=== PATIENT | male | born 1955 | race Caucasian/White ===

== ENCOUNTER → 2018-03-03 14:50 | Outpatient (REF) | payer OTHER, SELFPAY | LOC: LAB 14:50 | PROVIDERS: Visit Provider Otolaryngology | DX: H60.393 Other infective otitis externa, bilateral (principal) | CPT/HCPCS: 87070; 87186; 87205 ==

== ENCOUNTER 2019-02-27 05:48 | Inpatient (IN) | payer OTHER, SELFPAY ==
[2019-02-26 11:59] VITALS: BMI 21.9
[2019-02-27] VITALS (43 sets, daily range): BP systolic 65–192; BP diastolic 39–116; PULSE 81–143; RESP 0–24; TEMP 36.2–37.1; O2SAT 88–100; BMI 21.9
--- NOTE | 2019-02-27 | DI.RAD.S_ITS ---
PROCEDURE: XR CERVICAL SPINE 2V OR 3V INDICATIONS: C3-7 ACDF TECHNIQUE: 5 operative views areof the cervical spine were acquired. COMPARISON: [facility] FABI Grewal, XR CERVICAL SPINE 2 OR 3 VIEWS, 12/08/2018, 14:26. FINDINGS: Operative images demonstrate ACDF at C3-C7 with interbody fusion material placed at C3-C7 and bilateral facet fusion material placed at C3-C7. IMPRESSION: Operative imaging employed for multilevel fusion as described above. Dictated by: Johnny Oneal M.D. on 02/27/2019 at 12:35 Approved by: Johnny Oneal M.D. on 02/27/2019 at 12:42
[2019-02-27] MEDS: LACTATED RINGERS 1,000 ML 42 ML IV ×2 (07:10→09:07)
--- NOTE | 2019-02-27 07:16 | PM.PREOP ---
Pre-operative Note Interval Note History & Physical reviewed/Exam performed by Physician: Yes Changes to H&P: No
[2019-02-27] MEDS: CEFAZOLIN 2 GM/100 ML FROZ.PIGGY IV ×3 (07:45→22:10)
[2019-02-27] MEDS: BUPIVACAINE 0.5% W/ EPI (PF) 30 ML VIAL INJ (08:31)
[2019-02-27] MEDS: THROMBIN (RECOMBINANT) 5,000 UNIT VIAL 5000 UNIT TOP (08:32)
[2019-02-27] MEDS: SODIUM CHLORIDE 0.9% 1,000 ML, GENTAMICIN 80 MG IRR (08:35)
--- NOTE | 2019-02-27 08:49 | SUR.OPER ---
Supine, head on gel donut. Arms padded with gel pads, tucked at sides, towel roll under shoulders. Safety belt at thigh. Legs uncrossed.
--- NOTE | 2019-02-27 08:50 | SUR.OPER ---
Prone on padded OR bed, head in foam head support, gel chest rolls, gel pad under knees, pillows under lower legs, toes free of pressure.Arms secured with draw sheet at sides by . Safety belt at thigh.
--- NOTE | 2019-02-27 11:30 | PM.OP.1 ---
Operative Date/Time/Diagnoses Date of procedure: 02/27/19 Time of procedure: 11:30 Pre-op diagnosis: Cervical stenosis with myelopathy Post-op diagnosis: same Procedure & Clinicians Procedure: C3-4, C4-5, C5-6, C6-7 posterior instrumented fusion C3-4, C4-5, C5-6, C6-7 ACDF with cages Iliac crest bone graft aspirate Use of microscope Same procedure as scheduled: Yes Indications: [age] year old male with progressive cervical myelopathy. They had failed conservative management and requested operative intervention. Risks and benefits of surgery were discussed and appropriate consents were obtained. Surgeon: Joo Osullivan [employer] Operator: Navya Castellano Anesthesia Type: General Operative Notes Findings: None Closure Type: primary Specimen(s): none sent Prosthetic devices, grafts, tissues, transplants, or devices: [place] Cavus posterior Eugene DARWIN-C anterior Applied: catheter Estimated Blood Loss (mL): 5 Blood products transfused: none Procedure in detail: The patient was brought to the operating room and intubated on the stretcher. Time-out was performed. There were then rolled over to the well-padded prone position on chest rolls. Two views of fluoroscopy were taken to confirm our positioning. The neck was then prepped and draped in the standard sterile fashion. Preoperative antibiotics were given. Using fluoroscopy, we localized for planned incisions. Two small 8 mm horizontal incisions were made over the lateral masses approximately 2 fingers below our planned surgical site. We then spread down and opened up the fascia. Then percutaneously placed our Steinmann pin through the soft tissue into the facet joint at C3-4 under fluoroscopic visualization. We used the reamer to decorticate the lateral masses compromising the facet. A trocar was placed over the Steinmann pin into the facet and then the pin was removed. We used a rasp to decorticate the facet joint itself. We then filled the Cavus cage with Primagen bone graft and impacted it into the facet joint at C3-4 under fluoroscopic guidance. We then took the lateral mass screw and placed it through the cage and then into the lateral mass for the posterior screw fixation. The tip inserter was removed and we packed more bone graft down the trocar covering the lateral mass. This was done bilaterally. This completed the instrumented posterior fusion at C3-4. We then went to the next levels at C4-5, C5-6, and C6-7. The same procedure was performed with preparation, placement of the cage with bone graft, and placement of the screw for bilateral instrumented posterior fusion at C4-5, C5-6, and C6-7. The wounds were irrigated. The skin was closed and a sterile dressing placed. The patient was then rolled over to the table in the supine position and positioned for the anterior surgery. The arms were tucked and a shoulder roll was placed. The neck and left iliac crest were prepped and draped in the standard sterile fashion. A 3 cm oblique incision was made on the left side of the neck along the skin fold. Bovie was used to split the platysma. We then bluntly dissected a standard anterolateral approach to the precervical fascia. A marker was placed and x-ray taken to confirm our positioning. We then used the Bovie to the subperiosteally lift up the longus colli muscles. Self-retaining retractors were placed. We then placed [place] pins and distracted across the C6-7 disc space. We brought in the microscope. A complete anterior discectomy was performed at C6-7 using a combination of scalpel, curettes, pituitaries, and Kerrison rongeurs. The bur was used to take down the posterior osteophytes as well as decorticate the disc space. We then released the PLL and used the Kerrison to remove any further posterior osteophytes and disc material. At the end a nerve hook could be swept cephalad caudally and out the neural foramen and everything was open. We trialed for our cages. A small stab incision was made over the left iliac crest. We placed a Jamshidi aspiration needle into the iliac crest and aspirated several mL of bone marrow graft. We then took our Eugene LDR DARWIN-C cage and packed it with Primagen, and mixed in the bone marrow aspirate. The cage was then placed into the disc space under fluoroscopic guidance. The 2 locking plates were placed through the cage for fixation. This completed the ACDF at C6-7. We then went to the next levels at C5-6, C4-5, and C3-4. Again a complete diskectomy was performed including taking down the PLL and posterior osteophytes and disc material. The endplates were prepped with a bur. We trialed and then packed our DARWIN-C cage with the bone graft and then placed into the disc space. The locking plates were placed as well. This completed the ACDF at C3-4, C4-5, and C5-6. Final x-rays were taken. The wound was copiously irrigated. There was no bleeding. The carotid was bleeding nicely. The platysma was closed. The superficial skin were closed. A Steri-Strip was placed over the iliac crest incision. Sterile dressings were placed. The patient was then extubated and brought to the recovery room without complication. Complications: none Post-operative Condition: stable Disposition: PACU Plan for aftercare: Inpatient. Up with PT.
--- NOTE | 2019-02-27 12:50 | SUR.PHASEI ---
1240 Patient moving minimal air, no rise and fall of chest noted. Patient unresponsive to verbal,tactile or sternal rub. Anesthesia to bedside to assist nurses. Oral airway placed with no improvement in air movement. Nasal trumpet, size 8, placed to right nare by Dr Rose. Patient still exhibits no response. Paged Respiratory therapy to assist with possible intubation and ABG draw. Additional nurses to bedside to assist.
--- NOTE | 2019-02-27 12:58 | SUR.PHASEI ---
Addendum entered by Vera Vegas R.N. 02/27/19 15:31: Patient's HR increased to 143 Sinus Tachycardia after receiving Robinul and Neostigmine. Original Note: Placed patient on cardiac defib pads and on cardiac defibrillator. Labetalol 15 mg IV given by Dr Rose. ABG drawn from left wrist by RT.
[2019-02-27 13:18] LABS: Add Manual Diff / Slide Review NO; Basophils Absolute Auto 0 /uL (0-100); Basophils Percent Auto 0.2 % (0-2); Eosinophils Absolute Auto 0 /uL (0-450); Eosinophils Percent Auto 0.3 % (2-4); Hematocrit 47.7 % (41-53); Lymphocytes Absolute Auto 1000 /uL (1100-4500); Mean Corpuscular HGB Conc 33.5 % (30-36); Mean Corpuscular Hemoglobin 32.9 PG (26-34); Mean Corpuscular Volume 97.9 fL (80-100); Monocytes Absolute Auto 300 /uL (0-900); Monocytes Percent Auto 2.8 % (3-14); Neutrophils Absolute Auto 8300 /uL (1500-7000); Neutrophils Percent Auto 86.7 % (50-75); Platelet Count 204 X10^3/uL (150-400); Red Blood Cell Count 4.87 X10^6/uL (4.5-5.9); Red Cell Distribution Width 13.9 % (11.6-14.8); White Blood Cell Count 9.6 X10^3/uL (4.5-11.0)
--- NOTE | 2019-02-27 13:18 | DI.RAD.S_ITS ---
PROCEDURE: XR CHEST 1V INDICATIONS: post intubation TECHNIQUE: One view of the chest was acquired. COMPARISON: None. FINDINGS: Surgical changes and devices: Endotracheal tube is seen with tip projecting approximately 7.8 cm above the andrew. Lungs and pleura: Scattered subsegmental atelectasis and/or scarring. No focal consolidation. No pleural effusions or pneumothorax. Mediastinum: Mediastinal contours appear normal. Heart size is normal. Bones and chest wall: No suspicious bony lesions. Overlying soft tissues appear unremarkable. IMPRESSION: Endotracheal tube with the tip projecting 7.8 cm above the andrew. Scattered subsegmental atelectasis and/or scarring. No acute consolidation. Dictated by: Crow Chan M.D. on 02/27/2019 at 13:56 Approved by: Crow Chan M.D. on 02/27/2019 at 13:57
--- NOTE | 2019-02-27 13:24 | PM.PROC.1 ---
Procedures Date/Time Date of procedure: 02/27/19 Time of procedure: 13:20 Intubation Time out performed: Yes Sedative: other (propofol) Mg given: 150 Paralytic: succinylcholine Mg given: 58 Laryngoscope: fiber optic video scope ET tube size: 8 ET tube uncuffed: No Tube secured depth (cm): 23 Tube secured location: teeth Tube placement confirmation: visualized tube passing through cords, equal breath sounds bilaterally, no breath sounds over epigastrium and confirmation by capnometry Patient tolerated procedure: no complications Intubation complications: none Additional comments: PACU, pt unresponsive with inadequate respiration post op, no change with narcan x 3, neostigmine 2mg and glycopyrrolate 0.4mg. RSI, DL x 1 grade 1 with glidescope LP3. CXR confirmed ETT palcement.
--- NOTE | 2019-02-27 13:30 | SUR.PHASEI ---
1315 RT here to assist with intubation due to still no response from patiient after previous measures. RSI done with no difficulty, 8 ET tube inserted. Good breath sounds bilaterally upon auscultation. Good color change with CO2 detector. Xray notified of need for PCXR post intubation.
[2019-02-27 13:33] LABS: Alanine Aminotransferase 106 IU/L (<50); Albumin 3.8 g/dL (3.5-5.0); Albumin Globulin Ratio 1.3 (1.0-2.8); Alkaline Phosphatase 76 U/L (38-126); Aspartate Aminotransferase 240 IU/L (17-59); Blood Urea Nitrogen 24 mg/dL (9-20); Calcium 9.1 mg/dL (8.4-10.2); Chloride 98 mmol/L (98-107); Estimated Glomerular Filt Rate > 60.0 mL/min (>60); Globulin 2.9 g/dL (1.7-4.1); Glucose 144 mg/dL (80-110); Sodium 140 mmol/L (137-145); Total Protein 6.7 g/dL (6.3-8.2)
--- NOTE | 2019-02-27 13:33 | SUR.PHASEI ---
Preparing patient for transport to ICU. O2 sat 99% with Et tube, bp 74/47, map of 56.
--- NOTE | 2019-02-27 13:34 | SUR.PHASEI ---
Addendum entered by Vera Vegas R.N. 02/27/19 15:32: Gave bedside report to IGNACIO Maria Original Note: To ICU via bed with RT, additional nursing staff. Patient on transport monitor at transfer. This nurse will give bedside report to ICU nurse.
[2019-02-27 13:42] LABS: Carbon Dioxide 38 mmol/L (22-32); HEMOLYSIS 20 (0-50)
--- NOTE | 2019-02-27 14:18 | P.CONS_ITS ---
History of Present Illness Consult details Date Patient Seen: 02/27/19 Time Patient Seen: 14:18 Chief complaint: Cervical Fusion Anterior/Posterior Reason for consult: Hypercarbic respiratory failure Requesting provider: Joo Osullivan Narrative: Edouard Jung is a 63-year-old male with past medical history of hypertension and hypothyroidism who is postoperative day 0 after C3-C7 posterior fusion and ACDF with cages who needed to be intubated in the PACU as the patient was extremely somnolent. Blood gas was checked and his pCO2 was 130. The patient was intubated and brought to the ICU. History is obtained from the patient's at bedside. She states over the past 2 weeks the patient has been profoundly fatigued, mumbling, and falling asleep easily while sitting on the couch or sometimes even speaking with his . She does endorse periods of apnea but not profound snoring at night when he is asleep. He has woken up on occasion with anxiety about not being able to breathe. He fell and broke a rib approximately 3 months ago for which the patient has not been breathing heavily since. He has also been on opiate pain medications intermittently. The also endorses significant dyspnea on exert ion, limited to a few feet. He smokes about a pack a day. She does endorse that he did drink alcohol up until his rib fracture a few months ago quite heavily. But has cut back. She did say he had 2 glasses of whiskey the night before surgery because he has been having difficulty sleeping. She also endorses an 80-90 lb weight loss over the past year which is unintentional. Meds Home Medications and Allergies Home Medications Medication Instructions Recorded Confirmed Type ibuprofen 400 mg PO Q6H PRN 02/26/19 02/26/19 History levothyroxine 75 mcg PO DAILY 02/26/19 02/27/19 History lisinopril 20 mg PO DAILY 02/26/19 02/27/19 History Allergies Allergy/AdvReac Type Severity Reaction Status Date / Time meperidine [From Demerol] Allergy Severe ITCHING Verified 02/27/19 06:51 celecoxib [From Celebrex] Allergy Intermediate Hives Verified 02/27/19 06:51 shellfish derived Allergy Intermediate Hives Verified 02/27/19 06:51 Sulfa (Sulfonamide Allergy Intermediate Hives Verified 02/27/19 06:51 Antibiotics) Review of Systems Review of Systems Narrative: All other systems reviewed with the patient's and are negative unless otherwise stated. Unobtainable from the patient due to mental status Exam Vital Signs (past 8 hours): - 02/27/19 06:51 02/27/19 12:20 02/27/19 12:25 Temperature 97.6 F Pulse Rate 91 H 103 H 101 H Respiratory Rate 15 13 10 L Blood Pressure 159/100 H 186/110 H 189/98 H Pulse Oximetry 93 99 98 02/27/19 12:30 02/27/19 12:36 02/27/19 12:40 Temperature Pulse Rate 91 H 99 H 97 H Respiratory Rate 6 L 0 L 7 L Blood Pressure 184/99 H 175/94 H 187/94 H Pulse Oximetry 96 92 88 L Oxygen Delivery Method Non -Rebreather Oxygen Flow Rate 15 Narrative Exam Narrative: GENERAL APPEARANCE: Well developed, well nourished, unarousable, intubated SKIN: Inspection of the skin reveals no rashes, ulcerations or petechiae. HEENT: Pupils pinpoint and minimally reactive, no scleral icterus, oral mucosa moist. NECK: Supple and symmetric. Soft C-collar is in place, dressings clear dry and intact after surgical interventions. Trachea midline. CHEST: Normal AP diameter and normal contour without any kyphoscoliosis. LUNGS: Auscultation of the lungs revealed no wheezes, rhonchi, or rales. There is poor air movement. CARDIOVASCULAR: There was a regular rate and rhythm without any murmurs, gallops, rubs. Peripheral pulses were 2+ and symmetric. ABDOMEN: Soft and nontender with normal bowel sounds. No ascites was noted. There is a dressing in left lower quadrant that is clear dry and intact. MUSCULOSKELETAL: There was no effusions noted. Muscle strength and tone were normal. EXTREMITIES: No cyanosis, clubbing or edema. NEUROLOGIC: Sedated, pinpoint pupils as noted above. Muscle tone is grossly normal bilaterally. Vent settings: Respiratory rate 24, peep of 5, tidal volume 450, FiO2 100%, saturating at 100%, during my exam ultimately turned down to 35% O2 and patient was saturating in the upper 90s. Objective Labs Result Diagrams: 02/27/19 13:00 02/27/19 13:00 Labs: Laboratory Results - last 24 hr 02/27/19 02/27/19 13:00 13:00 WBC 9.6 RBC 4.87 Hgb 16.0 Hct 47.7 MCV 97.9 MCH 32.9 MCHC 33.5 RDW 13.9 Plt Count 204 Neut % (Auto) 86.7 H Lymph % (Auto) 10.0 L [place] % (Auto) 2.8 L Eos % (Auto) 0.3 L Baso % (Auto) 0.2 Neut # (Auto) 8300 H Lymph # (Auto) 1000 L [place] # (Auto) 300 Eos # (Auto) 0 Baso # (Auto) 0 Sodium 140 Potassium 4.0 Chloride 98 Carbon Dioxide 38 H BUN 24 H Creatinine 0.60 L Estimated GFR > 60.0 BUN/Creatinine Ratio 40.0 H Glucose 144 H Calcium 9.1 Total Bilirubin 2.0 H AST 240 H ALT 106 H Alkaline Phosphatase 76 Total Protein 6.7 Albumin 3.8 Globulin 2.9 Albumin/Globulin Ratio 1.3 Assessment & Plan Assessment & Plan narrative: Edouard Govea is a 63-year-old male with past medical history of hypertension hypothyroidism who is now in ICU after C3-C7 posterior f usion and ACDF with cages due to acute hypercarbic respiratory failure. There is likely a chronic component given the 's history over the last couple of weeks. Medicine was consulted for assistance with ventilator management. 1. Acute hypercarbic respiratory failure -there is likely a chronic hypercarbic car back respiratory failure given the patient's history and an elevated CO2 to 38. Etiology is likely multifactorial including obstructive sleep apnea, probable COPD, recent rib fracture resulting in hypoventilation, recent opiate use, followed by surgical intervention with additional narcotics. Chest x-ray does not show any evidence of active pneumonia. -repeat blood gas to monitor pCO2 after intubation -chest x-ray with ETT 7.8 cm above the andrew, will advance by 3cm with [facility] respiratory therapy. -depending on response to intubation and improvement in blood gas / mental status he could potentially be extubated soon -he will likely need outpatient sleep study / CONSUELO evaluation and outpatient PFTs for possible COPD -smoking cessation. 2. Transaminitis, unknown chronicity -could be secondary to chronic alcohol use given AST to ALT ratio of greater than 2:1. His T bili is also elevated in this could be indicative of alcoholic hepatitis. This could also be due to ischemic injury, however this is unclear at this time. -obtain abdominal ultrasound -continue to follow hepatic function 3. HTN, chronic, stable - reports he has stopped taking his medication for the past week because he was confused about preoperative surgical instructions. 4. Hypothyroidism, chronic, stable -continue home levothyroxine Medicine will continue to follow. I spent 30 minutes providing critical care management this patient. This excludes time spent in performing separately billed procedures.
[2019-02-27 14:20] LABS: UR Morphine/Opiate cutoff 300 Negative (Negative); Ur Creatinine Normal (Normal); Ur Specific Gravity Normal (Normal); Urine Amphetamines Negative (Negative); Urine Barbiturates Negative (Negative); Urine Benzodiazepines Positive (Negative); Urine Cocaine Negative (Negative); Urine MDMA Negative (Negative); Urine Methadone Negative (Negative); Urine Methamphetamines Negative (Negative); Urine Oxycodone Negative (Negative); Urine Phencyclidine Negative (Negative); Urine Tetrahydrocannabinol Negative (Negative); Urine Tricyclic Antidepressant Negative (Negative); Urine pH Normal (Normal)
[2019-02-27] MEDS: LACTATED RINGERS 1,000 ML 100 ML IV (14:45)
--- NOTE | 2019-02-27 14:48 | PC.NURSE ---
At 1312, Versed 4 mg IV given. At 1313, 85 mg of Succinylchooline and 150 mg of propofol given. Patient intubated at 1315 by anesthesiology.
--- NOTE | 2019-02-27 15:01 | SUR.PHASEI ---
1300 Late entry: Bedside EKG done at 1300.
--- NOTE | 2019-02-27 15:07 | DI.US.S_ITS ---
PROCEDURE: US ABDOMEN LIMITED INDICATIONS: ELEV LFTs, H/O ETOH TECHNIQUE: Real-time focused scanning was performed of the abdomen, with image documentation. COMPARISON: [facility], CT, ABD/PELVIS W/CON (PNL), 10/13/2011, 14:59. [facility], CT, ABD/PELVIS W/CON (PNL), 10/10/2011, 17:06. FINDINGS: The liver is normal in size and echotexture. Liver demonstrates slightly lobular contour. Gallbladder is surgically absent. Common bile duct is prominent measuring a millimeter. Right kidney measures 11.6 mm in length. There is a 3.8 cm simple cyst in the inferior pole of the right kidney. No free fluid. IMPRESSION: 1. Liver has a slightly lobulated contour but is normal in size and echotexture. Please correlate with liver enzymes. 2. Prominent common bile duct is most likely related to cholecystectomy. 3. A 3.8 cm simple appearing cyst in the inferior pole of the right kidney. 4. No free fluid. Dictated by: Susy De La Vega M.D. on 02/27/2019 at 17:14 Approved by: Susy De La Vega M.D. on 02/27/2019 at 17:19
--- NOTE | 2019-02-27 15:25 | CM.DANOTE ---
Went to room 207 to assess patient around lunchtime. Patient was in surgery. Returned in afternoon and was told pt. went from surgery to ICU because he was unable to be extubated at present. Still intubated so unable to assess.
[2019-02-27 15:27] LABS: Prothrombin Time 11.5 SECONDS (10.1-12.7)
[2019-02-27 15:28] LABS: HCO3 ABG 32 mmol/L (22-26); Oxygen Saturation ABG 92 % (95-100); PO2 ABG 61 mmHg (80-100); TCO2 ABG 34 mmol/L (21-31)
[2019-02-27 15:29] LABS: Fractionated Inspired Oxygen 0.35
[2019-02-27 15:31] LABS: PTT Partial Thromboplastin Tim 32 SECONDS (26.4-36.2)
--- NOTE | 2019-02-27 15:33 | SUR.PHASEI ---
Late Entry for 1300. 18 gauge IV placed to left antecubital on one stick by IGNACIO Sheridan. Labs drawn and sent for analysis.
[2019-02-27] MEDS: DEXAMETHASONE 4 MG/ML VIAL IV ×2 (15:34→21:11)
--- NOTE | 2019-02-27 15:36 | PT-IP ANOTE ---
Checked with ICU nurse and pt is still intubated and not appropriate for PT at this time.
--- NOTE | 2019-02-27 15:48 | PC.NURSE ---
Rec'd pt from PACU at 1340 to room 101. Pt intubated to vent. Hypotensive but receiving LR bolus at this time. Dr. Rose at bedside administering meds to improve hypotension. Snow, , at bedside. Completed admission assessment. States pt has hx of sleep apnea and reports intermittent confusion and excessive daytime sleepiness that has been getting increasingly worse. Educated to room, routine, and equipment. Dr. Jerome to bedside. Pt began waking up approx 1430 opening eyes and tracking voice. Unable to follow directions. Intermittently moving fingers bilaterally. VORB from Dr. Jerome instructs not to start narcan gtt. Infusing LR at 100 ml/hr. Rec'd order for soft wrist restraints for ETT protection. updated on plan of care. Potential to extubate once awake with improvement in ABG.
[2019-02-27] MEDS: LORazepam 2 MG/ML INJ (18:37)
--- NOTE | 2019-02-27 19:21 | PC.NURSE ---
1814 - Pt able to open eyes and follow commands. Pupil diameter improved to 4mm reactive. Attempt to initiate breathing trial. MD and RT at bedside. Pt anxious, while awake breathing is tachypneic, then when relaxed pt becomes apneic. When ventilator alarms pt startles awake and returns to spontaneous breaths. Attempt pressure support trial, same pattern continued and ventilator defaults to back up settings. RT, Wallace return pt to SIMV at previous settings. Discussed anxiety with MD. Ativan order obtained. Given at 183. 1900 - Following onset of Ativan for anxiety. Pt repositioned and care provided. Returning bed to low position, corner of bed caught on medical air connection site at wall. Tubing was broken at wall connect. Manual bag of patient initiated, RT paged overhead to replace connection. Pt vitals and sat remain stable during transition. Pt brought to room from lobby to provide pt support.
[2019-02-27] MEDS: FAMOTIDINE 20 MG/50 ML PIGGYBACK 200 MG IV (20:02)
[2019-02-27] MEDS: PROPOFOL 1,000 MG/100 ML VIAL 2.136 MG IV (20:03)
[2019-02-27] MEDS: HYDROMORPHONE 0.5 MG INJ IV (21:10)
[2019-02-28] VITALS (25 sets, daily range): BP systolic 104–130; BP diastolic 55–78; PULSE 86–108; RESP 12–25; TEMP 31–37.3; O2SAT 90–100
[2019-02-28] MEDS: LORazepam 2 MG/ML INJ 1 MG IV (00:16)
[2019-02-28] MEDS: HYDROMORPHONE 0.5 MG INJ IV ×2 (01:24→04:55)
[2019-02-28] MEDS: LACTATED RINGERS 1,000 ML 100 ML IV (01:25)
[2019-02-28] MEDS: DEXAMETHASONE 4 MG/ML VIAL IV ×2 (03:11→09:32)
[2019-02-28 04:52] LABS: Add Manual Diff / Slide Review NO; Basophils Absolute Auto 0 /uL (0-100); Basophils Percent Auto 0.1 % (0-2); Eosinophils Absolute Auto 0 /uL (0-450); Hematocrit 40.9 % (41-53); Hemoglobin 13.9 g/dL (13.5-17.5); Lymphocytes Absolute Auto 600 /uL (1100-4500); Lymphocytes Percent Auto 7.9 % (25-40); Mean Corpuscular HGB Conc 34.1 % (30-36); Mean Corpuscular Hemoglobin 32.3 PG (26-34); Mean Corpuscular Volume 94.8 fL (80-100); Monocytes Absolute Auto 400 /uL (0-900); Monocytes Percent Auto 4.9 % (3-14); Neutrophils Absolute Auto 6200 /uL (1500-7000); Neutrophils Percent Auto 87.1 % (50-75); Platelet Count 168 X10^3/uL (150-400); Red Blood Cell Count 4.31 X10^6/uL (4.5-5.9); Red Cell Distribution Width 13.7 % (11.6-14.8); White Blood Cell Count 7.2 X10^3/uL (4.5-11.0)
[2019-02-28 05:06] LABS: Alanine Aminotransferase 66 IU/L (<50); Albumin 3.1 g/dL (3.5-5.0); Albumin Globulin Ratio 1.3 (1.0-2.8); Alkaline Phosphatase 53 U/L (38-126); Aspartate Aminotransferase 71 IU/L (17-59); BUN Creatinine Ratio 36.7 (6-22); Bilirubin Total 1.1 mg/dL (0.2-1.3); Bilirubin Unconjugated 1.1 mg/dL (0.0-1.1); Blood Urea Nitrogen 22 mg/dL (9-20); Carbon Dioxide 28 mmol/L (22-32); Chloride 97 mmol/L (98-107); Estimated Glomerular Filt Rate > 60.0 mL/min (>60); Globulin 2.4 g/dL (1.7-4.1); Glucose 128 mg/dL (80-110); HEMOLYSIS 15 (0-50); Total Protein 5.5 g/dL (6.3-8.2)
[2019-02-28 05:15] LABS: Sodium 134 mmol/L (137-145)
[2019-02-28 06:06] LABS: Fractionated Inspired Oxygen 30; HCO3 ABG 31 mmol/L (22-26); Oxygen Saturation ABG 96 % (95-100); PCO2 ABG 38.7 mmHg (35-45); PO2 ABG 74 mmHg (80-100); TCO2 ABG 32 mmol/L (21-31); pH ABG 7.51 (7.35-7.45)
[2019-02-28] MEDS: SODIUM CHLORIDE 0.9% 1,000 ML 125 ML IV ×2 (06:43→15:37)
--- NOTE | 2019-02-28 07:48 | DI.RAD.S_ITS ---
This report includes an Addendum and supersedes previous reports for this exam. PROCEDURE: XR CHEST 1V INDICATIONS: increased secretions, now extubated TECHNIQUE: One view of the chest was acquired. COMPARISON: [facility], , XR CHEST 1V, 02/27/2019, 13:17. FINDINGS: Surgical changes and devices: Cervical spine fixation hardware is partially seen. Cholecystectomy clips are seen. The previously seen endotracheal tube has been removed. Lungs and pleura: There is focal blunting of the left costophrenic angle. No pneumothorax is seen. The right lung appears clear. Mediastinum: Mediastinal contours appear normal. Heart size is normal. Atherosclerotic calcification of the aortic arch is noted. Bones and chest wall: No suspicious bony lesions. Age-appropriate bony degenerative changes are seen. Overlying soft tissues appear unremarkable. IMPRESSION: Interval extubation. Left costophrenic angle blunting. This may be related to a pleural effusion with atelectasis or infiltrate. As clinically appropriate, a short-term followup chest series (with PA and lateral views) performed in deep inspiration is suggested for further evaluation. Dictated by: KAL COOK on 02/28/2019 at 7:18 Approved by: KAL COOK on 02/28/2019 at 7:21 ADDENDUM: I dictated and approved this case, not Kal Cook. Dictated by: Juan Torres M.D. on 02/28/2019 at 10:02 Approved by: Juan Torres M.D. on 02/28/2019 at 10:03
--- NOTE | 2019-02-28 08:41 | PT-IP ANOTE ---
By request of nursing hold on PT for this morning. Pt extubated this am. May be ready for PT this pm.
--- NOTE | 2019-02-28 08:42 | P.PN_ITS ---
Subjective Subjective Date Patient Seen: 02/28/19 Time Patient Seen: 08:42 Interval history: He is doing better. He was extubated this morning. Arm still feel weak but he feels like he is breathing better. Exam Vital Signs (past 8 hours): - 02/28/19 01:00 02/28/19 02:00 02/28/19 03:00 Temperature Pulse Rate 90 86 87 Respiratory Rate 16 16 18 Blood Pressure 116/69 104/61 113/55 L Pulse Oximetry 95 95 99 02/28/19 04:00 02/28/19 05:00 02/28/19 06:00 Temperature 98.9 F Pulse Rate 90 88 88 Respiratory Rate 16 16 16 Blood Pressure 113/65 108/65 128/56 L Pulse Oximetry 94 100 98 02/28/19 07:00 Temperature 99.2 F Pulse Rate 102 H Respiratory Rate 16 Blood Pressure 116/71 Pulse Oximetry 92 Fraction of Inspired Oxygen 35 Oxygen Delivery Method Mechanical Ventilation Oxygen Flow Rate 15 Back/Spine/Pelvis Other: CDI. 5/5 motor both upper extremities except for 1/5 left intrinsics, 3/5 bilateral clinical rn liaison Objective Labs Result Diagrams: 02/28/19 04:30 02/28/19 04:30 Labs: Laboratory Results - last 24 hr 02/27/19 02/27/19 02/27/19 13:00 13:00 13:00 WBC 9.6 RBC 4.87 Hgb 16.0 Hct 47.7 MCV 97.9 MCH 32.9 MCHC 33.5 RDW 13.9 Plt Count 204 Neut % (Auto) 86.7 H Lymph % (Auto) 10.0 L [place] % (Auto) 2.8 L Eos % (Auto) 0.3 L Baso % (Auto) 0.2 Neut # (Auto) 8300 H Lymph # (Auto) 1000 L [place] # (Auto) 300 Eos # (Auto) 0 Baso # (Auto) 0 PT INR APTT ABG pH ABG pCO2 ABG pO2 ABG HCO3 ABG Total CO2 ABG O2 Saturation ABG Base Excess FiO2 Sodium 140 Potassium 4.0 Chloride 98 Carbon Dioxide 38 H BUN 24 H Creatinine 0.60 L Estimated GFR > 60.0 BUN/Creatinine Ratio 40.0 H Glucose 144 H Calcium 9.1 Total Bilirubin 2.0 H Conjugated Bilirubin Unconjugated Bilirubin AST 240 H ALT 106 H Alkaline Phosphatase 76 Total Protein 6.7 Albumin 3.8 Globulin 2.9 Albumin/Globulin Ratio 1.3 Nasal Screen MRSA (PCR) U Opiates 300ng/mL cut Negative Ur Oxycodone Screen Negative Urine Methadone Screen Negative Ur Barbiturates Screen Negative U Tricyclic Antidepress Negative Ur Phencyclidine Scrn Negative Ur Amphetamines Screen Negative U Methamphetamines Scrn Negative Ur MDMA Scrn (Ecstasy) Negative U Benzodiazepines Scrn Positive H Urine Cocaine Screen Negative U Marijuana (THC) Screen Negative 02/27/19 02/27/19 02/27/19 13:55 14:34 15:06 WBC RBC Hgb Hct MCV MCH MCHC RDW Plt Count Neut % (Auto) Lymph % (Auto) [place] % (Auto) Eos % (Auto) Baso % (Auto) Neut # (Auto) Lymph # (Auto) [place] # (Auto) Eos # (Auto) Baso # (Auto) PT 11.5 INR 1.0 APTT ABG pH 7.44 ABG pCO2 47.0 H ABG pO2 61 L ABG HCO3 32 H ABG Total CO2 34 H ABG O2 Saturation 92 L ABG Base Excess 8.0 H FiO2 0.35 Sodium Potassium Chloride Carbon Dioxide BUN Creatinine Estimated GFR BUN/Creatinine Ratio Glucose Calcium Total Bilirubin Conjugated Bilirubin Unconjugated Bilirubin AST ALT Alkaline Phosphatase Total Protein Albumin Globulin Albumin/Globulin Ratio Nasal Screen MRSA (PCR) Negative for mrsa U Opiates 300ng/mL cut Ur Oxycodone Screen Urine Methadone Screen Ur Barbiturates Screen U Tricyclic Antidepress Ur Phencyclidine Scrn Ur Amphetamines Screen U Methamphetamines Scrn Ur MDMA Scrn (Ecstasy) U Benzodiazepines Scrn Urine Cocaine Screen U Marijuana (THC) Screen 02/27/19 02/28/19 02/28/19 15:06 04:30 04:30 WBC 7.2 RBC 4.31 L Hgb 13.9 Hct 40.9 L MCV 94.8 D MCH 32.3 MCHC 34.1 RDW 13.7 Plt Count 168 Neut % (Auto) 87.1 H Lymph % (Auto) 7.9 L [place] % (Auto) 4.9 Eos % (Auto) 0.0 L Baso % (Auto) 0.1 Neut # (Auto) 6200 Lymph # (Auto) 600 L [place] # (Auto) 400 Eos # (Auto) 0 Baso # (Auto) 0 PT INR APTT 32 ABG pH ABG pCO2 ABG pO2 ABG HCO3 ABG Total CO2 ABG O2 Saturation ABG Base Excess FiO2 Sodium 134 L Potassium 4.0 Chloride 97 L Carbon Dioxide 28 BUN 22 H Creatinine 0.60 L Estimated GFR > 60.0 BUN/Creatinine Ratio 36.7 H Glucose 128 H Calcium 9.0 Total Bilirubin 1.1 Conjugated Bilirubin 0.0 Unconjugated Bilirubin 1.1 AST 71 H ALT 66 H Alkaline Phosphatase 53 Total Protein 5.5 L Albumin 3.1 L Globulin 2.4 Albumin/Globulin Ratio 1.3 Nasal Screen MRSA (PCR) U Opiates 300ng/mL cut Ur Oxycodone Screen Urine Methadone Screen Ur Barbiturates Screen U Tricyclic Antidepress Ur Phencyclidine Scrn Ur Amphetamines Screen U Methamphetamines Scrn Ur MDMA Scrn (Ecstasy) U Benzodiazepines Scrn Urine Cocaine Screen U Marijuana (THC) Screen 02/28/19 05:32 WBC RBC Hgb Hct MCV MCH MCHC RDW Plt Count Neut % (Auto) Lymph % (Auto) [place] % (Auto) Eos % (Auto) Baso % (Auto) Neut # (Auto) Lymph # (Auto) [place] # (Auto) Eos # (Auto) Baso # (Auto) PT INR APTT ABG pH 7.51 H ABG pCO2 38.7 ABG pO2 74 L ABG HCO3 31 H ABG Total CO2 32 H ABG O2 Saturation 96 ABG Base Excess 7.0 H FiO2 30 Sodium Potassium Chloride Carbon Dioxide BUN Creatinine Estimated GFR BUN/Creatinine Ratio Glucose Calcium Total Bilirubin Conjugated Bilirubin Unconjugated Bilirubin AST ALT Alkaline Phosphatase Total Protein Albumin Globulin Albumin/Globulin Ratio Nasal Screen MRSA (PCR) U Opiates 300ng/mL cut Ur Oxycodone Screen Urine Methadone Screen Ur Barbiturates Screen U Tricyclic Antidepress Ur Phencyclidine Scrn Ur Amphetamines Screen U Methamphetamines Scrn Ur MDMA Scrn (Ecstasy) U Benzodiazepines Scrn Urine Cocaine Screen U Marijuana (THC) Screen Assessment & Plan Post-op Postoperative Procedures: Procedures Operation Date: 02/27/19 07:45 Actual Procedures Side Surgeon p C3-7 anterior discectomy and anterior/posterior instrumentated fusion w/ bone graft Joo Osullivan MD He is stable after extubation. Plan on getting him up with physical therapy later on today.
--- NOTE | 2019-02-28 08:43 | OT.IP.TRT ---
Current Diagnoses Other spondylosis with myelopathy, cervical region (02/27/19) Spinal stenosis, cervical region (02/27/19) Surgery Performed Operation Date: 02/27/19 07:45 Actual Procedures p C3-7 anterior discectomy and anterior/posterior instrumentated fusion w/ bone graft - Joo Osullivan MD Occupational Therapy Treatment Note M3 OT- IP Subjective and Pain Start: 02/27/19 15:37 Freq: Status: Active Protocol: Document 02/28/19 08:43 [facility] (Rec: 02/28/19 08:43 [facility] [id number]) OT- Subjective Occupational Therapy Visit Type Type Administrative Note Notes Pt called down to ICU and nursing states to check on pt in PM.
--- NOTE | 2019-02-28 08:50 | P.PN_ITS ---
Subjective Subjective Date Patient Seen: 02/28/19 Time Patient Seen: 10:48 Interval history: Edouard Jung is a 63-year-old male with past medical history of hypertension and hypothyroidism who is postoperative day 1 after C3-C7 anterior discectomy and posterior fusion who needed to be intubated in the PACU as the patient was extremely somnolent. Blood gas was checked and his pCO2 was 130. His blood gases continued to improve overnight. Likely over compensated as his pCO2 return to normal and he was slightly alkalotic this morning. He had a fair amount of thin secretions this morning and repeat chest xray was obtained. Patient's sedating medications were held this morning, and he was extubated to BiPAP. He is currently tolerating BiPAP well. He denies any chest pain, shortness of breath, nausea, vomiting, abdominal pain today. Exam Vital Signs (past 8 hours): - 02/28/19 01:00 02/28/19 02:00 02/28/19 03:00 Temperature Pulse Rate 90 86 87 Respiratory Rate 16 16 18 Blood Pressure 116/69 104/61 113/55 L Pulse Oximetry 95 95 99 02/28/19 04:00 02/28/19 05:00 02/28/19 06:00 Temperature 98.9 F Pulse Rate 90 88 88 Respiratory Rate 16 16 16 Blood Pressure 113/65 108/65 128/56 L Pulse Oximetry 94 100 98 02/28/19 07:00 Temperature 99.2 F Pulse Rate 102 H Respiratory Rate 16 Blood Pressure 116/71 Pulse Oximetry 92 Fraction of Inspired Oxygen 35 Oxygen Delivery Method Mechanical Ventilation Oxygen Flow Rate 15 Narrative Exam Narrative: GENERAL APPEARANCE: Well developed, well nourished, alert, falls asleep quickly SKIN: Inspection of the skin reveals no rashes, ulcerations or petechiae. HEENT: Pupils pinpoint and minimally reactive, no scleral icterus, oral mucosa moist. NECK: Supple and symmetric. Soft C-collar is in place, dressings clear dry and intact after surgical interventions. Trachea midline. CHEST: Normal AP diameter and normal contour without any kyphoscoliosis. LUNGS: Auscultation of the lungs revealed no wheezes, rhonchi, or rales. There is poor air movement. CARDIOVASCULAR: There was a regular rate and rhythm without any murmurs, gallops, rubs. Peripheral pulses were 2+ and symmetric. ABDOMEN: Soft and nontender with normal bowel sounds. No ascites was noted. There is a dressing in left lower quadrant that is clear dry and intact. MUSCULOSKELETAL: There was no effusions noted. Muscle strength and tone were normal. EXTREMITIES: No cyanosis, clubbing or edema. NEUROLOGIC: Alert but groggy, falls asleep easily, follows commands. Objective Imaging Chest x-ray: Radiologist's impression: patchy infiltrate in the L lower lobe new since previous exam. Labs Result Diagrams: 02/28/19 04:30 02/28/19 04:30 Labs: Laboratory Results - last 24 hr 02/27/19 02/27/19 02/27/19 13:00 13:00 13:00 WBC 9.6 RBC 4.87 Hgb 16.0 Hct 47.7 MCV 97.9 MCH 32.9 MCHC 33.5 RDW 13.9 Plt Count 204 Neut % (Auto) 86.7 H Lymph % (Auto) 10.0 L [place] % (Auto) 2.8 L Eos % (Auto) 0.3 L Baso % (Auto) 0.2 Neut # (Auto) 8300 H Lymph # (Auto) 1000 L [place] # (Auto) 300 Eos # (Auto) 0 Baso # (Auto) 0 PT INR APTT ABG pH ABG pCO2 ABG pO2 ABG HCO3 ABG Total CO2 ABG O2 Saturation ABG Base Excess FiO2 Sodium 140 Potassium 4.0 Chloride 98 Carbon Dioxide 38 H BUN 24 H Creatinine 0.60 L Estimated GFR > 60.0 BUN/Creatinine Ratio 40.0 H Glucose 144 H Calcium 9.1 Total Bilirubin 2.0 H Conjugated Bilirubin Unconjugated Bilirubin AST 240 H ALT 106 H Alkaline Phosphatase 76 Total Protein 6.7 Albumin 3.8 Globulin 2.9 Albumin/Globulin Ratio 1.3 Nasal Screen MRSA (PCR) U Opiates 300ng/mL cut Negative Ur Oxycodone Screen Negative Urine Methadone Screen Negative Ur Barbiturates Screen Negative U Tricyclic Antidepress Negative Ur Phencyclidine Scrn Negative Ur Amphetamines Screen Negative U Methamphetamines Scrn Negative Ur MDMA Scrn (Ecstasy) Negative U Benzodiazepines Scrn Positive H Urine Cocaine Screen Negative U Marijuana (THC) Screen Negative 02/27/19 02/27/19 02/27/19 13:55 14:34 15:06 WBC RBC Hgb Hct MCV MCH MCHC RDW Plt Count Neut % (Auto) Lymph % (Auto) [place] % (Auto) Eos % (Auto) Baso % (Auto) Neut # (Auto) Lymph # (Auto) [place] # (Auto) Eos # (Auto) Baso # (Auto) PT 11.5 INR 1.0 APTT ABG pH 7.44 ABG pCO2 47.0 H ABG pO2 61 L ABG HCO3 32 H ABG Total CO2 34 H ABG O2 Saturation 92 L ABG Base Excess 8.0 H FiO2 0.35 Sodium Potassium Chloride Carbon Dioxide BUN Creatinine Estimated GFR BUN/Creatinine Ratio Glucose Calcium Total Bilirubin Conjugated Bilirubin Unconjugated Bilirubin AST ALT Alkaline Phosphatase Total Protein Albumin Globulin Albumin/Globulin Ratio Nasal Screen MRSA (PCR) Negative for mrsa U Opiates 300ng/mL cut Ur Oxycodone Screen Urine Methadone Screen Ur Barbiturates Screen U Tricyclic Antidepress Ur Phencyclidine Scrn Ur Amphetamines Screen U Methamphetamines Scrn Ur MDMA Scrn (Ecstasy) U Benzodiazepines Scrn Urine Cocaine Screen U Marijuana (THC) Screen 02/27/19 02/28/19 02/28/19 15:06 04:30 04:30 WBC 7.2 RBC 4.31 L Hgb 13.9 Hct 40.9 L MCV 94.8 D MCH 32.3 MCHC 34.1 RDW 13.7 Plt Count 168 Neut % (Auto) 87.1 H Lymph % (Auto) 7.9 L [place] % (Auto) 4.9 Eos % (Auto) 0.0 L Baso % (Auto) 0.1 Neut # (Auto) 6200 Lymph # (Auto) 600 L [place] # (Auto) 400 Eos # (Auto) 0 Baso # (Auto) 0 PT INR APTT 32 ABG pH ABG pCO2 ABG pO2 ABG HCO3 ABG Total CO2 ABG O2 Saturation ABG Base Excess FiO2 Sodium 134 L Potassium 4.0 Chloride 97 L Carbon Dioxide 28 BUN 22 H Creatinine 0.60 L Estimated GFR > 60.0 BUN/Creatinine Ratio 36.7 H Glucose 128 H Calcium 9.0 Total Bilirubin 1.1 Conjugated Bilirubin 0.0 Unconjugated Bilirubin 1.1 AST 71 H ALT 66 H Alkaline Phosphatase 53 Total Protein 5.5 L Albumin 3.1 L Globulin 2.4 Albumin/Globulin Ratio 1.3 Nasal Screen MRSA (PCR) U Opiates 300ng/mL cut Ur Oxycodone Screen Urine Methadone Screen Ur Barbiturates Screen U Tricyclic Antidepress Ur Phencyclidine Scrn Ur Amphetamines Screen U Methamphetamines Scrn Ur MDMA Scrn (Ecstasy) U Benzodiazepines Scrn Urine Cocaine Screen U Marijuana (THC) Screen 02/28/19 05:32 WBC RBC Hgb Hct MCV MCH MCHC RDW Plt Count Neut % (Auto) Lymph % (Auto) [place] % (Auto) Eos % (Auto) Baso % (Auto) Neut # (Auto) Lymph # (Auto) [place] # (Auto) Eos # (Auto) Baso # (Auto) PT INR APTT ABG pH 7.51 H ABG pCO2 38.7 ABG pO2 74 L ABG HCO3 31 H ABG Total CO2 32 H ABG O2 Saturation 96 ABG Base Excess 7.0 H FiO2 30 Sodium Potassium Chloride Carbon Dioxide BUN Creatinine Estimated GFR BUN/Creatinine Ratio Glucose Calcium Total Bilirubin Conjugated Bilirubin Unconjugated Bilirubin AST ALT Alkaline Phosphatase Total Protein Albumin Globulin Albumin/Globulin Ratio Nasal Screen MRSA (PCR) U Opiates 300ng/mL cut Ur Oxycodone Screen Urine Methadone Screen Ur Barbiturates Screen U Tricyclic Antidepress Ur Phencyclidine Scrn Ur Amphetamines Screen U Methamphetamines Scrn Ur MDMA Scrn (Ecstasy) U Benzodiazepines Scrn Urine Cocaine Screen U Marijuana (THC) Screen Assessment & Plan Assessment & Plan narrative: Edouard Govea is a 63-year-old male with past medical history of hypertension hypothyroidism who is now in ICU after C3-C7 posterior fusion and ACDF with cages due to acute hypercarbic respiratory failure. There is likely a chronic component given the 's history over the last couple of weeks. Medicine was consulted for assistance with ventilator management. He was extubated to bipap this AM. 1. Acute hypercarbic respiratory failure -there is likely a chronic hypercarbic respiratory failure given the patient's history and an elevated CO2 to 38. Etiology is likely multifactorial including obstructive sleep apnea, probable COPD, recent rib fracture resulting in hypoventilation, recent opiate use, followed by surgical intervention with additional narcotics. Chest x-ray initially did not show any evidence of active pneumonia. He does have a LLL infiltrate on imaging this morning, and some increased secretions however no other evidence of pneumonia. Favor a mucous plug in his LLL at this time. -continue bipap for a few hours after extubation. -appreciate respiratory assistance -he will need outpatient sleep study / CONSULEO evaluation and outpatient PFTs for possible COPD -smoking cessation. 2. Transaminitis, acute, improving -could be secondary to chronic alcohol use given AST to ALT ratio of greater than 2:1. His T bili is also elevated in this could be indicative of alcoholic hepatitis. This could also be due to ischemic injury, however this is unclear at this time. These values are much improved today. -abdominal ultrasound showing a lobular echotexture, otherwise unremarkable. Incidental renal cyst noted. -continue to follow hepatic function 3. HTN, chronic, stable - reports he has stopped taking his medication for the past week because he was confused about preoperative surgical instructions. - continue home lisinopril 20 mg 4. Hypothyroidism, chronic, stable -continue home levothyroxine Code: full, surrogate decision maker is the patient's . Patient is planned for PT/OT evaluation later today. Medicine will continue to follow this patient after extubation today. Please do not hesitate to contact with questions.
--- NOTE | 2019-02-28 09:16 | PC.NURSE ---
Addendum entered by Ana Oconnell R.N. 02/28/19 14:28: pt removed from bipap at 1200 for assessment and lunchtime meal- he took small amount of lunch meal but didn't have his teeth - medicated with hydrocodone x 1 for surgical incision pain- taking small amount of po liquids- denies nausea, NS continues at 125cc/h assisted up to chair for few hours able to wean oxygen to 4L HFNC - poor effort on I-S BRINGING IT UP TO ONLY 500ML Original Note: PT EXTUBATED TO BIPAP WITH PLAN TO MAINTAIN SPO2 88-92% - HE DIDN'T TOLERATE INITIAL HIGH PRESSURES OF BIPAP AND DECREASED PRESSURES BY DR INTERIANO - PT TOLERATING MUCH BETTER BUT REMAINS ANXIOUS ABOUT SITUATION. EXTUBATED AT 0745 AND RESTRAINTS REMOVED AT THIS TIME- UPDATE TO AND FREQUENT REASSURANCE TO PT
[2019-02-28] MEDS: FAMOTIDINE 20 MG/50 ML PIGGYBACK 200 MG IV ×2 (09:22→21:10)
--- NOTE | 2019-02-28 09:24 | CM.DANOTE ---
Patient is a 63 year old male who was admitted on 02/27/19 for Cervical Fusion. Pt has REG PPO for insurance and his PCP is Dr. Rajinder Riddle. EMR was reviewed. Per Ortho MD, pt intubated after surgery and Hospitalist following for medical management. Per RN, pt recently successfully extubated this morning and currently on bipap until around lunchtime today before working with PT/OT this afternoon. PT/OT pending. SW met briefly with pt's spouse and pt currently on bipap and confirmed that they live at home in [place] and pt is mostly independent with ADL's at baseline and denies any hx of HH or SNF. Pt has had multiple surgeries prior and has been able to successfully d/c home without needs. Spouse is hopeful that pt can d/c home with her support when stable. Plan: SW to follow closely after PT/OT eval and recommendations this afternoon to determine if pt will be safe to d/c home with supportive spouse when stable. MARIA Sheppard Discharge Planning/Care Management CM Discharge Assessment Start: 02/28/19 09:21 Freq: Status: Active Protocol: Document 02/28/19 09:21 BF (Rec: 02/28/19 09:23 BF [id number]) Discharge Planning Assessment Assigned Client Service Associate MARIA Neely Advance Directives? No Advance Directives on File No History Provided By Patient,Family Member,Medical Record Has Patient been admitted in last 30 No days? Prior Living Arrangements House Household Members spouse Type of transporation used prior to Drives own vehicle admit Independent with ADL's Yes Is patient alert and oriented? Yes Caregiver for Another No Community Services used prior to Physical Therapy admission: Comment Pt recently extubated and on bipap and to work with PT/OT this afternoon for initial eval Discharge Plan Home Transportation Arrangement Spouse bedside and can provide transport if pt safe for home Additional Comment Waiting for PT/OT initial eval and recommendations Review Status In Process Please Provide Date Initial DC 02/28/19 Assessment Was Performed Next Review Type Continued Stay Review Pre-Anesthesia Assessment Start: 02/26/19 11:59 Freq: Status: Active Protocol: Document 02/26/19 11:59 CAB (Rec: 02/26/19 12:37 CAB [id number]) Pre-Anesthesia Assessment PAC Comment Pt stopped lisinopril and levothyroxine a week ago, it said to. Reviewed medication instructions with pt and encouraged him to take today's doses, ok to take levothyroxine, HOLD lisinopril dos. Pt verbalized understanding. Patient Information Reviewed Via Phone Assessment Assessment Completed With Patient Diagnostic Results CBC,EKG Comment Lab/EKG scanned to record Primary Care Provider Rajinder Riddle Seen Specialist in Last 12 Months Yes Specialist Seen Corn Chip Maker,Orthopedist Primary Language Wolof Supervisor Weaving Required No Height 180.34 cm Weight 71.214 kg Body Mass Index (BMI) 21.9 Hearing Ability Normal Visual Assist Glasses Dentition Type Teeth, Natural Present,Full- Upper Barriers to Learning None Hx Anesthesia Reactions No Hx Family Anesthesia Reaction No Hx Malignant Hyperthermia No Hx Blood Transfusions No Anesthesia Review Requested No alcohol intake current alcohol intake frequency a few times a week Smoking Status Current every day smoker Tobacco type cigarettes Smoking packs per day 1 Pain Present Pain Reported Musculoskeletal Symptoms Abnormal Gait,Difficulty Walking,Joint Pain,Limited Range of Motion,Muscle Weakness,Neck Pain History of Falling (Recent or History of Yes ) Patient is completely paralyzed or No completely immobile Mental Status Oriented to own ability Is patient on oxygen? No Does patient have RAMIRES/SOB Yes: Pt feels due to neck pain Hx Sleep Apnea Yes CPAP/BIPAP use prescribed not used Currently Taking a Beta Brian No Can You Climb a Flight of Stairs Without No SOB Hx Chest Pain No Hx SOB Yes Hx Syncope or Dizziness No Anti-Coagulant Therapy No Has a Corn Chip Maker Yes: Dr. Carbajal Cardiac Testing Yes: Echo @ [facility] 02/05/19 Hx Pacemaker/ICD No Pacemaker Rep Required? No Cardiac Clearance Received Yes Comment Cardiac records put to surgery folder for dos Diet Type At Home Regular dysphagia No Urinary Catheter Present No Hx Urinary Self Catheterization No Diabetes No Hx Drug Resistant Organism No Presence of External or Internal Medical No Devices Have you traveled outside the [facility] States in the last 30 days? Marital Status Lives With spouse Prior Living Arrangements House Number of Floors (Floors) One Floor Support System Family,Spouse Does the Patient Have Assistance After Yes Surgery Patient Discharge Plan Description Return Home Comment Pt advised 2 day length of stay per surgeon Feels Safe in Current Environment Yes Been Physically Hurt or Threatened By a No Person in Current Environment Do you have thoughts of harming yourself None or others? Are you currently considering suicide? No Do you have a plan to hurt yourself or No Plan others? Do You Have Any Spiritual Beliefs That No May Affect Your HC Choices? Do You Have Any Cultural Practices That No May Affect Your HC Choices? Who Can We Speak to About Patient's Care Family, friends Identifying Code for Release of Patient Declines to issue Information Health Care Proxy/Next of Kin Snow () Health Care Proxy Emergency Contact Name Snow () Emergency Contact Advance Directives? No Power of Change Management No PAC Instructions Medications to take/avoid, Nasal antibiotic,No ETOH/ petroleum product on skin DOS, NPO,Post-op transportation,Pre -surgical wash,Sturdy shoes/ comfortable clothes,Do not bring valuables and remove jewelry
[2019-02-28] MEDS: NICOTINE 21 MG PATCH TOP (09:31)
[2019-02-28] MEDS: HYDROCODONE/ACET 5/325 TABLET 1 TAB PO ×2 (13:15→15:30)
[2019-02-28] MEDS: DOCUSATE 100 MG CAPSULE PO ×2 (13:18→21:04)
[2019-02-28] MEDS: LEVOTHYROXINE 75 MCG TABLET PO (13:29)
[2019-02-28] MEDS: hydrOXYzine pamoate 25 MG CAPSULE PO ×2 (15:29→21:04)
--- NOTE | 2019-02-28 15:29 | PT.IIE ---
Current Diagnoses Other spondylosis with myelopathy, cervical region (02/27/19) Spinal stenosis, cervical region (02/27/19) Surgery Performed Operation Date: 02/27/19 07:45 Actual Procedures p C3-7 anterior discectomy and anterior/posterior instrumentated fusion w/ bone graft - Joo Osullivan MD Surgical History (Last Updated 02/26/19 @ 12:17 by Diamond Frausto RN) Hx of appendectomy (Acute ~2011) Hx of cholecystectomy (Acute) Hx of hand surgery (Acute ~2007) Hx of hernia repair (Acute) S/P epidural steroid injection (Acute) Medical History (Last Updated 02/27/19 @ 16:45 by Evelin Pino RN) Anxiety (Acute) Cold feet (Acute) 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 He reports feeling dizzy whenever he leaned forward. To stand from sitting he reports that he had to lean forward to get his weight over his feet and then stand. His reports that when he attempted stairs he would lose his balance backwards. Activities of Daily Living and IADL's Pt and report independence with bathing/ hygiene. Independent with dressing with the exception of shoes and socks. Would experience dizziness when leaning forward to address his shoes/socks. Social History Household Members spouse Living Arrangements House Number of Floors (Floors) One Floor Number of Stairs To Enter/Railing? 2 steps, no railing to enter whether from front door or garage. Home Environment Standard Height Toilet,Walk in Shower Employment Status 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 His job requires static standing and lifting up to a max of 30 pounds throughout the day. M2 PT-IP Current Condition Start: 02/27/19 15:35 Freq: NEEDED Status: Active Protocol: Document 02/28/19 14:48 NFW (Rec: 02/28/19 15:29 [facility] [id number]) Physical Therapy Current Condition Current Condition Evaluation Date 02/28/19 Treatment Diagnosis Cervical stenosis with myelopathy, s/p C3-8 post fusion and ACDF Precautions Cervical Spine Precautions Soft Collar for Comfort,No Heavy Lifting,Log Roll Brace Soft collar Weight Bearing Status Weight Bearing Status Full Weight Bearing M3 PT-IP Subjective Start: 02/27/19 15:35 Freq: NEEDED Status: Active Protocol: Document 02/28/19 14:48 NFW (Rec: 02/28/19 15:29 [facility] [id number]) Subjective Physical Therapy Visit Type Type Initial Evaluation Visit Start Time 14:00 Visit Stop Time 14:45 Total Visit Minutes 45 Notes Pt asleep in recliner with in room at start of treatment. Pt. drowsy throughout treatment session. Was able to answer questions appropriately. Voice is soft with difficulty raising voice. 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 Rating pain at back of neck on the right at level of 5/10 . Denies n&t into UEs. Patient Goals Goal is to return home with . Therapy Pain Assessment Pain When Pain Assessed At Rest Pain Present Pain Present Pain Reported Location low back and neck Intensity 5 Scale Used Numeric (1 - 10) M4 PT-IP Mobility and Gait Start: 02/27/19 15:35 Freq: NEEDED Status: Active Protocol: Document 02/28/19 14:48 NFW (Rec: 02/28/19 15:29 [facility] [id number]) PT-Bed Mobility Assessment Rolling Type of Rolling Roll to Left Level of Assist Contact Guard Assistance,1 Person Assistance Sit to Supine Sit to Supine Minimal Assistance,1 Person Assistance Scooting Scooting Up and Down in Bed Standby Assistance PT-Transfer Assessment Sit to and From Stand Sit to and from Stand Minimal Assistance,1 Person Assistance,Use of Upper Extremities Equipment Transfer Assistive Device Gait Belt,Front Wheeled Walker Orthotic/Prosthetic Devices or Brace: No Transfers Transfer Destination Bed,Chair Transfer Technique Stand Step Pivot Transfer Ability Level of Assist Minimal Assistance,1 Person Assistance,Use of Upper Extremities Comments Mobility Comments Pt moves slowly. Verbal cuing for proper log rolling with bed mobilities. Gait Assessment Gait Gait Assistance Required: Minimum Assistance,1 Person Assist Distance (Feet) 2 Assistive Devices Assistive Device Gait Belt,Front Wheeled Walker Orthotic/Prosthetic Devices or Brace: No Gait Deviations General Gait Pattern Ataxic,Decreased Stride Length ,Decreased Feet Clearance, Festinating,Flexed Trunk, Narrow Based Gait Factors Limiting Gait Function Factors Limiting Gait Function Abnormal Tonal Influences, Decreased Activity Tolerance, Decreased Strength, Incoordination,Limited Range of Motion,Pain,Poor Balance, Poor Safety Awareness, Respiratory Distress Comments Gait Comments Patient's gait is shuffled with difficulty lifting RLE> LLE. Did not have the energy to walk more than from chair to bed. He relies heavily onto UE in ambulation with FWW for balance. PT-Balance Assessment Sitting Balance and Reactions Static Sitting Balance Ability Good Dynamic Sitting Balance Ability Fair Standing Balance and Reactions Static Standing Balance Ability Fair Dynamic Standing Balance Ability Poor Device Used FWW M5 PT-IP Objective Assessments Start: 02/27/19 15:35 Freq: NEEDED Status: Active Protocol: Document 02/28/19 14:48 NFW (Rec: 02/28/19 15:29 NFW [id number]) Orientation Orientation/Cognition Level of Alertness Lethargic Orientation Name,Place,Situation Language Function Ability Garbled Speech Safety Awareness Decreased Safety Awareness Gross Range of Motion Upper Extremity ROM Assessment Bilaterally Impaired Impairments AROM against gravity in flexion <90 degrees; abduction ~60 degrees with right weaker . AAROM against gravity in flexion to ~120 degrees; abduction to 90 degrees with right weaker. Lower Extremity ROM Impairments ROM LEs functional. Strength Upper Extremity Strength Assessment Bilaterally Impaired Shoulder 3/5 Elbow 4/5 Wrist 4/5 Hand 3/5 Lower Extremity Strength Assessment Bilaterally Impaired Hip 3/5 in flexion Knee 3+/5 in extension Comments Strength Comments Difficulty with fine hand coordination or repetitive quick movements of fingers michela . Motion Picture Actor strength moderate bilaterally. Left hand ability to oppose thumb to middle finger at max. Pt is left dominant. LE strength generally a grade 3 with tremorous movement. Unable to perform repetitive quick movements at ankles. Coordination Assessment Gross Coordination Gross Coordination Impaired Sensation Assessment Comments Sensation Comments Pt denies n&t in UEs. Other Assessments Other Other Assessments O2 95 BP in sitting 113/70, pulse 86 M7 PT-IP Assessment and Plan Start: 02/27/19 15:35 Freq: NEEDED Status: Active Protocol: Document 02/28/19 14:48 NFW (Rec: 02/28/19 15:29 NFW [id number]) PT Summary Assessment and Plan Potential Rehabilitation Potential Good Status of Condition at Evaluation Evolving Summary Impairments Pain,ROM,Strength,Balance, Coordination,Tone,Cognition, Bed Mobility,Transfers,Gait, Activity Tolerance Assessment Summary Pt s/p C3-7 post fuction and ACDF performed 02/27/19. Pt lethargic during treatment and is revealing weakness issues U&LEs; moves slowly with U&LE; standing balance is poor and requires FWW for assist. Cooperative with treatment but very drowsy. Goals Bed Mobility Goal Independent Transfer Goal Standby Assistance,Front Wheeled Walker Gait Goal Standby Assistance,Front Wheel Walker Gait Distance 200' Other Goals Ability to ascend and descend 2 steps without handrails. Days to Meet Goals 2 Frequency of Treatment Frequency Of Treatment Twice a Day Treatment Plan Physical Therapy Treatment Plan Bed Mobility Training,Transfer Training,Gait Training, Therapeutic Exercise,Balance Retraining,Post Op Education, Coordination Retraining Other Recommendations and Next Treatment Stair climbing Focus Recommendations To Nursing Amount of Assist Needed 1 Person Assist Discharge Recommendations PT Discharge Recommendations Home with Assistance,SNF Rehab Other Discharge Recommendations Pt's goal is to discharge home with but if unable to walk with FWW more than 20' safely may need SNF Rehab prior to going home. Equipment Needed for Home Before FWW Discharge
--- NOTE | 2019-02-28 15:49 | OT.IP.EVAL ---
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) HTN (hypertension) (Acute) Hx of fracture of rib (Acute) Hypothyroidism (Acute) Neck pain (Acute) Perforated bowel (Acute ~2011) Rash (Acute) Sepsis (Acute ~2011) Sleep apnea (Acute) Surgical History (Last Updated 02/26/19 @ 12:17 by Diamond Frausto RN) Hx of appendectomy (Acute ~2011) Hx of cholecystectomy (Acute) Hx of hand surgery (Acute ~2007) Hx of hernia repair (Acute) S/P epidural steroid injection (Acute) Occupational Therapy Inpatient Evaluation/Re-Eval M1 PT/OT-IP Prior Functional Status Start: 02/27/19 15:37 Freq: NEEDED Status: Active Protocol: Document 02/28/19 15:53 CGR (Rec: 02/28/19 16:10 CGR [id number]) Medical Review Prior Functional Status Medical History Reviewed Yes Mobility and Gait Prior to recent surgery patient did not use any assistive devices in ambulation. He reports feeling dizzy whenever he leaned forward. To stand from sitting he reports that he had to lean forward to get his weight over his feet and then stand. His reports that when he attempted stairs he would lose his balance backwards. Activities of Daily Living and IADL's Pt and report independence with bathing/ hygiene. Independent with dressing with the exception of shoes and socks. Would experience dizziness when leaning forward to address his shoes/socks. Social History Household Members spouse Living Arrangements House Number of Floors (Floors) One Floor Number of Stairs To Enter/Railing? 2 steps, no railing to enter whether from front door or garage. 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 His job requires static standing and lifting up to a max of 30 pounds throughout the day. M2 OT-IP Current Condition Start: 02/27/19 15:37 Freq: Status: Active Protocol: Document 02/28/19 15:53 CGR (Rec: 02/28/19 16:10 CGR [id number]) Occupational Therapy Current Condition Current Condition Evaluation Date 02/28/19 Treatment Diagnosis C3-7 ACDF w bone graft, extubated 02/28 Diagnosis Onset Date 02/27/19 Post Operative Precautions Cervical Spine Precautions Soft Collar for Comfort,No Heavy Lifting,Log Roll M3 OT- IP Subjective and Pain Start: 02/27/19 15:37 Freq: Status: Active Protocol: Document 02/28/19 15:53 CGR (Rec: 02/28/19 16:10 CGR [id number]) OT- Subjective Occupational Therapy Visit Type Type Initial Evaluation Visit Start Time 15:33 Visit Stop Time 15:49 Total Visit Minutes 16 OT Pain Assessment Pain When Pain Assessed At Rest Pain Present Pain Present Pain Reported Location low back and neck Intensity 5 Scale Used Numeric (1 - 10) Management Techniques Modification of Treatment, Timing of Activity with Medications M4 OT- IP ADL's Start: 02/27/19 15:37 Freq: Status: Active Protocol: Document 02/28/19 15:53 CGR (Rec: 02/28/19 16:10 CGR [id number]) OT [id number] Comments OT Self-Feeding Comments Not performed at this session. OT ADL-Grooming Comments OT Grooming Comments Pt declined, states he is getting very sleepy after recent medication. OT ADL-Oral Care Comments Oral Care Comments Pt declined, states he is getting very sleepy after recent medication. OT ADL-Dressing General Eval Lower Body Dressing Ability Moderate Assistance Areas Needing Assistance Socks Comments OT Dressing Comments Pt is able to get feet to ankle but has difficulty with hand coordination to perform LB dressing. OT ADL-Toileting Comments OT Toileting Comments Pt with chun. OT ADL-Bathing Comments OT Bathing Comments Pt declined. M5 OT- IP IADL's Start: 02/27/19 15:37 Freq: Status: Active Protocol: Document 02/28/19 15:53 CGR (Rec: 02/28/19 16:10 CGR [email or web address]) OT-Instrumental Activities of Daily Living Deficits IADL Deficits Identified Deficits Home Safety Awareness Awareness of Need for Assistance at Home Good Awareness Ability to Problem Solve Emergency Able to Problem Solve Situations M6 OT- IP Functional Cognition Start: 02/27/19 15:37 Freq: Status: Active Protocol: Document 02/28/19 15:53 CGR (Rec: 02/28/19 16:10 CGR [id number]) Cognitive Factors Limiting Selfcare Function Cognitive Ability Level of Alertness Alert Patient Orientation Name,Age,Birthday,Month,Date, Year,Day of Week,Place, Situation Attention Span Ability Capable of Focused Attention, Unable to Sustain Attention Ability to Follow Commands Able to Follow One Step Commands Memory Description No Deficits Noted Safety Awareness Decreased Recall of Precautions Problem Solving Ability No deficits Noted Cognitive Comments Cognitive Assessment Comments Pt is likley at baseline and sleepy from pain medication on this date. OT- Vision and Hearing OT- Hearing Assessment OT- Hearing Assessment WFL OT- Vision Assessment Visual Acuity Glasses All The Time Visual Attentiveness WFL Occular Pursuits WFL Visual Convergence WFL Visual Carrasco WFL Vision Assessment Comments Pt has bifocals M7 OT- IP Mobility and Balance Start: 02/27/19 15:37 Freq: Status: Active Protocol: Document 02/28/19 15:53 CGR (Rec: 02/28/19 16:10 CGR [email or web address]) OT- Bed Mobility Assessment Rolling Type of Rolling Log Rolling Level of Assistance Standby Assistance Supine to Sit Supine to Sit Assist Contact Guard Assistance Sit to Supine Sit to Supine Assist Contact Guard Assistance Scooting Scooting to Edge of Bed Independent Scooting Up and Down in Bed Independent OT-Transfer Assessment Sit to and From Stand Sit to and from Stand Contact Guard Assistance Transfers Transfer Ability Contact Guard Assistance Technique Transfer Destination Bed Transfer Technique Stand Step Pivot Devices Transfer Assistive Devices Bed Rail,Gait Belt Comments Mobility Comments Side steps to HOB. Pt declined transfer to chair. OT- Gait Assessment Comments Gait Ability Comments Not performed OT- Balance Assessment Sitting Balance and Reactions Static Sitting Balance Ability Good Dynamic Sitting Balance Ability Fair M8 OT- IP Objective Assessments Start: 02/27/19 15:37 Freq: Status: Active Protocol: Document 02/28/19 15:53 CGR (Rec: 02/28/19 16:10 CGR [email or web address]) OT Gross Range of Motion Upper Extremity Range of Motion Assessment Within Functional Limits OT Strength Upper Extremity Strength Assessment Within Functional Limits OT- Coordination Assessment Upper Extremity Finger to Nose Test Bilateral UE Impaired Finger Tapping Test Bilateral UE Impaired Comments Coordination Comments Pt with noted poor coordination that impaired his abiltiy to perform LB dressing. Pt declined other fine motor tasks but is displaying shakyness with movement and states that some of the shakyness is new. Will continue to follow. OT-Muscle Tone Assessment Muscle Tone WNL Yes OT Sensation Assessment Comments Summary Comments No deficits noted Edema Edema Absent M9 OT- IP Assessment and Plan Start: 02/27/19 15:37 Freq: Status: Active Protocol: Document 02/28/19 15:53 CGR (Rec: 02/28/19 16:10 CGR [email or web address]) OT Summary Assessment and Plan Potential Rehabilitation Potential Good Analytic Complexity at Evaluation Moderate Summary OT Impairments Pain,Range of Motion,Strength, Balance,Coordination, Functional Cognition, Functional Mobility,Self- Feeding,Grooming,Dressing, Toileting,Bathing,Toilet Transfers,Shower Transfers Progress Towards Goals Slow Progress due to Medical Issues Assessment Summary Pt presents as a mod complexity evaluation s/p cervical sx. Pt is drowsy throughout OT eval and likely will be more clear cognitively tomorrow. Pt with fair balance and bed mobility but unsteady with standing. Pt with poor UE coordination that is impacting his ability to perform ADLs. Pt will benefit from continued OT services. At this time recommendation for discharge is home with 24 hour assist and out patient therapy. Will continue to follow. Goals Self-Feeding Goal Independent Grooming Goal Independent Dressing Goal Independent Toileting Goal Independent Bathing Goal Independent Toilet Transfer Goal Independent Shower Transfer Goal Independent Days to Meet Goals 10 Frequency of Treatment Frequency Of Treatment Once a Day Treatment Plan OT Treatment Plan ADL Training,Functional Cognition Training,Functional Mobility,Patient/Family Education,Discharge Planning Discharge Recommendations OT Discharge Recommendations Home with 24/7 Assist Home Equipment Needs shower chair, grab bars, mobility aid per P.T. recommendation.
[2019-02-28] MEDS: HYDROCODONE/ACET 5/325 TABLET 2 TAB PO (21:04)
[2019-02-28] MEDS: SENNOSIDES 8.6 MG TABLET 17.2 MG PO (21:04)
[2019-02-28] MEDS: GABAPENTIN 300 MG CAPSULE PO (21:04)
--- NOTE | 2019-02-28 22:50 | PC.NURSE ---
Patient is currently on High Flow NC 2L at 94% while awake. Earlier when sleeping patient would desat to 82-84% and BiPap was applied. Complaints of pain neck/lower back, managed with [place]. Occasional cough, nonproductive. Makes gurgling noise when swallowing so meds were crushed and given with pudding. PIPE RECOVERY SPECIALIST notified and swallow eval has been ordered for tomorrow. Bed alarm is on, call light within reach.
[2019-03-01] VITALS (23 sets, daily range): BP systolic 109–146; BP diastolic 54–93; PULSE 91–111; RESP 12–27; TEMP 31–37.3; O2SAT 88–99
--- NOTE | 2019-03-01 00:19 | PC.NURSE ---
Addendum entered by Tobin Woods R.N. 03/01/19 05:22: 0420: Assisted to reposition. Pt tolerating BiPaP. Addendum entered by Tobin Woods R.N. 03/01/19 01:02: 0100: Assisted to turn and reposition. RT at bedside to assess pt. Recently medicated for pain per his request. Addendum entered by Tobin Woods R.N. 03/01/19 00:59: 0045: Pt irritated with Bipap mask. RT notified. Pt back on HHNC until RT here to re-assess. Original Note: Bale Piler Note: 2350: Pt having shortness of breath on 2L/HFNC. Breath sounds diminished. RT notified and at bedside to assess pt. Pt placed back on BiPAP. Assisted to repostion. IVs in rt wrist and Lt AC in place. NS infusing at 125cc/hr in rt wrist IV. Mcdaniel catheter patent, with clear yellow urine. Soft cervical collar in place, and anterior and posterior dressings intact; small amt drainage to posterior dressing.
[2019-03-01] MEDS: SODIUM CHLORIDE 0.9% 1,000 ML 125 ML IV (00:36)
[2019-03-01] MEDS: HYDROCODONE/ACET 5/325 TABLET 2 TAB PO (00:36)
[2019-03-01] MEDS: hydrOXYzine pamoate 25 MG CAPSULE PO (08:28)
[2019-03-01] MEDS: HYDROCODONE/ACET 5/325 TABLET 1 TAB PO (08:28)
[2019-03-01] MEDS: DOCUSATE 100 MG CAPSULE PO (08:30)
[2019-03-01] MEDS: LEVOTHYROXINE 75 MCG TABLET PO (08:30)
[2019-03-01] MEDS: LISINOPRIL 20 MG TABLET PO (08:30)
[2019-03-01] MEDS: LORazepam 2 MG/ML INJ 1 MG IV ×3 (08:30→21:30)
--- NOTE | 2019-03-01 08:35 | PM.PN.1 ---
Subjective Subjective Date Patient Seen: 03/01/19 Time Patient Seen: 08:35 Interval history: Edouard Jung is a 63-year-old male with past medical history of hypertension and hypothyroidism who is postoperative day 1 after C3-C7 anterior discectomy and posterior fusion who needed to be intubated in the PACU as the patient was extremely somnolent. Blood gas was checked and his pCO2 was 130. He was extubated the following morning. He intermittently desats while napping and requires bipap intermittently. This morning he was complaining of shaking, he was tremulous and had tongue fasciculations. He was also mildly tachycardic. He continues to endorse only drinking a few shots of whiskey the night before surgery. He was started on CIWA protocol and given ativan with some improvement. He further reports cough after eating. Speech therapy ordered. Exam Vital Signs (past 8 hours): - 03/01/19 04:00 03/01/19 07:06 03/01/19 07:51 Temperature 98.0 F 98.2 F Pulse Rate 94 H 103 H Respiratory Rate 17 16 14 Blood Pressure 114/69 146/80 H Pulse Oximetry 95 90 L 94 Fraction of Inspired Oxygen 40 Oxygen Delivery Method High Flow Nasal Cannula Oxygen Flow Rate 5 Narrative Exam Narrative: GENERAL APPEARANCE: Well developed, well nourished, alert, falls asleep quickly SKIN: Inspection of the skin reveals no rashes, ulcerations or petechiae. HEENT: Pupils pinpoint and minimally reactive, no scleral icterus, oral mucosa moist. NECK: Supple and symmetric. Soft C-collar is in place, dressings clear dry and intact after surgical interventions. Trachea midline. CHEST: Normal AP diameter and normal contour without any kyphoscoliosis. LUNGS: Auscultation of the lungs revealed no wheezes, rhonchi, or rales. There is poor air movement. CARDIOVASCULAR: There was a regular rate and rhythm without any murmurs, gallops, rubs. Peripheral pulses were 2+ and symmetric. ABDOMEN: Soft and nontender with normal bowel sounds. No ascites was noted. There is a dressing in left lower quadrant that is clear dry and intact. MUSCULOSKELETAL: There was no effusions noted. Muscle strength and tone were normal. EXTREMITIES: No cyanosis, clubbing or edema. NEUROLOGIC: Alert, + tremulous and tongue fasciculations. Objective Labs Result Diagrams: 03/01/19 08:23 03/01/19 08:23 Assessment & Plan Assessment & Plan narrative: Edouard Govea is a 63-year-old male with past medical history of hypertension hypothyroidism who is now in ICU after C3-C7 posterior fusion and ACDF with cages due to acute hypercarbic respiratory failure. There is likely a chronic component given the 's history over the last couple of weeks. Medicine was consulted for assistance with ventilator management. He was extubated to bipap and intermittently requires bipap while napping. He also likely has a mucous plug in his LLL now. He is now being treated for alcohol withdrawal as well. 1. Acute hypercarbic respiratory failure, resolved -there is likely a chronic hypercarbic respiratory failure given the patient's history and an elevated CO2 to 38. Etiology is likely multifactorial including obstructive sleep apnea, probable COPD, recent rib fracture resulting in hypoventilation, recent opiate use, followed by surgical intervention with additional narcotics. Chest x-ray initially did not show any evidence of active pneumonia. He does have a LLL infiltrate on imaging which is persistent and some increased secretions however no other evidence of pneumonia. Favor a mucous plug in his LLL at this time. Further consider aspiration. -appreciate respiratory assistance -he will need outpatient sleep study / CONSUELO evaluation and outpatient PFTs for possible COPD -smoking cessation. -chest PT and encourage cough -incentive spirometry when not on bipap -cough reported after meals, will assess with speech therapy evaluation. -try and limit narcotics / benzodiazepines, however this will be difficult after surgery and now with withdrawal. 2. EtOH withdrawal - mild symptoms with tremor and fasciculations today that improved with ativan. - continue ativan per CIWA protocol. - patient continues to endorse only drinking 2 beers the night prior to surgery. 3. Transaminitis, acute, improving -could be secondary to acute alcohol use given AST to ALT ratio of greater than 2:1 and his now apparent withdrawal. His T bili is also elevated in this could be indicative of alcoholic hepatitis. This could also be due to ischemic injury, however this seems less likely at this time given withdrawal. -abdominal ultrasound showing a lobular echotexture, otherwise unremarkable. Incidental renal cyst noted. -continue to follow hepatic function 4. HTN, chronic, stable - reports he has stopped taking his medication for the past week because he was confused about preoperative surgical instructions. - continue home lisinopril 20 mg 5. Hypothyroidism, chronic, stable -continue home levothyroxine Code: full, surrogate decision maker is the patient's . Medicine will continue to follow this patient given withdrawal. Continue PT/OT therapies.
--- NOTE | 2019-03-01 08:46 | PM.PNPO.1 ---
Subjective Subjective Date Patient Seen: 03/01/19 Time Patient Seen: 08:46 Interval history: He is doing better yesterday but had a rough night. This morning he began having shakes and tremors in his arms. This did improve a little bit with Ativan. Exam Vital Signs (past 8 hours): - 03/01/19 04:00 03/01/19 07:06 03/01/19 07:51 Temperature 98.0 F 98.2 F Pulse Rate 94 H 103 H Respiratory Rate 17 16 14 Blood Pressure 114/69 146/80 H Pulse Oximetry 95 90 L 94 Fraction of Inspired Oxygen 40 Oxygen Delivery Method High Flow Nasal Cannula Oxygen Flow Rate 5 Const Orientation: alert and oriented x3 Back/Spine/Pelvis Other: CDI. 5/5 motor both upper extremities except for unchanged 3/5 bilateral gameplay programmer and 1/5 left intrinsic Objective Labs Result Diagrams: 02/28/19 04:30 02/28/19 04:30 Assessment & Plan Post-op Postoperative Procedures: Procedures Operation Date: 02/27/19 07:45 Actual Procedures Side Surgeon p C3-7 anterior discectomy and anterior/posterior instrumentated fusion w/ bone graft Joo Osullivan MD stable after anterior-posterior 4 level cervical fusion. Most likely showing some early alcohol withdrawal and is now on the CIWA protocol. Mobilize today with physical therapy and get out of bed and walking.
[2019-03-01] MEDS: NICOTINE 21 MG PATCH TOP (08:52)
[2019-03-01] MEDS: FAMOTIDINE 20 MG/50 ML PIGGYBACK 200 MG IV ×2 (09:13→22:29)
[2019-03-01 09:28] LABS: Add Manual Diff / Slide Review NO; Basophils Absolute Auto 0 /uL (0-100); Eosinophils Absolute Auto 0 /uL (0-450); Hematocrit 46.3 % (41-53); Hemoglobin 15.3 g/dL (13.5-17.5); Lymphocytes Absolute Auto 1000 /uL (1100-4500); Lymphocytes Percent Auto 9.2 % (25-40); Mean Corpuscular HGB Conc 33.1 % (30-36); Mean Corpuscular Hemoglobin 32.6 PG (26-34); Mean Corpuscular Volume 98.4 fL (80-100); Monocytes Absolute Auto 700 /uL (0-900); Monocytes Percent Auto 7.1 % (3-14); Neutrophils Absolute Auto 8800 /uL (1500-7000); Neutrophils Percent Auto 83.7 % (50-75); Platelet Count 167 X10^3/uL (150-400); Red Cell Distribution Width 14.6 % (11.6-14.8); White Blood Cell Count 10.5 X10^3/uL (4.5-11.0)
[2019-03-01 09:39] LABS: Alanine Aminotransferase 57 IU/L (<50); Albumin 3.8 g/dL (3.5-5.0); Albumin Globulin Ratio 1.3 (1.0-2.8); Alkaline Phosphatase 61 U/L (38-126); Aspartate Aminotransferase 46 IU/L (17-59); BUN Creatinine Ratio 34.3 (6-22); Bilirubin Total 0.7 mg/dL (0.2-1.3); Bilirubin Unconjugated 0.5 mg/dL (0.0-1.1); Blood Urea Nitrogen 24 mg/dL (9-20); Calcium 9.3 mg/dL (8.4-10.2); Carbon Dioxide 38 mmol/L (22-32); Chloride 101 mmol/L (98-107); Estimated Glomerular Filt Rate > 60.0 mL/min (>60); Globulin 2.9 g/dL (1.7-4.1); Glucose 73 mg/dL (80-110); HEMOLYSIS < 15 (0-50); Potassium 4.3 mmol/L (3.4-5.1); Sodium 142 mmol/L (137-145); Total Protein 6.7 g/dL (6.3-8.2)
--- NOTE | 2019-03-01 10:17 | DI.RAD.S_ITS ---
PROCEDURE: XR CHEST 1V INDICATIONS: worsening respiratory status TECHNIQUE: One view of the chest was acquired. COMPARISON: [facility], CR, XR CHEST 1V, 02/28/2019, 7:51. FINDINGS: Surgical changes and devices: Cervical spine fixation hardware can be seen. Lungs and pleura: There is poorly defined opacity seen within the left costophrenic angle. No pneumothorax is seen. The right lung appears clear. Mediastinum: Mediastinal contours appear normal. Heart size is normal. Atherosclerotic calcification of the aortic arch is noted. Bones and chest wall: No suspicious bony lesions. Age-appropriate bony degenerative changes are seen. Prior distal right clavicle fracture. Overlying soft tissues appear unremarkable. IMPRESSION: Poorly defined opacity within the left costophrenic angle. Differential diagnosis includes mild infiltrate and pleural effusion with atelectasis. Dictated by: Juan Torres M.D. on 03/01/2019 at 9:37 Approved by: Juan Torres M.D. on 03/01/2019 at 9:38
--- NOTE | 2019-03-01 10:27 | PT-IP ANOTE ---
Contacted MISSILE TRACKING TECHNICIAN for appropriateness of PT at this time. Pt with RT, on BiPAP. Nursing requested a later visit today. Will follow up in the afternoon.
--- NOTE | 2019-03-01 15:08 | PC.NURSE ---
pt found to be struggling this am both- increased heart rate and increased resp rate - pt recognized this RN from yesterday and understood my explanations and relaxed after we got him up to chair for am meal- he took am meds and ciwa started - he did receive 1mg iv lorazepam along with po hydrocodone x 1 for c/o pain- he shortly there-after became lethargic and unable to take deep breath- replaced pt back on bipap- initially 50% then decreased to 40% and finally down to 30%- he remained on bipap with good spo2 and heart rate in the 90's for approx 4-5 hours - awake now and tolerating o2 @ 2l hfnc and taking po fair- will use bipap during sleep. dressings to ant/posterior neck dry and intact as is left iliac . soft collar in place and chun patent
--- NOTE | 2019-03-01 15:36 | PT.IPTN ---
Current Diagnoses Other spondylosis with myelopathy, cervical region (02/27/19) Spinal stenosis, cervical region (02/27/19) Surgery Performed Operation Date: 02/27/19 07:45 Actual Procedures p C3-7 anterior discectomy and anterior/posterior instrumentated fusion w/ bone graft - Joo Osullivan MD Physical Therapy Treatment Note M2 PT-IP Current Condition Start: 02/27/19 15:35 Freq: NEEDED Status: Active Protocol: Document 02/28/19 14:48 NFW (Rec: 02/28/19 15:29 NFW [id number]) Physical Therapy Current Condition Current Condition Evaluation Date 02/28/19 Treatment Diagnosis Cervical stenosis with myelopathy, s/p C3-8 post fusion and ACDF Precautions Cervical Spine Precautions Soft Collar for Comfort,No Heavy Lifting,Log Roll Brace Soft collar Weight Bearing Status Weight Bearing Status Full Weight Bearing M3 PT-IP Subjective Start: 02/27/19 15:35 Freq: NEEDED Status: Active Protocol: Document 03/01/19 15:36 CLB (Rec: 03/01/19 16:13 CLB [id number]) Subjective Physical Therapy Visit Type Type Treatment Note Visit Start Time 15:36 Visit Stop Time 15:54 Total Visit Minutes 18 Number of KETTLE GIRL Visits 1 Physical Therapy Visit Comments Patient Comments Pt states pain is 8/10 but will try to walk. Therapy Pain Assessment Pain When Pain Assessed At Rest Pain Present Pain Present Pain Reported Location low back and neck Intensity 8 Scale Used Numeric (1 - 10) Pain Behaviors Facial Grimacing,Moaning, Wincing Pain Management Techniques Modification of Treatment, Timing of Activity with Medications M4 PT-IP Mobility and Gait Start: 02/27/19 15:35 Freq: NEEDED Status: Active Protocol: Document 03/01/19 15:36 CLB (Rec: 03/01/19 16:13 CLB [id number]) PT-Transfer Assessment Sit to and From Stand Sit to and from Stand Moderate Assistance,1 Person Assistance,Use of Upper Extremities Equipment Transfer Assistive Device Gait Belt,Front Wheeled Walker Orthotic/Prosthetic Devices or Brace: No Comments Mobility Comments Pt unable to come to full stand on first attempt due to weakness and shaking in legs. Pt sat down, took a quick break then reattempted to stand, Pt able to stand on second attempt with Mod A requiring cues for foot and hand position. Pt stood ~30 seconds with cues to bring hips forward to improve posture but pt knees buckling and needed to sit down. Pt unable to take steps. Left pt in chair with all needs within reach and present. Gait Assessment Comments Gait Comments Unable M5 PT-IP Objective Assessments Start: 02/27/19 15:35 Freq: NEEDED Status: Active Protocol: Document 02/28/19 14:48 NFW (Rec: 02/28/19 15:29 NFW [id number]) Orientation Orientation/Cognition Level of Alertness Lethargic Orientation Name,Place,Situation Language Function Ability Garbled Speech Safety Awareness Decreased Safety Awareness Gross Range of Motion Upper Extremity ROM Assessment Bilaterally Impaired Impairments AROM against gravity in flexion <90 degrees; abduction ~60 degrees with right weaker . AAROM against gravity in flexion to ~120 degrees; abduction to 90 degrees with right weaker. Lower Extremity ROM Impairments ROM LEs functional. Strength Upper Extremity Strength Assessment Bilaterally Impaired Shoulder 3/5 Elbow 4/5 Wrist 4/5 Hand 3/5 Lower Extremity Strength Assessment Bilaterally Impaired Hip 3/5 in flexion Knee 3+/5 in extension Comments Strength Comments Difficulty with fine hand coordination or repetitive quick movements of fingers michela . Vp Production strength moderate bilaterally. Left hand ability to oppose thumb to middle finger at max. Pt is left dominant. LE strength generally a grade 3 with tremorous movement. Unable to perform repetitive quick movements at ankles. Coordination Assessment Gross Coordination Gross Coordination Impaired Sensation Assessment Comments Sensation Comments Pt denies n&t in UEs. Other Assessments Other Other Assessments O2 95 BP in sitting 113/70, pulse 86 M7 PT-IP Assessment and Plan Start: 02/27/19 15:35 Freq: NEEDED Status: Active Protocol: Document 03/01/19 15:36 CLB (Rec: 03/01/19 16:13 CLB [id number]) PT Summary Assessment and Plan Summary Impairments Pain,ROM,Strength,Balance, Coordination,Tone,Cognition, Bed Mobility,Transfers,Gait, Activity Tolerance Assessment Summary Pt reports 8/10 pain and was unable to ambulate due to weakness and shaking in legs. Pt able to stand for ~30 seconds before needing to sit down. Pt may require SNF rehab to improve activity tolerance , strength and functional mobility. Goals Bed Mobility Goal Independent Transfer Goal Standby Assistance,Front Wheeled Walker Gait Goal Standby Assistance,Front Wheel Walker Gait Distance 200' Other Goals Ability to ascend and descend 2 steps without handrails. Days to Meet Goals 2 Frequency of Treatment Frequency Of Treatment Twice a Day Treatment Plan Physical Therapy Treatment Plan Bed Mobility Training,Transfer Training,Gait Training, Therapeutic Exercise,Balance Retraining,Post Op Education, Coordination Retraining Other Recommendations and Next Treatment ambulate as able, transfers Focus and bed mobilty. Recommendations To Nursing Amount of Assist Needed 1 Person Assist Discharge Recommendations PT Discharge Recommendations Home with Assistance,SNF Rehab Other Discharge Recommendations Pt's goal is to discharge home with but if unable to walk with FWW more than 20' safely may need SNF Rehab prior to going home. Equipment Needed for Home Before FWW Discharge
--- NOTE | 2019-03-01 15:51 | CM.DPC ---
DCP continued: EMR reviewed. During Am rounds CM/Rn was notified that patient was going through alcohol withdraw and was on CIWA. Dr. Jerome agreed that patient most likely will need SNF once out of alcohol withdraw. CM/Rn attempted to discuss SNF or HH options with patients but was unable to reach her by phone. PT evaluation stated patient is ok for home with 24/7 Assistance but would more then likely need SNF placement. Patient continues to need BIpap while sleeping. CM department will follow up tomorrow 03/02/19 to determine patient and family choice for possible SNF placement. Rebecca Casillas RN.
--- NOTE | 2019-03-01 16:51 | PC.NURSE ---
Addendum entered by Chana Donaldson R.N. 03/01/19 22:15: Pt repositioned to let side, continues at 92% on Bipap, comfortably sleeping after 1mg IV Ativan given for hallucinations and CIWA of 9. Continues to have no lung sounds in left lobes. Addendum entered by Chana Donaldson R.N. 03/01/19 19:25: NPO for time being d/t risk of aspiration. Dr Jerome ok with this. Addendum entered by Chana Donaldson R.N. 03/01/19 18:32: CIWA increased from 4 to 9. Pt states the woman with the dark hair in the corner has a gun. No one in the room but the nurse at this time. Pt reoriented, accepted fact that no one was had a gun and that he was safe. Fell back asleep. Addendum entered by Chana Donaldson R.N. 03/01/19 18:24: Pt satting 95%, BiPAP 35% FiO2, sleeping comfortably. HR [address] ST. BP 137/84. Addendum entered by Chana Donaldson R.N. 03/01/19 17:40: Spoke with MD pimentel patient plan in ICU. RN Concerns present for respiratory status, no lung sounds heard throughout left lobes, minimal movement of air right lung. RT at bedside using percusser, neb treatment, nasotracheal suctioning, etc while on BiPap 35% 20/8. Pt remains lethargic, appropriate but very sleepy. Using IS when instructed to, barely lifting volumes of 250. No strength to move sputum independently with weak cough. Pt 95% post NTS. Thick white sputum resulting. Will cont to monitor. Addendum entered by Chana Donaldson R.N. 03/01/19 17:30: Pt on BiPAP, sats 90, on 35% FiO2. Very lethargic, RR 17. Will cont to monitor. Plan for nasotracheal suctioning by RT now. Addendum entered by Chana Donaldson R.N. 03/01/19 17:02: CO2 71 on ABG. Placed back on Bipap. Pt in bed. CIWA 4. Original Note: Pt sitting upright in chair. Worked with PT at change of shift. Desatted to 87% with one sip of water- coughing, difficulty breathing. Aggressive chest PT given, encouraging pt's weak cough. Coached slow breathing through nose, exhaling orally. MD notified. ABG completed now. Will reassess and place back on BiPAP if necesary. Aggressive pulmonary toiletry needed- using IS but very inadequate volume produced. Pt says breathing is labored. Sats 92% on 2LNC after chest percussion PT by RN. LUE/Hand noted to be swollen, non pitting, larger than RUE. Red. Will cont to monitor and elevated above heart. Mcdaniel catheter intact, repositioned with leg strap to decrease train on tubing and meatus. MD aware of all. Family and educated on need for pulmonary toiletry- verbalized understanding.
[2019-03-01 17:08] LABS: HCO3 ABG 37 mmol/L (22-26); PCO2 ABG 71.1 mmHg (35-45); PO2 ABG 67 mmHg (80-100); pH ABG 7.32 (7.35-7.45)
[2019-03-01 17:09] LABS: Fractionated Inspired Oxygen 35; Oxygen Saturation ABG 90 % (95-100); TCO2 ABG 39 mmol/L (21-31)
[2019-03-01] MEDS: ALBUTEROL/IPRATROPIUM 3 ML AMPUL INH ×2 (17:34→22:39)
[2019-03-02] VITALS (31 sets, daily range): BP systolic 77–145; BP diastolic 52–96; PULSE 74–124; RESP 10–25; TEMP 31–37.6; O2SAT 90–99; BMI 21.9
--- NOTE | 2019-03-02 01:01 | PC.NURSE ---
Addendum entered by Tobin Woods R.N. 03/02/19 06:57: 0655: here, sitting at bedside. Addendum entered by Tobin Woods R.N. 03/02/19 06:34: 0610: ABG done by RT. XAVIER Fischer notified. Pt easily agitated, attempting to get up out of bed. [id number]: Medicated with Ativan 1mg IV for agitation (this dose ok'd by XAVIER Puentes) Addendum entered by Tobin Woods R.N. 03/02/19 04:59: 0300: Sleeping intermittently. Occasionally attempts to pull BiPAP mask off. 0430: Attempting to get out of bed. Re-oriented to place and time. Turned and repositioned. Addendum entered by Tobin Woods R.N. 03/02/19 01:56: 0155: Pt awake, attempting to pull off BiPAP mask. Pt states he is having pain. Medicated for pain with Dilaudid 0.5mg IV. Original Note: Information Systems Security Specialist Note: 0000: Resting on lt side. Continues on BiPAP with settings of 20/8, FIO2 35%. IVs in place in rt hand and lt AC. Chun catheter patent, with small amt clear cassia urine. SCDs on. Vital signs stable. Pt opens eyes briefly, no attempt to speak. 0045: Turned and repositioned to right side. Ifeoma care given, chun cath care given.
[2019-03-02] MEDS: HYDROMORPHONE 0.5 MG INJ IV ×2 (01:47→18:49)
[2019-03-02] MEDS: ALBUTEROL/IPRATROPIUM 3 ML AMPUL INH ×6 (02:21→23:11)
[2019-03-02 04:59] LABS: Add Manual Diff / Slide Review NO; Basophils Absolute Auto 0 /uL (0-100); Basophils Percent Auto 0.1 % (0-2); Eosinophils Absolute Auto 0 /uL (0-450); Hematocrit 42.1 % (41-53); Hemoglobin 14.1 g/dL (13.5-17.5); Lymphocytes Absolute Auto 900 /uL (1100-4500); Lymphocytes Percent Auto 8.8 % (25-40); Mean Corpuscular HGB Conc 33.6 % (30-36); Mean Corpuscular Hemoglobin 32.6 PG (26-34); Mean Corpuscular Volume 96.8 fL (80-100); Monocytes Absolute Auto 900 /uL (0-900); Monocytes Percent Auto 8.9 % (3-14); Neutrophils Absolute Auto 8500 /uL (1500-7000); Neutrophils Percent Auto 82.2 % (50-75); Platelet Count 148 X10^3/uL (150-400); Red Blood Cell Count 4.35 X10^6/uL (4.5-5.9); Red Cell Distribution Width 14.1 % (11.6-14.8); White Blood Cell Count 10.4 X10^3/uL (4.5-11.0)
[2019-03-02 05:09] LABS: Alanine Aminotransferase 41 IU/L (<50); Albumin 3.1 g/dL (3.5-5.0); Albumin Globulin Ratio 1.1 (1.0-2.8); Alkaline Phosphatase 56 U/L (38-126); Aspartate Aminotransferase 33 IU/L (17-59); Bilirubin Total 1.5 mg/dL (0.2-1.3); Bilirubin Unconjugated 1.3 mg/dL (0.0-1.1); Blood Urea Nitrogen 26 mg/dL (9-20); Calcium 8.9 mg/dL (8.4-10.2); Carbon Dioxide 34 mmol/L (22-32); Chloride 98 mmol/L (98-107); Estimated Glomerular Filt Rate > 60.0 mL/min (>60); Globulin 2.7 g/dL (1.7-4.1); Glucose 72 mg/dL (80-110); HEMOLYSIS < 15 (0-50); Potassium 3.7 mmol/L (3.4-5.1); Sodium 138 mmol/L (137-145); Total Protein 5.8 g/dL (6.3-8.2)
[2019-03-02 05:56] LABS: HCO3 ABG 36 mmol/L (22-26); Oxygen Saturation ABG 93 % (95-100); PCO2 ABG 63.5 mmHg (35-45); PO2 ABG 71 mmHg (80-100); TCO2 ABG 38 mmol/L (21-31); pH ABG 7.36 (7.35-7.45)
[2019-03-02 05:57] LABS: Fractionated Inspired Oxygen 0.35
[2019-03-02] MEDS: LORazepam 2 MG/ML INJ 1 MG IV (06:33)
--- NOTE | 2019-03-02 07:52 | P.PN_ITS ---
Subjective Subjective Date Patient Seen: 03/02/19 Time Patient Seen: 07:52 Interval history: He is doing fairly poorly. He had been up and standing for transfers to chair yesterday. However, he has gradually been getting worse with his breathing. He is now on BiPAP at 35% and only has a 92% oxygen saturation. Was responsive earlier but fairly sedated now, although he has not been given much sedation. Exam Vital Signs (past 8 hours): - 03/02/19 00:00 03/02/19 01:00 03/02/19 02:00 Temperature Pulse Rate 99 H 101 H 100 H Respiratory Rate 18 20 14 Blood Pressure 115/73 112/60 114/64 Pulse Oximetry 91 92 91 03/02/19 02:22 03/02/19 03:00 03/02/19 04:00 Temperature 99.7 F H Pulse Rate 101 H 104 H Respiratory Rate 10 L 16 Blood Pressure 114/64 116/59 L 127/63 Pulse Oximetry 90 L 91 03/02/19 05:09 03/02/19 06:00 Temperature Pulse Rate 101 H 110 H Respiratory Rate 25 H 21 Blood Pressure 124/75 132/96 H Pulse Oximetry 90 L 92 Fraction of Inspired Oxygen 35 Oxygen Delivery Method BiPAP Oxygen Flow Rate 86 Const Orientation: obtunded Back/Spine/Pelvis Other: CDI Objective Imaging Chest x-ray: My impression: Chest x-ray from yesterday shows opacities in the left lung Labs Result Diagrams: 03/02/19 04:30 03/02/19 04:30 Labs: Laboratory Results - last 24 hr 03/01/19 03/01/19 03/01/19 08:23 08:23 16:45 WBC 10.5 RBC 4.70 Hgb 15.3 Hct 46.3 MCV 98.4 D MCH 32.6 MCHC 33.1 RDW 14.6 Plt Count 167 Neut % (Auto) 83.7 H Lymph % (Auto) 9.2 L [place] % (Auto) 7.1 Eos % (Auto) 0.0 L Baso % (Auto) 0.0 Neut # (Auto) 8800 H Lymph # (Auto) 1000 L [place] # (Auto) 700 Eos # (Auto) 0 Baso # (Auto) 0 ABG pH 7.32 L ABG pCO2 71.1 H* ABG pO2 67 L ABG HCO3 37 H ABG Total CO2 39 H ABG O2 Saturation 90 L ABG Base Excess 10.0 H FiO2 35 Sodium 142 Potassium 4.3 Chloride 101 Carbon Dioxide 38 H BUN 24 H Creatinine 0.70 Estimated GFR > 60.0 BUN/Creatinine Ratio 34.3 H Glucose 73 L Calcium 9.3 Total Bilirubin 0.7 Conjugated Bilirubin 0.0 Unconjugated Bilirubin 0.5 AST 46 ALT 57 H Alkaline Phosphatase 61 Total Protein 6.7 Albumin 3.8 Globulin 2.9 Albumin/Globulin Ratio 1.3 03/02/19 03/02/19 03/02/19 04:30 04:30 05:39 WBC 10.4 RBC 4.35 L Hgb 14.1 Hct 42.1 MCV 96.8 MCH 32.6 MCHC 33.6 RDW 14.1 Plt Count 148 L Neut % (Auto) 82.2 H Lymph % (Auto) 8.8 L [place] % (Auto) 8.9 Eos % (Auto) 0.0 L Baso % (Auto) 0.1 Neut # (Auto) 8500 H Lymph # (Auto) 900 L [place] # (Auto) 900 Eos # (Auto) 0 Baso # (Auto) 0 ABG pH 7.36 ABG pCO2 63.5 H* ABG pO2 71 L ABG HCO3 36 H ABG Total CO2 38 H ABG O2 Saturation 93 L ABG Base Excess 10.0 H FiO2 0.35 Sodium 138 Potassium 3.7 Chloride 98 Carbon Dioxide 34 H BUN 26 H Creatinine 0.50 L Estimated GFR > 60.0 BUN/Creatinine Ratio 52.0 H Glucose 72 L Calcium 8.9 Total Bilirubin 1.5 H Conjugated Bilirubin 0.0 Unconjugated Bilirubin 1.3 H AST 33 ALT 41 Alkaline Phosphatase 56 Total Protein 5.8 L Albumin 3.1 L Globulin 2.7 Albumin/Globulin Ratio 1.1 Assessment & Plan Post-op Postoperative Procedures: Procedures Operation Date: 02/27/19 07:45 Actual Procedures Side Surgeon p C3-7 anterior discectomy and anterior/posterior instrumentated fusion w/ bone graft Joo Osullivan MD I've discussed his care with Dr. Lucas. Most likely he is going to require re- intubation at this point. His wounds are dry and his neck is soft. I think it's okay to start anticoagulation at this point. Continue with ICU care.
--- NOTE | 2019-03-02 08:26 | OT.IP.TRT ---
Current Diagnoses Other spondylosis with myelopathy, cervical region (02/27/19) Spinal stenosis, cervical region (02/27/19) Surgery Performed Operation Date: 02/27/19 07:45 Actual Procedures p C3-7 anterior discectomy and anterior/posterior instrumentated fusion w/ bone graft - Joo Osullivan MD Occupational Therapy Treatment Note M2 OT-IP Current Condition Start: 02/27/19 15:37 Freq: Status: Active Protocol: Document 02/28/19 15:53 CGR (Rec: 02/28/19 16:10 CGR [id number]) Occupational Therapy Current Condition Current Condition Evaluation Date 02/28/19 Treatment Diagnosis C3-7 ACDF w bone graft, extubated 02/28 Diagnosis Onset Date 02/27/19 Post Operative Precautions Cervical Spine Precautions Soft Collar for Comfort,No Heavy Lifting,Log Roll M3 OT- IP Subjective and Pain Start: 02/27/19 15:37 Freq: Status: Active Protocol: Document 03/02/19 08:25 CCC (Rec: 03/02/19 08:26 CCC [id number]) OT- Subjective Occupational Therapy Visit Type Type Patient Unavailable Notes Pt on HOLD per nursing this AM, to double check on the pt in the PM.
--- NOTE | 2019-03-02 08:31 | PT-IP ANOTE ---
Hold this AM per IGNACIO Espinoza. Will check back on pt this afternoon.
--- NOTE | 2019-03-02 09:13 | DI.RAD.S_ITS ---
PROCEDURE: XR CHEST 1V INDICATIONS: hypoxic TECHNIQUE: One view of the chest was acquired. COMPARISON: [facility], CR, XR CHEST 1V, 02/28/2019, 7:51. [facility], CR, XR CHEST 1V, 02/27/2019, 13:17. [facility], CR, XR CHEST 1V, 03/01/2019, 10:20. FINDINGS: Surgical changes and devices: None. Lungs and pleura: No lesion of the lungs is similar to the prior study. There may be an opacity at the left lung base that obscures the diaphragm, which is unchanged since the prior exam. No pneumothorax. Interstitial prominence within the perihilar regions is present. Mediastinum: Mediastinal contours appear normal. Heart size is borderline enlarged. There is aortic atherosclerosis. Bones and chest wall: No suspicious bony lesions. Degenerative changes of the shoulders and spine are not adequately evaluated. Surgical clips within the right upper quadrant suggest previous cholecystectomy. Overlying soft tissues appear unremarkable. IMPRESSION: 1. Increasing density at the left lung base most likely represents a left-sided pleural effusion with associated atelectasis. Please correlate clinically to exclude superimposed pneumonia. 2. Borderline cardiomegaly with associated vascular congestion. Dictated by: Edmundo Recinos M.D. on 03/02/2019 at 9:28 Approved by: Edmundo Recinos M.D. on 03/02/2019 at 9:30
[2019-03-02] MEDS: FAMOTIDINE 20 MG/50 ML PIGGYBACK 200 MG IV ×2 (10:00→21:12)
[2019-03-02] MEDS: LEVOTHYROXINE 75 MCG TABLET PO (10:00)
[2019-03-02] MEDS: NICOTINE 21 MG PATCH TOP (10:00)
[2019-03-02] MEDS: methylPREDNISolone 125 MG/2 ML VIAL 80 MG IV ×2 (10:00→18:26)
[2019-03-02] MEDS: DOCUSATE 100 MG CAPSULE PO (10:05)
[2019-03-02] MEDS: LISINOPRIL 20 MG TABLET PO (10:05)
[2019-03-02] MEDS: BUDESONIDE 0.5 MG/2 ML NEB INH ×2 (11:45→19:46)
[2019-03-02 11:56] LABS: B Type Natriuretic Peptide < 100 (<100)
--- NOTE | 2019-03-02 11:57 | DIET.PN ---
Dietary Progress Note Assessment: 63y M admitted to ICU as needed intubation following planned cervical fusion referred to nutrition for 70# unintentional wt loss in past year. Pt was on bipap during interview, unable to contribute to story. Pt's historian, showed this RD picture of her fat ted from a year ago, pt has lost 30% of total body weight in 1y unintentionally. Pt appetite 1/2 to 1/4 of what it was a year ago. In addition to end stage COPD, pt broke ribs in 07/13 reducing abililty to consume food, bringing on depression, and is on chronic opioids r/t chronic px. Per pt , he has always been a snacker rather than sitting for meals. Pt usually skips breakfast, sometimes coffee c banana, a new rule at work that he cannot snack at his bench, home cooked meal at dinner (meatloaf, goulash) c a beer. Pt dislikes ONS drinks, willing to try chocolate protein smoothie here. HT: 180cm WT: 71kg UBW: 100kg BMI:21.9 MNA: 5 malnourished Ammon: 15 Nutrition Diagnosis: Acute on Chronic Severe PCM r/t multifactoral etiologies reducing appetite and ability to consume adequate POs aeb pt has end stage COPD, broke ribs in 07/13, depression, on opiate therapies for chronic px, 30% unintentional wt loss in 1y (severe), was intubated, now on bipap in ICU, <50% EERs for 6+mo. Interventions: recc ONS chocolate yogurt protein smoothie tid to support PCM Diet Order: general EER: 2100kcal, 92g PRO (1.3g/kg per maln), 2.1L fluids Monitoring/Evaluations: ons tolerance, weight, POs
[2019-03-02 12:40] LABS: Procalcitonin 0.21 ng/mL (<0.5)
--- NOTE | 2019-03-02 12:45 | CM.DPC ---
DCP SNF Planning: Per MD, pt still not medically stable and still requiring bipap at this time and has been sedated with Ativan from agitation likely due to mask and alcohol withdrawal symptoms. Rule out of heart failure and possible pneumonia and aspiration. Per PT, recommending SNF at d/c before safe return home. SW met bedside with spouse and explained role again and discussed recommendation of SNF. Spouse states she feels SNF needed at d/c and knows pt will agree but that he can be stubborn and shown that he needs SNF before going home. SW provided the SNF Choice List and discussed that most are contracted with pt's [employer] insurance and that auth would be needed before he could be officially accepted at SNF. Spouse states that she plans to try to tour [facility] and [facility] this evening to determine preference but agreeable with initial referral being made to both for review. SW discussed the importance of getting SNF preference by tomorrow morning to begin insurance auth and spouse acknowledges understanding. SW called [facility] and [facility] admissions and provided new referral and requested review and updated that pt has [employer] and will need auth started soon and BIBI Wu kindly faxed SNF referral packet to both facilities. PASRR completed in anticipation of SNF at d/c. Plan: SW to follow for [facility] and [facility] review and final SNF preference from spouse in the morning so SNF can begin insurance auth through [employer]. MARIA Sheppard
--- NOTE | 2019-03-02 13:21 | PM.PN.1 ---
Subjective Subjective Date Patient Seen: 03/02/19 Interval history: Patient is a 63-year-old male who is postop day 3 for C3-C4 anterior diskectomy and posterior fusion, hypertension, thyroidism, who we were asked to consult on for management of his acute respiratory failure. The patient was extubated postoperatively, he required re-intubation in the recovery unit. He since has been extubated. Since extubation the patient continues to have difficulty with breathing, he remains markedly hypoxic, he has hypercarbia as well. The patient's reports that he has a longstanding history of smoking, although no diagnosis of COPD and not previously on oxygen he did have shortness of breath with exertion. In addition the patient recently fractured his ribs several months ago and had difficulty breathing there. There is some evidence to suggest he may have some underlying sleep apnea as well. Overnight the patient was on BiPAP. This morning he became agitated. He was given a dose of Ativan with some worsening confusion and possible respiratory depression. He is more awake and alert now, he was taken off his BiPAP as he was somewhat agitated. He became tachycardic, hypertensive, and hypoxic. Patient is now back on BiPAP. Exam Vital Signs (past 8 hours): - 03/02/19 06:00 03/02/19 07:35 03/02/19 08:00 Temperature 99.5 F Pulse Rate 110 H 116 H Respiratory Rate 21 20 17 Blood Pressure 132/96 H 145/81 H Pulse Oximetry 92 93 95 03/02/19 11:30 Temperature Pulse Rate Respiratory Rate Blood Pressure 141/81 H Pulse Oximetry Fraction of Inspired Oxygen 35 Oxygen Delivery Method BiPAP Oxygen Flow Rate 86 Narrative Exam Narrative: Ill-appearing male confused somewhat agitated on BiPAP Lungs: Decreased breath sounds with scattered crackles bilaterally Cardiac exam: Tachycardic regular rate and rhythm normal S1-S2 Neck: Posterior cervical lesion dry with dressing in place no exudates or erythema Abdomen: Soft nontender nondistended Extremities: No edema Objective Labs Result Diagrams: 03/02/19 04:30 03/02/19 04:30 Labs: Laboratory Results - last 24 hr 03/01/19 03/02/19 03/02/19 16:45 04:30 04:30 WBC 10.4 RBC 4.35 L Hgb 14.1 Hct 42.1 MCV 96.8 MCH 32.6 MCHC 33.6 RDW 14.1 Plt Count 148 L Neut % (Auto) 82.2 H Lymph % (Auto) 8.8 L [place] % (Auto) 8.9 Eos % (Auto) 0.0 L Baso % (Auto) 0.1 Neut # (Auto) 8500 H Lymph # (Auto) 900 L [place] # (Auto) 900 Eos # (Auto) 0 Baso # (Auto) 0 ABG pH 7.32 L ABG pCO2 71.1 H* ABG pO2 67 L ABG HCO3 37 H ABG Total CO2 39 H ABG O2 Saturation 90 L ABG Base Excess 10.0 H FiO2 35 Sodium 138 Potassium 3.7 Chloride 98 Carbon Dioxide 34 H BUN 26 H Creatinine 0.50 L Estimated GFR > 60.0 BUN/Creatinine Ratio 52.0 H Glucose 72 L Calcium 8.9 Total Bilirubin 1.5 H Conjugated Bilirubin 0.0 Unconjugated Bilirubin 1.3 H AST 33 ALT 41 Alkaline Phosphatase 56 B-Natriuretic Peptide Total Protein 5.8 L Albumin 3.1 L Globulin 2.7 Albumin/Globulin Ratio 1.1 Procalcitonin 03/02/19 03/02/19 03/02/19 05:39 11:25 11:25 WBC RBC Hgb Hct MCV MCH MCHC RDW Plt Count Neut % (Auto) Lymph % (Auto) [place] % (Auto) Eos % (Auto) Baso % (Auto) Neut # (Auto) Lymph # (Auto) [place] # (Auto) Eos # (Auto) Baso # (Auto) ABG pH 7.36 ABG pCO2 63.5 H* ABG pO2 71 L ABG HCO3 36 H ABG Total CO2 38 H ABG O2 Saturation 93 L ABG Base Excess 10.0 H FiO2 0.35 Sodium Potassium Chloride Carbon Dioxide BUN Creatinine Estimated GFR BUN/Creatinine Ratio Glucose Calcium Total Bilirubin Conjugated Bilirubin Unconjugated Bilirubin AST ALT Alkaline Phosphatase B-Natriuretic Peptide < 100 Total Protein Albumin Globulin Albumin/Globulin Ratio Procalcitonin 0.21 Assessment & Plan Assessment & Plan narrative: Impression 1. 63-year-old male with acute hypercarbic hypoxemic respiratory failure -suspect underlying COPD -question underlying sleep apnea -given thick secretions underlying bronchitis likely contributing as well -procalcitonin 0.21, BNP less than 100, white count -patient was given Solu-Medrol, albuterol Atrovent, budesonide, and is now on BiPAP -will start levofloxacin given thick secretions with a goal of a 5 day course of treatment -the patient does not tolerate BiPAP with light sedation consider intubation given his progressive severe respiratory failure 2. Hypertension, present on admission -will place a clonidine patch -continue lisinopril 3. Hypothyroidism -present on admission -continue thyroid replacement 4. Transaminitis 5. History of alcohol dependence, no evidence to suggest alcohol withdrawal at this time -will discontinue CIWA protocol 6. Acute metabolic encephalopathy -suspect secondary to underlying medical illness, doubt alcohol withdrawal based on conversation with his 7. Nicotine dependent and withdrawal -continue nicotine patch Patient is critically ill,
--- NOTE | 2019-03-02 13:23 | PT-IP ANOTE ---
Per RN pt not appropriate for therapy today, will check on pt in the morning.
--- NOTE | 2019-03-02 13:29 | DI.CT.S_ITS ---
PROCEDURE: CT ANGIO CHEST INDICATIONS: acute respiratory failure TECHNIQUE: After the administration of intravenous contrast, 2 mm thick sections acquired from the pulmonary apices to the posterior costophrenic angles. 3-dimensional maximum intensity projection (MIP) coronal and sagittal reformats were then acquired through the thorax. For radiation dose reduction, the following was used: automated exposure control, adjustment of mA and/or kV according to patient size. COMPARISON: [facility], CR, XR CHEST 2 VIEWS, 10/10/2018, 7:37. [facility], CR, XR CHEST 1V, 02/27/2019, 13:17. [facility], CR, XR CHEST 1V, 02/28/2019, 7:51. [facility], CR, XR CHEST 1V, 03/01/2019, 10:20. [facility], CR, XR CHEST 1V, 03/02/2019, 10:03. FINDINGS: Image quality: Mild respiratory motion artifacts. Pulmonary arteries: Pulmonary arteries are normal in size, and demonstrate no definitive intraluminal filling defects to suggest central pulmonary embolism. Lungs and pleura: Bilateral lower lobe consolidations consistent with pneumonia. Mild subpleural interstitial thickening and early pulmonary fibrosis. There is small left effusion. No pneumothorax. There are filling defects in the trachea and left mainstem bronchus, likely nucleus secretions. Mediastinum: Heart size is normal, without pericardial effusion. No mediastinal or hilar adenopathy. Borderline sized aortopulmonary window lymph nodes are likely reactive. Thoracic aorta is normal in caliber and enhancement. Esophagus is normal in caliber, without hiatal hernia. Bones and chest wall: No suspicious bony lesions. Ribs and thoracic spine appear intact throughout. Thyroid gland is normal. No axillary or supraclavicular adenopathy. Abdomen: Visualized upper abdominal solid organs appear normal in the early arterial phase of enhancement. IMPRESSION: 1. Mild respiratory motion artifacts. No definitive pulmonary embolism. 2. Bilateral lower lobe consolidations consistent with pneumonia. 3. Filling defects in trachea and left mainstem bronchus are probably caused by mucous plugs. Endobronchial masses are less likely. Followup imaging is suggested. 4. Small left effusion. 5. Interstitial lung disease and early pulmonary fibrosis. Dictated by: Susy De La Vega M.D. on 03/02/2019 at 14:13 Approved by: Susy De La Vega M.D. on 03/02/2019 at 14:34
--- NOTE | 2019-03-02 14:28 | SLP.IPNOTE ---
Per RN, patient not appropriate for swallow evaluation today. Will follow-up tomorrow.
[2019-03-02] MEDS: PIPERACILLIN-TAZO 3.375 GM/50 ML FROZ.PIGGY IV ×2 (14:38→21:38)
[2019-03-02] MEDS: cloNIDine TTS 0.2 MG PATCH TOP (14:46)
--- NOTE | 2019-03-02 14:54 | PC.NURSE ---
PT STRUGGLING WITH BIPAP MOST OF SHIFT - REMOVED IT SEVERAL TIMES TO ATTEMPT HFNC AND PER HIS DEMANDS HE CONTINUALLY PULLED OFF MASK AND ATTEMPTING TO GET UP FROM BED. HE IS UNABLE TO SIT UP ON HIS OWN , HE LEANS BACK AND CANNOT SUPPORT HIS OWN TORSO-no narcotics or lorazepam given this shift- cpt done and is helpful. at bedside- clonidine patch applied to chest wall as has nicotine patch- he has been increasingly agitated and attempting to remove bipap mask, saline lock x 2- ct of chest completed
--- NOTE | 2019-03-02 16:54 | PC.NURSE ---
1700 - Pt drowsy. Only opens eyes a small amount with request, but able to home restoration service cleaner when asked, equal. Restless in bed. Occasionally pulling at mask and chun. SCD's removed r/t agitation. Lifting legs in air, pulling at cuffs. HR tachycardia, 125's, Sats 94% on Bi-pap Fio2 45% pressure 20/15. repositioned to right side, however pt turned self onto back. Barrier cream applied to coccyx. Bed alarm on.
--- NOTE | 2019-03-02 17:41 | P.CONS_ITS ---
History of Present Illness Consult details Date Patient Seen: 03/02/19 Time Patient Seen: 17:10 Chief complaint: Cervical Fusion Anterior/Posterior Reason for consult: Mucus plugs Requesting provider: Yanira Lucas Narrative: Patient is a gentleman who had a cervical fusion performed. He was ventilated postop add on extubation has required BiPAP. He has remained hypoxic with CO2 retention an acidosis and I was asked to do a bronchoscopy as he had a CT scan that suggested a left is main stem plug along with the additional material and trachea. He has bilateral lower lobe infiltrates as well consistent with pneumonia Meds Home Medications and Allergies Home Medications Medication Instructions Recorded Confirmed Type ibuprofen 400 mg PO Q6H PRN 02/26/19 02/26/19 History levothyroxine 75 mcg PO DAILY 02/26/19 02/27/19 History lisinopril 20 mg PO DAILY 02/26/19 02/27/19 History Allergies Allergy/AdvReac Type Severity Reaction Status Date / Time meperidine [From Demerol] Allergy Severe ITCHING Verified 02/27/19 06:51 celecoxib [From Celebrex] Allergy Intermediate Hives Verified 02/27/19 06:51 shellfish derived Allergy Intermediate Hives Verified 02/27/19 06:51 Sulfa (Sulfonamide Allergy Intermediate Hives Verified 02/27/19 06:51 Antibiotics) Review of Systems Review of Systems ROS Unobtainable: unobtainable due to mental status Exam Vital Signs (past 8 hours): - 03/02/19 11:30 03/02/19 12:00 03/02/19 15:20 Temperature 98.6 F Pulse Rate 113 H Respiratory Rate 21 Blood Pressure 141/81 H 117/59 L 129/89 Pulse Oximetry 91 03/02/19 16:00 03/02/19 17:20 Temperature 97.0 F L Pulse Rate 112 H Respiratory Rate 18 Blood Pressure 143/91 H 132/90 Pulse Oximetry Fraction of Inspired Oxygen 35 Oxygen Delivery Method BiPAP Oxygen Flow Rate 86 Narrative Exam Narrative: Patient unresponsive. Does not respond to questions or examination. Lungs sound tight. I really hear very little air movement bilaterally. Is on BiPAP machine. Abdomen is soft. No obvious response to palpation. Objective Labs Result Diagrams: 03/02/19 04:30 03/02/19 04:30 Labs: Laboratory Results - last 24 hr 03/02/19 03/02/19 03/02/19 04:30 04:30 05:39 WBC 10.4 RBC 4.35 L Hgb 14.1 Hct 42.1 MCV 96.8 MCH 32.6 MCHC 33.6 RDW 14.1 Plt Count 148 L Neut % (Auto) 82.2 H Lymph % (Auto) 8.8 L [place] % (Auto) 8.9 Eos % (Auto) 0.0 L Baso % (Auto) 0.1 Neut # (Auto) 8500 H Lymph # (Auto) 900 L [place] # (Auto) 900 Eos # (Auto) 0 Baso # (Auto) 0 ABG pH 7.36 ABG pCO2 63.5 H* ABG pO2 71 L ABG HCO3 36 H ABG Total CO2 38 H ABG O2 Saturation 93 L ABG Base Excess 10.0 H FiO2 0.35 Sodium 138 Potassium 3.7 Chloride 98 Carbon Dioxide 34 H BUN 26 H Creatinine 0.50 L Estimated GFR > 60.0 BUN/Creatinine Ratio 52.0 H Glucose 72 L Calcium 8.9 Total Bilirubin 1.5 H Conjugated Bilirubin 0.0 Unconjugated Bilirubin 1.3 H AST 33 ALT 41 Alkaline Phosphatase 56 B-Natriuretic Peptide Total Protein 5.8 L Albumin 3.1 L Globulin 2.7 Albumin/Globulin Ratio 1.1 Procalcitonin 03/02/19 03/02/19 11:25 11:25 WBC RBC Hgb Hct MCV MCH MCHC RDW Plt Count Neut % (Auto) Lymph % (Auto) [place] % (Auto) Eos % (Auto) Baso % (Auto) Neut # (Auto) Lymph # (Auto) [place] # (Auto) Eos # (Auto) Baso # (Auto) ABG pH ABG pCO2 ABG pO2 ABG HCO3 ABG Total CO2 ABG O2 Saturation ABG Base Excess FiO2 Sodium Potassium Chloride Carbon Dioxide BUN Creatinine Estimated GFR BUN/Creatinine Ratio Glucose Calcium Total Bilirubin Conjugated Bilirubin Unconjugated Bilirubin AST ALT Alkaline Phosphatase B-Natriuretic Peptide < 100 Total Protein Albumin Globulin Albumin/Globulin Ratio Procalcitonin 0.21 Assessment & Plan Assessment & Plan narrative: Patient with mucus plugs on CT scan which was reviewed. Will proceed to bronchoscopy. Patient will require re-intubation will probably be remain on the ventilator. I talked to the patient's Snow by calling her at home. Her about the anesthesia that will be necessary the re-intubation the probability he would remain on a ventilator and the reason for doing the procedures well ink as the risks. She appears to understand. Consent was witnessed. Will proceed. Patient at high risk of due to pulmonary complications.
[2019-03-02] MEDS: PROPOFOL 1,000 MG/100 ML VIAL 2.133 MG IV (18:01)
--- NOTE | 2019-03-02 18:09 | DI.RAD.S_ITS ---
PROCEDURE: XR CHEST 1V INDICATIONS: s/p Bronchoscopy TECHNIQUE: One view of the chest was acquired. COMPARISON: [facility], , XR CHEST 1V, 03/02/2019, 10:03. FINDINGS: Surgical changes and devices: ET tube in satisfactory position. Lungs and pleura: Patchy bibasilar atelectasis. No pleural effusions or pneumothorax. Mediastinum: Mediastinal contours appear normal. Heart size is normal. Bones and chest wall: No suspicious bony lesions. Overlying soft tissues appear unremarkable. IMPRESSION: Patchy bibasilar atelectasis. ET tube in satisfactory position. Dictated by: Johnny Oneal M.D. on 03/02/2019 at 19:05 Approved by: Johnny Oneal M.D. on 03/02/2019 at 19:05
--- NOTE | 2019-03-02 18:32 | PM.OP.ENDO ---
Operative Date/Time/Diagnoses Date of procedure: 03/02/19 Time of procedure: 18:10 Pre-op diagnosis: Mucus plugs left lung Post-op diagnosis: same Procedure & Clinicians Study performed: Bronchoscopy Same procedure as scheduled: Yes Indications: Patient on BiPAP remaining hypoxic with CO2 retention and respiratory acidosis. I was asked to clear his lung of mucous plugs. Procedure Notes SCOAP/Timeout: Performed Procedure in detail: The patient was left in the ICU on his bed. BiPAP was removed after preoxygenated melo and he was intubated by anesthesia. An 8 tube was used. Bronchoscope was inserted through the adapter and the tracheobronchial tree in its entirety was markedly inflamed. The left side had multiple plugs which were suctioned out with great care. Cultures were taken. The right side did not have plugging. I irrigated and suction both lungs however due to the fact that the patient had bilateral infiltrates based upon recent CT scanning. I cleared all of the plugs in the left lung with suction irrigation and suction. The bronchoscope was removed. Patient had good air movement bilaterally at completion of the procedure. This was a marked improvement from pre procedure. Scope withdrawal time: Not applicable Sedation minutes: 0 (Patient was Re intubated with an endotracheal tube which was managed by anesthesia) Findings: other findings (Mucus plugs extensive in the left lung) Specimen(s): other (Culture mucous) Complications: none Post-procedure Recommendations: Other recommendation (Follow clinically) Plan for aftercare: Per hospitalist service Disposition: ICU
--- NOTE | 2019-03-02 19:18 | PC.NURSE ---
Addendum entered by Evelin Pino R.N. 03/02/19 22:38: 2230 - Pt continues to be hypotensive. Map >60. Reviewed with Hospitalist. Titrating propofol down. Clonidine patch removed. Pt reactive to light stimuli. Monitor. Original Note: 1750 - Surgery and Ansthesia in room ready for intubation and bedside bronchoscopy. Propofol given by anesthesia. Intubated with ET tube #8, set at 23 at the teeth. [address] by anesthesia[address]. Verduzco able to perform bronch. Sputum sample obtained. Following procedure, Rt set up vent. Chest x-ray ordered and verified by Dr. Verduczo at bedside. 1800 - Propfol gtt titrated up to 10 mcg/kg/min. Pt restless. 1900 - Pt continues to be restless. Moving legs over the edge of the bed. Holding cuhn catheter. Biting ET tube. Oral care and suction oral cavity for copious clear secretions. Repositioned. Dilaudid given. Propofol titrated up to 30mcg/kg/min. While restraints are released for care pt makes repeated attempts to reach for ET tube. Attempt to reorient. Monitor.
[2019-03-02 20:16] LABS: HCO3 ABG 33 mmol/L (22-26); Oxygen Saturation ABG 94 % (95-100); PCO2 ABG 38.7 mmHg (35-45); PO2 ABG 62 mmHg (80-100); TCO2 ABG 34 mmol/L (21-31); pH ABG 7.53 (7.35-7.45)
[2019-03-02 20:17] LABS: Fractionated Inspired Oxygen 35
--- NOTE | 2019-03-02 20:41 | SUR.OPER ---
PROCEDURE DONE IN ICU ROOM 101.
--- NOTE | 2019-03-02 21:50 | SUR.OPER ---
PATIENT IN ICU BED. CONSENTS OBTAINED VIA PHONE.
--- NOTE | 2019-03-02 23:43 | PC.NURSE ---
Addendum entered by Evelin Pino R.N. 03/03/19 01:19: 0115 - Pt restless in bed. Kicking legs in air. Pulling against restraints. Pt with eyes open, tracking. Able to nod head yes to question of pain. FLACC 5. Dilaudid given. BP 132/73. Bolus complete. IVF infusing at 125cc/hr. Propofol infusing at 15mcg/kg/min. Original Note: 2300 - Following repositioning and care. BP 108/64 Map 79, at 2330 with rest. BP 88/44 Map of 62. Propofol at 15mcg/kg/min. Discussed peep of 8 settings with RT with regard to hypotension. State they would rather not titrate if possible. Relayed above to Hospitalist, Orders obtained for IV bolus and fluid. Monitor.
[2019-03-02] MEDS: SODIUM CHLORIDE 0.9% 1,000 ML 1000 ML IV (23:45)
[2019-03-03] VITALS (24 sets, daily range): BP systolic 86–145; BP diastolic 47–93; PULSE 82–127; RESP 14–28; TEMP 36.6–37.7; O2SAT 92–100; BMI 21.9
[2019-03-03] MEDS: methylPREDNISolone 125 MG/2 ML VIAL 80 MG IV ×3 (00:35→18:47)
[2019-03-03] MEDS: SODIUM CHLORIDE 0.9% 1,000 ML 125 ML IV ×2 (00:35→06:05)
[2019-03-03] MEDS: HYDROMORPHONE 0.5 MG INJ IV ×5 (01:18→18:47)
[2019-03-03] MEDS: PROPOFOL 1,000 MG/100 ML VIAL 6.399 MG IV (02:53)
[2019-03-03] MEDS: ALBUTEROL/IPRATROPIUM 3 ML AMPUL INH ×6 (03:41→22:14)
[2019-03-03] MEDS: DEXTROSE 5% WATER 500 ML 21 ML IV (04:16)
[2019-03-03] MEDS: PIPERACILLIN-TAZO 3.375 GM/50 ML FROZ.PIGGY IV ×3 (05:34→21:51)
[2019-03-03 05:37] LABS: Add Manual Diff / Slide Review NO; Basophils Absolute Auto 0 /uL (0-100); Eosinophils Absolute Auto 0 /uL (0-450); Hematocrit 37.3 % (41-53); Hemoglobin 12.6 g/dL (13.5-17.5); Lymphocytes Absolute Auto 400 /uL (1100-4500); Mean Corpuscular HGB Conc 33.7 % (30-36); Mean Corpuscular Hemoglobin 32.5 PG (26-34); Mean Corpuscular Volume 96.6 fL (80-100); Monocytes Absolute Auto 200 /uL (0-900); Monocytes Percent Auto 3.1 % (3-14); Neutrophils Absolute Auto 6200 /uL (1500-7000); Neutrophils Percent Auto 90.9 % (50-75); Platelet Count 144 X10^3/uL (150-400); Red Blood Cell Count 3.86 X10^6/uL (4.5-5.9); Red Cell Distribution Width 14.1 % (11.6-14.8); White Blood Cell Count 6.8 X10^3/uL (4.5-11.0)
[2019-03-03 05:49] LABS: Alanine Aminotransferase 29 IU/L (<50); Albumin 2.7 g/dL (3.5-5.0); Albumin Globulin Ratio 1.1 (1.0-2.8); Alkaline Phosphatase 51 U/L (38-126); Aspartate Aminotransferase 23 IU/L (17-59); Bilirubin Total 1.5 mg/dL (0.2-1.3); Blood Urea Nitrogen 29 mg/dL (9-20); Calcium 8.5 mg/dL (8.4-10.2); Carbon Dioxide 31 mmol/L (22-32); Chloride 103 mmol/L (98-107); Estimated Glomerular Filt Rate > 60.0 mL/min (>60); Globulin 2.4 g/dL (1.7-4.1); Glucose 126 mg/dL (80-110); HEMOLYSIS < 15 (0-50); Potassium 3.2 mmol/L (3.4-5.1); Sodium 142 mmol/L (137-145); Total Protein 5.1 g/dL (6.3-8.2)
[2019-03-03 06:03] LABS: Procalcitonin 0.16 ng/mL (<0.5)
--- NOTE | 2019-03-03 06:10 | PC.NURSE ---
pt sdtable on vent- not requiring any setting changes during my shift- fio2-35%, peep 8, rate 16 and tv-500, oral + ett secretions thin whitish/clear, improved lung sounds bilat , although remains diminished but able to hear air exchange, sr/st per monitor, rass of -2 on propofol @ 15mcg/kg/h- pt did not tolerate turning to right as evidenced by increased hr/decreased spo2- turned back and these vitals are improving- lay patent
[2019-03-03] MEDS: BUDESONIDE 0.5 MG/2 ML NEB INH ×2 (06:27→22:14)
--- NOTE | 2019-03-03 07:31 | PM.PNPO.1 ---
Subjective Subjective Date Patient Seen: 03/03/19 Time Patient Seen: 07:31 Interval history: Due to the patient's deterioration, a CT scan was obtained of his chest, indicating most likely left lobe pneumonia as well as mucus plugging. He underwent bronchoscopy and washout of the mucous plugging which seemed to clear his respirations significantly. He was intubated for this and remains intubated. He will wake up to stimulation but does not follow commands. Exam Vital Signs (past 8 hours): - 03/03/19 01:00 03/03/19 02:00 03/03/19 02:06 Temperature Pulse Rate 106 H 87 94 H Respiratory Rate 17 16 16 Blood Pressure 134/73 115/63 108/61 Pulse Oximetry 99 99 99 03/03/19 04:00 03/03/19 05:00 03/03/19 06:09 Temperature 99.8 F H Pulse Rate 98 H 127 H 119 H Respiratory Rate 16 16 16 Blood Pressure 111/59 L 86/47 L 98/51 L Pulse Oximetry 98 97 93 03/03/19 07:00 Temperature Pulse Rate 112 H Respiratory Rate 16 Blood Pressure 101/55 L Pulse Oximetry 94 Fraction of Inspired Oxygen 35 Oxygen Delivery Method Mechanical Ventilation Oxygen Flow Rate 86 Const Orientation: alert and oriented x3 Back/Spine/Pelvis Other: Neck CDI Objective Labs Result Diagrams: 03/03/19 05:15 03/03/19 05:15 Labs: Laboratory Results - last 24 hr 03/02/19 03/02/19 03/02/19 11:25 11:25 19:58 WBC RBC Hgb Hct MCV MCH MCHC RDW Plt Count Neut % (Auto) Lymph % (Auto) [place] % (Auto) Eos % (Auto) Baso % (Auto) Neut # (Auto) Lymph # (Auto) [place] # (Auto) Eos # (Auto) Baso # (Auto) ABG pH 7.53 H ABG pCO2 38.7 ABG pO2 62 L ABG HCO3 33 H ABG Total CO2 34 H ABG O2 Saturation 94 L ABG Base Excess 10.0 H FiO2 35 Sodium Potassium Chloride Carbon Dioxide BUN Creatinine Estimated GFR BUN/Creatinine Ratio Glucose Calcium Total Bilirubin AST ALT Alkaline Phosphatase B-Natriuretic Peptide < 100 Total Protein Albumin Globulin Albumin/Globulin Ratio Procalcitonin 0.21 03/03/19 03/03/19 03/03/19 05:15 05:15 05:15 WBC 6.8 RBC 3.86 L Hgb 12.6 L Hct 37.3 L MCV 96.6 MCH 32.5 MCHC 33.7 RDW 14.1 Plt Count 144 L Neut % (Auto) 90.9 H Lymph % (Auto) 6.0 L [place] % (Auto) 3.1 Eos % (Auto) 0.0 L Baso % (Auto) 0.0 Neut # (Auto) 6200 Lymph # (Auto) 400 L [place] # (Auto) 200 Eos # (Auto) 0 Baso # (Auto) 0 ABG pH ABG pCO2 ABG pO2 ABG HCO3 ABG Total CO2 ABG O2 Saturation ABG Base Excess FiO2 Sodium 142 Potassium 3.2 L Chloride 103 Carbon Dioxide 31 BUN 29 H Creatinine 0.50 L Estimated GFR > 60.0 BUN/Creatinine Ratio 58.0 H Glucose 126 H Calcium 8.5 Total Bilirubin 1.5 H AST 23 ALT 29 Alkaline Phosphatase 51 B-Natriuretic Peptide Total Protein 5.1 L Albumin 2.7 L Globulin 2.4 Albumin/Globulin Ratio 1.1 Procalcitonin 0.16 Assessment & Plan Post-op Postoperative Procedures: Procedures Operation Date: 02/27/19 07:45 Actual Procedures Side Surgeon p C3-7 anterior discectomy and anterior/posterior instrumentated fusion w/ bone graft Joo Osullivan MD Operation Date: 03/02/19 18:00 Actual Procedures Side Surgeon p Bronchoscopy Not Applicable Jm Verduzco MD no orthopedic issues. On issues currently due to his pulmonary status in the ICU. Continue with ICU management. Appreciate comanagement with Dr. Lucas and Dr. Verduzco.
--- NOTE | 2019-03-03 08:05 | OT.IP.TRT ---
Current Diagnoses Other spondylosis with myelopathy, cervical region (02/27/19) Spinal stenosis, cervical region (02/27/19) Surgery Performed Operation Date: 02/27/19 07:45 Actual Procedures p C3-7 anterior discectomy and anterior/posterior instrumentated fusion w/ bone graft - Joo Osullivan MD Operation Date: 03/02/19 18:00 Actual Procedures p Bronchoscopy(Not Applicable) - Jm Verduzco MD Occupational Therapy Treatment Note M2 OT-IP Current Condition Start: 02/27/19 15:37 Freq: Status: Active Protocol: Document 02/28/19 15:53 CGR (Rec: 02/28/19 16:10 CGR [email or web address]) Occupational Therapy Current Condition Current Condition Evaluation Date 02/28/19 Treatment Diagnosis C3-7 ACDF w bone graft, extubated 02/28 Diagnosis Onset Date 02/27/19 Post Operative Precautions Cervical Spine Precautions Soft Collar for Comfort,No Heavy Lifting,Log Roll M3 OT- IP Subjective and Pain Start: 02/27/19 15:37 Freq: Status: Active Protocol: Document 03/03/19 08:03 CCC (Rec: 03/03/19 08:05 CCC [email or web address]) OT- Subjective Occupational Therapy Visit Type Type Patient Unavailable Notes Pt still intubated, HOLD per nursing today until nursing able to notify therapy that pt is ready to be seen.
[2019-03-03] MEDS: NICOTINE 21 MG PATCH TOP (08:29)
[2019-03-03] MEDS: FAMOTIDINE 20 MG/50 ML PIGGYBACK 200 MG IV ×2 (08:29→21:31)
[2019-03-03] MEDS: ENOXAPARIN 40 MG/0.4 ML SYRINGE SUBCUT (08:29)
[2019-03-03] MEDS: BISACODYL 10 MG SUPP PR (08:30)
--- NOTE | 2019-03-03 09:14 | PT-IP ANOTE ---
Pt still intubated, per RN hold on pt.
--- NOTE | 2019-03-03 10:28 | SLP.IPNOTE ---
Patient remains intubated; therefore, speech therapy orders for swallow evaluation remain on hold at this time. Will follow-up tomorrow.
--- NOTE | 2019-03-03 11:06 | P.PN_ITS ---
Subjective Subjective Date Patient Seen: 03/03/19 Interval history: Patient seen and examined, events reviewed. Patient had CT scan of the chest yesterday which revealed significant mucus probing. Patient was electively intubated and underwent bronchoscopy with suctioning and removal of the mucus plugging. He has had an uneventful night. Patient is tolerating intubation without difficulty. He is currently undergoing weaning trial for possible extubation. His is at the bedside, questions have been answered. Exam Vital Signs (past 8 hours): - 03/03/19 04:00 03/03/19 05:00 03/03/19 06:09 Temperature 99.8 F H Pulse Rate 98 H 127 H 119 H Respiratory Rate 16 16 16 Blood Pressure 111/59 L 86/47 L 98/51 L Pulse Oximetry 98 97 93 03/03/19 07:00 03/03/19 08:00 03/03/19 09:00 Temperature 98.5 F Pulse Rate 112 H 108 H 107 H Respiratory Rate 16 16 16 Blood Pressure 101/55 L 105/59 L 115/68 Pulse Oximetry 94 94 92 03/03/19 10:00 03/03/19 10:10 Temperature 97.9 F Pulse Rate 98 H Respiratory Rate 16 Blood Pressure 114/69 Pulse Oximetry 92 92 Fraction of Inspired Oxygen 35 Oxygen Delivery Method Mechanical Ventilation Oxygen Flow Rate 86 Narrative Exam Narrative: Sedated male intubated on the ventilator Neck: Dressing in place Lungs: Decreased breath sounds bilaterally, no rhonchi crackles or wheezes Cardiac exam: Tachycardic regular rate and rhythm normal S1-S2 Abdomen: Soft nontender nondistended, no hepatosplenomegaly Extremities: No edema Objective Labs Result Diagrams: 03/03/19 05:15 03/03/19 05:15 Labs: Laboratory Results - last 24 hr 03/02/19 03/02/19 03/02/19 11:25 11:25 19:58 WBC RBC Hgb Hct MCV MCH MCHC RDW Plt Count Neut % (Auto) Lymph % (Auto) Buchanan % (Auto) Eos % (Auto) Baso % (Auto) Neut # (Auto) Lymph # (Auto) Buchanan # (Auto) Eos # (Auto) Baso # (Auto) ABG pH 7.53 H ABG pCO2 38.7 ABG pO2 62 L ABG HCO3 33 H ABG Total CO2 34 H ABG O2 Saturation 94 L ABG Base Excess 10.0 H FiO2 35 Sodium Potassium Chloride Carbon Dioxide BUN Creatinine Estimated GFR BUN/Creatinine Ratio Glucose Calcium Total Bilirubin AST ALT Alkaline Phosphatase B-Natriuretic Peptide < 100 Total Protein Albumin Globulin Albumin/Globulin Ratio Procalcitonin 0.21 03/03/19 03/03/19 03/03/19 05:15 05:15 05:15 WBC 6.8 RBC 3.86 L Hgb 12.6 L Hct 37.3 L MCV 96.6 MCH 32.5 MCHC 33.7 RDW 14.1 Plt Count 144 L Neut % (Auto) 90.9 H Lymph % (Auto) 6.0 L Buchanan % (Auto) 3.1 Eos % (Auto) 0.0 L Baso % (Auto) 0.0 Neut # (Auto) 6200 Lymph # (Auto) 400 L Buchanan # (Auto) 200 Eos # (Auto) 0 Baso # (Auto) 0 ABG pH ABG pCO2 ABG pO2 ABG HCO3 ABG Total CO2 ABG O2 Saturation ABG Base Excess FiO2 Sodium 142 Potassium 3.2 L Chloride 103 Carbon Dioxide 31 BUN 29 H Creatinine 0.50 L Estimated GFR > 60.0 BUN/Creatinine Ratio 58.0 H Glucose 126 H Calcium 8.5 Total Bilirubin 1.5 H AST 23 ALT 29 Alkaline Phosphatase 51 B-Natriuretic Peptide Total Protein 5.1 L Albumin 2.7 L Globulin 2.4 Albumin/Globulin Ratio 1.1 Procalcitonin 0.16 Assessment & Plan Assessment & Plan narrative: Impression 1. 63-year-old male status post cervical fusion/diskectomy asked to evaluate for current respiratory failure, found to have mucus plugging and pneumonia -acute respiratory failure secondary to mucus plugging -patient currently undergoing weaning trial with plans to extubate today -likely with underlying COPD -will continue IV steroids, nebulizer treatment -will continue antibiotics given pneumonia seen on x-ray -resume BiPAP following extubation 2. Pneumonia -hospital-acquired -if patient on Zosyn, will continue Zosyn 3. Probable COPD -patient with a greater than 40 pack-year history of smoking, exertional d yspnea, baseline respiratory acidosis -continue nebulizer, continue steroids, outpatient pulmonary function studies -recommend outpatient pulmonary evaluation, patient may have evidence of sleep apnea as well. Be need sleep study as an outpatient 4. Hypokalemia -will replace 5. Hypothyroidism -resume L-thyroxine once able to take p.o. 6. Hypertension -blood pressure well controlled -resume lisinopril when taking p.o. Patient is a full code
--- NOTE | 2019-03-03 14:44 | PT.IPTN ---
Current Diagnoses Other spondylosis with myelopathy, cervical region (02/27/19) Spinal stenosis, cervical region (02/27/19) Surgery Performed Operation Date: 02/27/19 07:45 Actual Procedures p C3-7 anterior discectomy and anterior/posterior instrumentated fusion w/ bone graft - Joo Osullivan MD Operation Date: 03/02/19 18:00 Actual Procedures p Bronchoscopy(Not Applicable) - Jm Verduzco MD Physical Therapy Treatment Note M2 PT-IP Current Condition Start: 02/27/19 15:35 Freq: NEEDED Status: Active Protocol: Document 02/28/19 14:48 NFW (Rec: 02/28/19 15:29 NFW [id number]) Physical Therapy Current Condition Current Condition Evaluation Date 02/28/19 Treatment Diagnosis Cervical stenosis with myelopathy, s/p C3-8 post fusion and ACDF Precautions Cervical Spine Precautions Soft Collar for Comfort,No Heavy Lifting,Log Roll Brace Soft collar Weight Bearing Status Weight Bearing Status Full Weight Bearing M3 PT-IP Subjective Start: 02/27/19 15:35 Freq: NEEDED Status: Active Protocol: Document 03/03/19 14:44 AB (Rec: 03/03/19 16:16 AB [id number]) Subjective Physical Therapy Visit Type Type Treatment Note Visit Start Time 14:44 Visit Stop Time 15:11 Total Visit Minutes 27 Number of BUTTON SEWER Visits 0 Physical Therapy Visit Comments Patient Comments pt agreeable to do PT Therapy Pain Assessment Pain Present Pain Present Pain Reported Location Neck Intensity 5 Scale Used Numeric (1 - 10) Pain Management Techniques Modification of Treatment,Re- positioning,Timing of Activity with Medications M4 PT-IP Mobility and Gait Start: 02/27/19 15:35 Freq: NEEDED Status: Active Protocol: Document 03/03/19 14:44 AB (Rec: 03/03/19 16:16 AB [id number]) PT-Bed Mobility Assessment Supine to Sit Supine to Sit Maximum Assistance,2 Person Assistance,Head of Bed Elevated PT-Transfer Assessment Sit to and From Stand Sit to and from Stand Maximum Assistance,2 Person Assistance,Use of Upper Extremities Equipment Transfer Assistive Device Gait Belt,Front Wheeled Walker Orthotic/Prosthetic Devices or Brace: Yes Transfers Transfer Destination Chair Transfer Technique Stand Step Pivot Transfer Ability Level of Assist Maximum Assistance,2 Person Assistance,Use of Upper Extremities Comments Mobility Comments pt on high flow heated nasal cannula O2. pt not really making eye contact despite cues and has eyes looking/ gazing upwards but responds to questions appropriately. assisted pt with cervical soft collar on. completed bed mobility supine to sit max A x 2 and max cues with HOB elevated. pt was able to sit on EOB max A and cues with increase posterior leaning. requires cues to correct posture. pt completed sit to stand from EOB max A x 2-3 and max cues. completed stand step transfer using FWW max A x 2-3 and max cues. required assist to weight shift and to maneuver FWW during transfers. positioned on the chair. call light and table placed within reach. M5 PT-IP Objective Assessments Start: 02/27/19 15:35 Freq: NEEDED Status: Active Protocol: Document 02/28/19 14:48 NFW (Rec: 02/28/19 15:29 NFW [id number]) Orientation Orientation/Cognition Level of Alertness Lethargic Orientation Name,Place,Situation Language Function Ability Garbled Speech Safety Awareness Decreased Safety Awareness Gross Range of Motion Upper Extremity ROM Assessment Bilaterally Impaired Impairments AROM against gravity in flexion <90 degrees; abduction ~60 degrees with right weaker . AAROM against gravity in flexion to ~120 degrees; abduction to 90 degrees with right weaker. Lower Extremity ROM Impairments ROM LEs functional. Strength Upper Extremity Strength Assessment Bilaterally Impaired Shoulder 3/5 Elbow 4/5 Wrist 4/5 Hand 3/5 Lower Extremity Strength Assessment Bilaterally Impaired Hip 3/5 in flexion Knee 3+/5 in extension Comments Strength Comments Difficulty with fine hand coordination or repetitive quick movements of fingers michela . Activities Counselor strength moderate bilaterally. Left hand ability to oppose thumb to middle finger at max. Pt is left dominant. LE strength generally a grade 3 with tremorous movement. Unable to perform repetitive quick movements at ankles. Coordination Assessment Gross Coordination Gross Coordination Impaired Sensation Assessment Comments Sensation Comments Pt denies n&t in UEs. Other Assessments Other Other Assessments O2 95 BP in sitting 113/70, pulse 86 M6 PT-IP Treatment Start: 02/27/19 15:35 Freq: NEEDED Status: Active Protocol: Document 03/03/19 14:44 AB (Rec: 03/03/19 16:16 AB [id number]) Physical Therapy Treatment Education Education Provided Precautions,Safety M7 PT-IP Assessment and Plan Start: 02/27/19 15:35 Freq: NEEDED Status: Active Protocol: Document 03/03/19 14:44 AB (Rec: 03/03/19 16:16 AB [id number]) PT Summary Assessment and Plan Potential Rehabilitation Potential Fair Summary Impairments Pain,ROM,Strength,Balance, Coordination,Sensation,Tone, Cognition,Bed Mobility, Transfers,Gait,Activity Tolerance Progress Towards Goals Slow Progress due to Medical Issues,Slow Progress due to Activity Tolerance Assessment Summary pt requires max Ax 2-3 with all mobilities and unable to tolerate much activity. pt will reqire SNF rehab to improve strength and mobility. Goals Bed Mobility Goal Standby Assistance Transfer Goal Contact Guard Assistance,Front Wheeled Walker Gait Goal Contact Guard Assistance,Front Wheel Walker Gait Distance 50 Other Goals up/down 2 steps without rails CGA Days to Meet Goals 10 Frequency of Treatment Frequency Of Treatment Twice a Day Treatment Plan Physical Therapy Treatment Plan Bed Mobility Training,Transfer Training,Gait Training, Therapeutic Exercise,Balance Retraining,Post Op Education, Coordination Retraining Other Recommendations and Next Treatment ambulate as able, transfers Focus and bed mobilty. Recommendations To Nursing Amount of Assist Needed 3 or More Person Assist Discharge Recommendations PT Discharge Recommendations SNF Rehab Equipment Needed for Home Before FWW if going home Discharge
--- NOTE | 2019-03-03 15:06 | PC.NURSE ---
Day Shift Note Pt sedated on 15 mcg/kg/min of propofol to RASS of -2. Sedation vacation done at 1010, able to follow instructions, anxious. CPAP trial done at 1110 and pt extubated to 4L NC at 1200. Voice intermittently hoarse, intermittent cough noted, assist with oral suctioning necessary at this time. Placed to heated HFNC by RT for added pressure support, setting FiO2 35% and 35L, SpO2 93%. Lungs clear bilaterally. Able to make needs known, call light within reach.
--- NOTE | 2019-03-03 15:10 | OT.IP.TRT ---
Current Diagnoses Other spondylosis with myelopathy, cervical region (02/27/19) Spinal stenosis, cervical region (02/27/19) Surgery Performed Operation Date: 02/27/19 07:45 Actual Procedures p C3-7 anterior discectomy and anterior/posterior instrumentated fusion w/ bone graft - Joo Osullivan MD Operation Date: 03/02/19 18:00 Actual Procedures p Bronchoscopy(Not Applicable) - Jm Verduzco MD Occupational Therapy Treatment Note M2 OT-IP Current Condition Start: 02/27/19 15:37 Freq: Status: Active Protocol: Document 02/28/19 15:53 CGR (Rec: 02/28/19 16:10 CGR [id number]) Occupational Therapy Current Condition Current Condition Evaluation Date 02/28/19 Treatment Diagnosis C3-7 ACDF w bone graft, extubated 02/28, PNA, respiratory failure Diagnosis Onset Date 02/27/19 Post Operative Precautions Cervical Spine Precautions Soft Collar for Comfort,No Heavy Lifting,Log Roll M3 OT- IP Subjective and Pain Start: 02/27/19 15:37 Freq: Status: Active Protocol: Document 03/03/19 15:19 CCC (Rec: 03/03/19 15:31 CCC [email or web address]) OT- Subjective Occupational Therapy Visit Type Type Treatment Note Visit Start Time 14:44 Visit Stop Time 15:10 Total Visit Minutes 26 Occupational Therapy Visit Comments Patient Comments Pt agreed to try to get up from the bed to the recliner. Pt has hcun in place and needing assist dependent for soft collar and socks at this time. M6 OT- IP Functional Cognition Start: 02/27/19 15:37 Freq: Status: Active Protocol: Document 03/03/19 15:19 CCC (Rec: 03/03/19 15:31 [facility] [id number]) Cognitive Factors Limiting Selfcare Function Cognitive Ability Level of Alertness Alert Patient Orientation Name Attention Span Ability Capable of Focused Attention, Unable to Focus Ability to Follow Commands Able to Follow One Step Commands,Able to Follow Multi- Step Commands Cognitive Comments Cognitive Assessment Comments Pt very sleepy and not making eye contact with therapist when answering questions. Pt able to follow one step commands and needing tactile cues to assist for hand placement when coming to stand and sitting down to the recliner. M7 OT- IP Mobility and Balance Start: 02/27/19 15:37 Freq: Status: Active Protocol: Document 03/03/19 15:19 CCC (Rec: 03/03/19 15:31 [facility] [id number]) OT- Bed Mobility Assessment Supine to Sit Supine to Sit Assist Maximum Assistance,2 Person Assistance Scooting Scooting to Edge of Bed Maximum Assistance,2 Person Assistance OT-Transfer Assessment Sit to and From Stand Sit to and from Stand Maximum Assistance,1 Person Assistance Transfers Transfer Ability Maximum Assistance,2 Person Assistance Technique Transfer Destination Bed,Chair Transfer Technique Stand Step Pivot Devices Transfer Assistive Devices Gait Belt,Front Wheeled Walker Comments Mobility Comments Pt needing MAX X2 to come to long sitting and then to help pivot to the edge of the bed. MAX A X@ 2-3 to help stand and transfer to the recliner. Assist to stand assist with multiple cords, assist to guide the walker and for his balance. In addition MAX X 2 to help ease down to the recliner. Pt needing MOD-MAX A for sitting balance at the edge of the bed. OT- Balance Assessment Sitting Balance and Reactions Static Sitting Balance Ability Poor Dynamic Sitting Balance Ability Poor Standing Balance and Reactions Static Standing Balance Ability Poor OT-Muscle Tone Assessment Muscle Tone WNL Yes OT Sensation Assessment Comments Summary Comments No deficits noted Edema Edema Absent M9 OT- IP Assessment and Plan Start: 02/27/19 15:37 Freq: Status: Active Protocol: Document 03/03/19 15:19 [facility] (Rec: 03/03/19 15:31 [facility] [id number]) OT Summary Assessment and Plan Potential Rehabilitation Potential Fair Analytic Complexity at Evaluation Moderate Summary OT Impairments Pain,Range of Motion,Strength, Balance,Coordination, Functional Cognition, Functional Mobility,Self- Feeding,Grooming,Dressing, Toileting,Bathing,Toilet Transfers,Shower Transfers Progress Towards Goals Slow Progress due to Medical Issues,Slow Progress due to Activity Tolerance,Slow Progress due to Cognition Assessment Summary Pt recent intubation for respiratory failure for brochoscopy with suctioning and removal of mucous plugging . Pt just extubated this PM however still status of NPO. Pt now needing MAX A 2-3 for bed mobility and transfer, decreased ability for ADL's and when medically stable would benefit from skilled rehab. Goals Grooming Goal Standby Assistance Dressing Goal Moderate Assistance Toileting Goal Minimal Assistance Bathing Goal Moderate Assistance Toilet Transfer Goal Minimal Assistance Shower Transfer Goal Moderate Assistance Patient/Caregiver Education Goal Demonstrate Post-Op Precautions,Caregiver Independent Assisting Patient Days to Meet Goals 15 Frequency of Treatment Frequency Of Treatment Once a Day Treatment Plan OT Treatment Plan ADL Training,Functional Cognition Training,Functional Mobility,Patient/Family Education,Discharge Planning Discharge Recommendations OT Discharge Recommendations SNF Rehab
--- NOTE | 2019-03-03 15:13 | DIET.PN ---
Dietary Progress Note Pt failed SLT trial, needs nutrition support to support severe PCM. Pt has had significant wt loss in past year so risk for refeeding is high. Recc continuous TF via NG as follows: Glucerna (1.2 Anton) at 70 mL/hr - Start at 20 mL/hr, titrate by 10mL/hr every 4 hours to goal - 200 mL free water flushes every 4 hours (50 mL/hr) -check labs daily for refeeding (Mg, Phos, K+, BG) and supplement as needed Total volume including flushes is 2880mL. full TF reccs outlined below. Nutrition Diagnosis: Acute on Chronic Severe PCM r/t multifactoral etiologies reducing appetite and ability to consume adequate POs aeb pt has end stage COPD, broke ribs in 07/13, depression, on opiate therapies for chronic px, 30% unintentional wt loss in 1y (severe), was intubated, now on bipap in ICU, <50% EERs for 6+mo. Interventions: Patient Metrics Height: 71 in [place] body weight: 75.3 kg (6% below IBW) Actual body weight: 71.1 kg BMI: 21.9 kg/m2 (NHLBI status - Normal) Nutritional dosing weight: 71.1 kg Nutritional Requirements Goal kcal/k kcal/kg Goal protein/k.3 gm/kg Fluid restriction: None Enteral Nutrition Recommendations Glucerna (1.2 Anton) at 70 mL/hr - Start at 20 mL/hr, titrate by 10mL/hr every 4 hours to goal - 200 mL free water flushes every 4 hours (50 mL/hr) - Provides 2016 kcal (28 kcal/kg) and 101 gm (1.4 gm/kg) of protein - Enteral feed and flushes provide 2561 mL (36 mL/kg) of free water -check labs daily for refeeding (Mg, Phos, K+, BG) and supplement as needed Nutritional Monitor Parameters - Elevate head of bed 30-45 degrees while feeding - Check gastric residuals every 4 hours when initiating feeding. May check every 6-8 hours once goal rate is achieved - Hold gastric feeds for residuals more than 500 mL. Avoid holding feeds for residuals < 500 mL without other signs of intolerance Diet Order: general EER: 2100kcal, 92g PRO (1.3g/kg per maln), 2.1L fluids Monitoring/Evaluations: ons tolerance, weight, POs
[2019-03-03 15:26] LABS: pH ABG 7.44 (7.35-7.45)
[2019-03-03 15:57] LABS: HCO3 ABG 33 mmol/L (22-26); Oxygen Saturation ABG 94 % (95-100); PCO2 ABG 41.7 mmHg (35-45); PO2 ABG 63 mmHg (80-100); TCO2 ABG 34 mmol/L (21-31)
[2019-03-03 15:58] LABS: Fractionated Inspired Oxygen 0.35
[2019-03-03] MEDS: POTASSIUM CHLORIDE 40 MEQ in SODIUM CHLORIDE 0.9% 500 ML 130 ML IV (16:44)
--- NOTE | 2019-03-03 16:59 | ST.IPCSEOM ---
Visit Care Team Role Provider Type Rajinder Riddle Primary Care Provider Non-Staff Specialty: Medical Address: [address] , [place], [address] Email: Joo Osullivan MD Admit Provider Physician Attending Provider Specialty: Orthopedic Surgery Address: [address] [place] [address], [place], [address] Email: [email or web address] Current Diagnoses Other spondylosis with myelopathy, cervical region (02/27/19) Spinal stenosis, cervical region (02/27/19) Past Medical History (Last Reviewed 03/02/19 @ 17:43 by Jm Verduzco MD) Anxiety (Acute Medical) Cold feet (Acute Medical) Decreased doctor of naturopathic medicine strength (Acute Medical) Bilateral hands L>R HTN (hypertension) (Acute Medical) Hx of fracture of rib (Acute Medical) summer 2018 Hypothyroidism (Acute Medical) Neck pain (Acute Medical) Perforated bowel (Acute Medical ~2011) portion of small and large bowel resection Rash (Acute Medical) Left hand Sepsis (Acute Medical ~2011) Sleep apnea (Acute Medical) Diagnosed years ago, never used CPAP Speech-Language Pathology Swallow Evaluation MEDIA MANAGER Clinical Swallow Evaluation Start: 03/03/19 16:08 Freq: Status: Active Protocol: Document 03/03/19 16:15 LNK (Rec: 03/03/19 16:45 LNK [email or web address]) Clinical Swallow Evaluation Session Time Visit Start Time 12:45 Visit Stop Time 01:15 Total Visit Minutes 30 Setting Assessment Location Acute Care Visit Type Note Type Initial Evaluation Next Note Type Next Note Type Re-Evaluation Patient Information Identification Type Name,ID Wristband History Patient is a 63-year-old male who is postop day 3 for C3-C4 anterior diskectomy and posterior fusion, hypertension , thyroidism, who we were asked to consult on for management of his acute respiratory failure. The patient was extubated postoperatively, he required re-intubation in the recovery unit. He since has been extubated. Since initial extubation the patient continued to have difficulty with breathing. Pt was reintubated for a bronchoscopy 03/02/19. Today he was again extubated at approximately 1200. Pt was requesting water and swallowing evaluation was ordered to determine safely for PO intake. Subjective Observations Pt was in his bed with his at bedside. He agreed to clinical swallow evaluation. Evaluation Liquids Trialed Ice Chips Oral Phase Comments Pt's OM examination indicated structures and function to be grossly WFL Pharyngeal Impairment Profoundly Impaired Findings Impressions Pt was seated in an upright position in his bed's chair position. OM exam completed. Pt given an ice chip upon which he attempted to swallow with several audible swallow attempts. He appeared to be having difficulty with breathing. nursing was immediately called into the room and began suction. Pt then reported that he could breath again. Swallowing evaluation was halted at that point. Pt was placed on NPO status. Will attempt to do re -eval swallowing tomorrow. Diet Recommendations Liquids Order NPO Diet Order NPO Medication Recommendations Not Recommended by Mouth Treatment Plan MEDIA MANAGER Follow Up re-evaluation
--- NOTE | 2019-03-03 17:06 | PC.NURSE ---
Addendum entered by Evelin Pino R.N. 03/03/19 22:27: 2225 - Pt continues with increased agitation. Mask removed for break. States I want to see your license. I don't trust you and I am getting very nervous. Allow pt to express frustration. Reassurance provided. Hospitalist notified of pt anxiety. Orders obtained. Addendum entered by Evelin Pino R.N. 03/03/19 21:59: 2145 - Pt pulling at mask. Mask removed for break. Pt states why won't anybody be straight with me, my numbers haven't dropped. looking at monitor. Educated to bi-pap and work of breathing. Duoderm to bridge of nose to prevent breakdown. Mask replaced. K-rider complete. Abx infusing. Call light in reach. Bed alarm on. Addendum entered by Evelin Pino R.N. 03/03/19 21:15: 2100 - Pt with bi-pap mask on. Restless, moving around in bed. Intermittently pulling at mask. Reinforced need to leave mask in place. Fio2 35%. Pressure 20/8. Monitor. Addendum entered by Evelin Pino R.N. 03/03/19 20:13: 2010 - Pt resting in bed. Eyes open. Visually, pt respiratory effort increased. Sats 95% on FiO2 35%, flow 35, RR 18, Pt oriented to self and place, disoriented to month and year. Denies pain. Repositioned. RT called to make arrangements for Bi-pap set up. Hospitalist made aware. Addendum entered by Evelin Pino R.N. 03/03/19 19:03: 1830 - Pt again requesting to get up to BSC. Verbalized understanding that a staff member must stay in room with pt to assure safety r/t weakness. Pt with stronger transfer and gait with this activity, however still requires a good amount of assistance to get to full standing position. Pt able to have BM while on commode. Assist back to bed. Pt reports pain, my throat in the front and around to the back of my neck. rates pain 6 of 10. Dilaudid given for pain. Monitor respiratory status. Pt remains on heated high flow, 35% flow of 35. Oral care and suction provided following activity. Call light in reach. Bed alarm on. Addendum entered by Evelin Pino R.N. 03/03/19 17:40: 1740 - Pt states that he needs to go into the bathroom to have BM and requesting to be left alone. Discussed increasing weakness following the days activities. Also reinforced safety and fall precautions. Pt agreeable to attempt bedpan use. Set up on bed bonilla. Call light in reach. Original Note: 1530 - Attempt to place NGT per MD order. Passed through right nare however coiled in back of pt throat. Resulting in bloody right nares. Attempt to pass to left nare. Second attempt at right nare by second RN. Unable to pass NGT. Pt unable to tuck chin and unable to assist with coordinated swallow with attempt to place NGT. Pt sat remained stable at 91% with NC in one nare during procedure. Following attempt to place NGT oral care and suction required. Pt with weak, thick voice. MD notified of inability to place NGT. Possible placement in radiology tomorrow. 1630 - Pt returned to bed, feeling fatigued. However after positioning. Pt reports need to use BSC. Additional transfers increased fatigue requiring more assistance. Shuffling type gait, unsteady. Leaning backwards with activity. 2 person assist, fww and gaitbelt. No results. Educated to safety and call light use. Call light in reach. Bed alarm on.
[2019-03-03] MEDS: LORazepam 2 MG/ML INJ 0.5 MG IV (22:42)
[2019-03-04] VITALS (25 sets, daily range): BP systolic 119–160; BP diastolic 50–95; PULSE 85–105; RESP 12–25; TEMP 37.1–37.7; O2SAT 96–100
[2019-03-04] MEDS: HYDROMORPHONE 0.5 MG INJ IV ×4 (00:14→16:18)
[2019-03-04] MEDS: methylPREDNISolone 125 MG/2 ML VIAL 80 MG IV ×2 (00:37→09:12)
--- NOTE | 2019-03-04 00:59 | RT ---
0030 pt c/o wearing bipap mask and wants to take it off. customer relations representative called and pt placed on hhfnc. spo2 98%
[2019-03-04] MEDS: ALBUTEROL/IPRATROPIUM 3 ML AMPUL INH ×6 (02:08→22:49)
--- NOTE | 2019-03-04 02:27 | PC.NURSE ---
Addendum entered by Leila Campos R.N. 03/04/19 06:09: 0600 -0610 Pt intermittently reaching for BiPAP. Reminding patient that he agreed to wear mask and that would be here early, but states that she has to wait until day light to drive. RT here for treatment and eval. BiPAP 0.35 FiO2, 20/8. O2 sats 100%, RR 20. Addendum entered by Leila Campos R.N. 03/04/19 05:13: [id number] Pt awake and pulling at BiPAP mask. Reinforced with patient the need to leave BiPAP on. Asked patient if pain medicine was needed. Patient nodding when asked if pain medication was needed. Nodding when asked if pain remains at 5/10. Pt medicated with Dilaudid per EMAR. Pt repositioned and RT in for treatment and eval. Assessment completed. 0515 Pt resting with sats 100% on BiPAP at FiO2 0.35. HR 86 RR 20. Original Note: [id number] Pt awake and pulling at Bipap mask. Pt adamant that mask be removed. Pt placed on HHHF 0.45. Noy PARK notified that patient is adamant that he come off of BIPAP and this RN requesting that Noy PARK come to converse with patient about outcomes of not utilizing BIPAP. Pt requesting to call and wanting to use his cell phone. Ultimately, reached at nurses station and agreeable to speak to her about replacing BiPAP. Pt agreeing to replacement of BIPAP with on phone. Noy Chan spoke to on phone regarding need for BIPAP. , Snow, states that she will be in early interventionist, but unable to drive at night. Pt given oral care and after rinsing and suctioning mouth stated that he needed to spit. Pt expectorated tenacious, dark red sputum in moderate amount. Pt c/o neck and back pain 5/10. RT present during discussion with patient, and XAVIER Chan. RT states she will return after patient's repositioning and pain medication becomes effective. O2 sats 98% on HHF at .35. Pt repositoned to L side per and pt's request. Pt dozing. [id number] Pt awake and restless. Patient visably tiring prior to placement of BIPAP with respirations more labored. O2 sats 94-97%. Pt repositoned to R side after rolling onto back. Explanations given regarding need to stay off of back to prevent decubitus formation on buttocks. Pt propped with pillows. 0230 Pt pulling at BIPAP mask. Pt encouraged to leave mask on face with rationale reinforced.
[2019-03-04] MEDS: PIPERACILLIN-TAZO 3.375 GM/50 ML FROZ.PIGGY IV ×3 (04:37→22:11)
[2019-03-04 05:08] LABS: Add Manual Diff / Slide Review NO; Basophils Absolute Auto 0 /uL (0-100); Eosinophils Absolute Auto 0 /uL (0-450); Hematocrit 40.2 % (41-53); Hemoglobin 13.4 g/dL (13.5-17.5); Lymphocytes Absolute Auto 500 /uL (1100-4500); Lymphocytes Percent Auto 5.7 % (25-40); Mean Corpuscular HGB Conc 33.4 % (30-36); Mean Corpuscular Hemoglobin 32.4 PG (26-34); Mean Corpuscular Volume 96.9 fL (80-100); Monocytes Absolute Auto 300 /uL (0-900); Monocytes Percent Auto 4.3 % (3-14); Neutrophils Absolute Auto 7300 /uL (1500-7000); Platelet Count 168 X10^3/uL (150-400); Red Blood Cell Count 4.14 X10^6/uL (4.5-5.9); Red Cell Distribution Width 14.4 % (11.6-14.8); White Blood Cell Count 8.1 X10^3/uL (4.5-11.0)
[2019-03-04 05:20] LABS: B Type Natriuretic Peptide 218 (<100); Blood Urea Nitrogen 33 mg/dL (9-20); Calcium 9.1 mg/dL (8.4-10.2); Carbon Dioxide 35 mmol/L (22-32); Chloride 105 mmol/L (98-107); Estimated Glomerular Filt Rate > 60.0 mL/min (>60); Glucose 114 mg/dL (80-110); HEMOLYSIS < 15 (0-50); Potassium 3.8 mmol/L (3.4-5.1); Sodium 143 mmol/L (137-145)
[2019-03-04] MEDS: BUDESONIDE 0.5 MG/2 ML NEB INH ×2 (06:10→19:23)
--- NOTE | 2019-03-04 08:22 | PM.PNPO.1 ---
Subjective Subjective Date Patient Seen: 03/04/19 Time Patient Seen: 08:22 Interval history: Postop day 5. He was extubated yesterday and has been requiring BiPAP support. He is somewhat confused to location but alert to self and history. He is hungry as he has not eaten in 5 days. Evidently they tried an NG-tube yesterday but there was too much gagging. Could not swallow per speech therapy yesterday. Exam Vital Signs (past 8 hours): - 03/04/19 00:30 03/04/19 01:00 03/04/19 03:00 Temperature Pulse Rate 105 H 87 Respiratory Rate 22 16 Blood Pressure 119/59 L Pulse Oximetry 98 97 99 03/04/19 03:11 03/04/19 04:12 03/04/19 04:26 Temperature 100 F H Pulse Rate 85 Respiratory Rate 16 Blood Pressure Pulse Oximetry 99 100 03/04/19 04:40 03/04/19 04:48 03/04/19 06:00 Temperature 100 F H Pulse Rate 94 H Respiratory Rate 24 Blood Pressure 139/50 L 139/50 L Pulse Oximetry 100 99 03/04/19 07:35 Temperature 98.9 F Pulse Rate 87 Respiratory Rate 16 Blood Pressure 144/82 H Pulse Oximetry 100 Fraction of Inspired Oxygen 35 Oxygen Delivery Method BiPAP Oxygen Flow Rate 35 Const Orientation: alert, awake and oriented to person Other: CDI. 5/5 motor both upper extremities except for 4/5 bilateral manager materials management, 3/5 right intrinsic, 1/5 left intrinsics Objective Labs Result Diagrams: 03/04/19 04:50 03/04/19 04:50 Labs: Laboratory Results - last 24 hr 02/27/19 03/03/19 03/04/19 14:34 11:35 04:50 WBC 8.1 RBC 4.14 L Hgb 13.4 L Hct 40.2 L MCV 96.9 MCH 32.4 MCHC 33.4 RDW 14.4 Plt Count 168 Neut % (Auto) 90.0 H Lymph % (Auto) 5.7 L [place] % (Auto) 4.3 Eos % (Auto) 0.0 L Baso % (Auto) 0.0 Neut # (Auto) 7300 H Lymph # (Auto) 500 L [place] # (Auto) 300 Eos # (Auto) 0 Baso # (Auto) 0 ABG pH 7.44 7.50 H ABG pCO2 41.7 ABG pO2 63 L ABG HCO3 33 H ABG Total CO2 34 H ABG O2 Saturation 94 L ABG Base Excess 9.0 H FiO2 0.35 Sodium Potassium Chloride Carbon Dioxide BUN Creatinine Estimated GFR BUN/Creatinine Ratio Glucose Calcium B-Natriuretic Peptide 218 H 03/04/19 04:50 WBC RBC Hgb Hct MCV MCH MCHC RDW Plt Count Neut % (Auto) Lymph % (Auto) [place] % (Auto) Eos % (Auto) Baso % (Auto) Neut # (Auto) Lymph # (Auto) [place] # (Auto) Eos # (Auto) Baso # (Auto) ABG pH ABG pCO2 ABG pO2 ABG HCO3 ABG Total CO2 ABG O2 Saturation ABG Base Excess FiO2 Sodium 143 Potassium 3.8 Chloride 105 Carbon Dioxide 35 H BUN 33 H Creatinine 0.50 L Estimated GFR > 60.0 BUN/Creatinine Ratio 66.0 H Glucose 114 H Calcium 9.1 B-Natriuretic Peptide Assessment & Plan Post-op Postoperative Procedures: Procedures Operation Date: 02/27/19 07:45 Actual Procedures Side Surgeon p C3-7 anterior discectomy and anterior/posterior instrumentated fusion w/ bone graft Joo Osullivan MD Operation Date: 03/02/19 18:00 Actual Procedures Side Surgeon p Bronchoscopy Not Applicable Jm Verduzco MD He is progressing after being extubated again yesterday. We need to consider nutritional options for him. We will have speech therapy work with him again this morning to see how his swallowing reflex functions. If not, will need to consider supplemental options. I'm not sure if he would be able to tolerate an NG-tube again. He may require TPN.
--- NOTE | 2019-03-04 08:33 | OT.IP.TRT ---
Current Diagnoses Other spondylosis with myelopathy, cervical region (02/27/19) Spinal stenosis, cervical region (02/27/19) Surgery Performed Operation Date: 02/27/19 07:45 Actual Procedures p C3-7 anterior discectomy and anterior/posterior instrumentated fusion w/ bone graft - Joo Osullivan MD Operation Date: 03/02/19 18:00 Actual Procedures p Bronchoscopy(Not Applicable) - Jm Verduzco MD Occupational Therapy Treatment Note M2 OT-IP Current Condition Start: 02/27/19 15:37 Freq: Status: Active Protocol: Document 02/28/19 15:53 CGR (Rec: 02/28/19 16:10 CGR [id number]) Occupational Therapy Current Condition Current Condition Evaluation Date 02/28/19 Treatment Diagnosis C3-7 ACDF w bone graft, extubated 02/28 Diagnosis Onset Date 02/27/19 Post Operative Precautions Cervical Spine Precautions Soft Collar for Comfort,No Heavy Lifting,Log Roll M3 OT- IP Subjective and Pain Start: 02/27/19 15:37 Freq: Status: Active Protocol: Document 03/04/19 08:31 CCC (Rec: 03/04/19 08:32 CCC [id number]) OT- Subjective Occupational Therapy Visit Type Type Administrative Note Notes Per nursing would like for pt to rest, see BELT BACK OPERATOR first, and try to see pt in the PM for OT /PT.
[2019-03-04] MEDS: ENOXAPARIN 40 MG/0.4 ML SYRINGE SUBCUT (09:11)
[2019-03-04] MEDS: FAMOTIDINE 20 MG/50 ML PIGGYBACK 200 MG IV ×2 (09:12→20:37)
[2019-03-04] MEDS: NICOTINE 21 MG PATCH TOP (09:12)
--- NOTE | 2019-03-04 10:55 | PM.PN.1 ---
Subjective Subjective Date Patient Seen: 03/04/19 Interval history: The patient is a 63 year old male who is status post anterior cervical fusion and diskectomy. Patient had postoperative complications requiring re-intubation. He ultimately was found to have bibasilar infiltrates in addition to mucus plugging. Was electively intubated and had a suctioning of mucus plugs with improvement of his respiratory status. He was extubated yesterday and has been doing well. The patient had uneventful night. Attempts were made for an NG placement last evening and were unsuccessful. The patient does not have a central line in place and therefore TPN is unable to be started at this time. Discussed with speech pathology today. They will re-evaluate his swallowing today. If the patient is unable to swallow will place a PICC line and start TPN. Overall he is doing much better. He did require BiPAP last evening. He is sitting up on high-flow oxygen tolerating it well. Patient describes being hungry. He has no pain at this time Exam Vital Signs (past 8 hours): - 03/04/19 03:00 03/04/19 03:11 03/04/19 04:12 Temperature Pulse Rate 87 85 Respiratory Rate 16 16 Blood Pressure Pulse Oximetry 99 99 100 03/04/19 04:26 03/04/19 04:40 03/04/19 04:48 Temperature 100 F H 100 F H Pulse Rate 94 H Respiratory Rate 24 Blood Pressure 139/50 L 139/50 L Pulse Oximetry 100 03/04/19 06:00 03/04/19 07:35 03/04/19 08:00 Temperature 98.9 F 98.9 F Pulse Rate 87 100 H Respiratory Rate 16 15 Blood Pressure 144/82 H 156/90 H Pulse Oximetry 99 100 100 Fraction of Inspired Oxygen 35 Oxygen Delivery Method BiPAP Oxygen Flow Rate 35 Narrative Exam Narrative: Pleasant male sitting in bed in no obvious distress HEENT: Normocephalic atraumatic sclerae anicteric posterior cervical inter cervical dressing in place without exudate, patient is now on high-flow oxygen Lungs: Decreased breath sounds but clear Cardiac exam: Regular rate and rhythm normal S1-S2, tachycardic Abdomen: Soft nontender nondistended Extremities: No edema Objective Labs Result Diagrams: 03/04/19 04:50 03/04/19 04:50 Labs: Laboratory Results - last 24 hr 0103/03/19 03/04/19 14:34 11:35 04:50 WBC 8.1 RBC 4.14 L Hgb 13.4 L Hct 40.2 L MCV 96.9 MCH 32.4 MCHC 33.4 RDW 14.4 Plt Count 168 Neut % (Auto) 90.0 H Lymph % (Auto) 5.7 L [place] % (Auto) 4.3 Eos % (Auto) 0.0 L Baso % (Auto) 0.0 Neut # (Auto) 7300 H Lymph # (Auto) 500 L [place] # (Auto) 300 Eos # (Auto) 0 Baso # (Auto) 0 ABG pH 7.44 7.50 H ABG pCO2 41.7 ABG pO2 63 L ABG HCO3 33 H ABG Total CO2 34 H ABG O2 Saturation 94 L ABG Base Excess 9.0 H FiO2 0.35 Sodium Potassium Chloride Carbon Dioxide BUN Creatinine Estimated GFR BUN/Creatinine Ratio Glucose Calcium B-Natriuretic Peptide 218 H 03/04/19 04:50 WBC RBC Hgb Hct MCV MCH MCHC RDW Plt Count Neut % (Auto) Lymph % (Auto) [place] % (Auto) Eos % (Auto) Baso % (Auto) Neut # (Auto) Lymph # (Auto) [place] # (Auto) Eos # (Auto) Baso # (Auto) ABG pH ABG pCO2 ABG pO2 ABG HCO3 ABG Total CO2 ABG O2 Saturation ABG Base Excess FiO2 Sodium 143 Potassium 3.8 Chloride 105 Carbon Dioxide 35 H BUN 33 H Creatinine 0.50 L Estimated GFR > 60.0 BUN/Creatinine Ratio 66.0 H Glucose 114 H Calcium 9.1 B-Natriuretic Peptide Assessment & Plan Assessment & Plan narrative: Impression 1. Acute respiratory failure, improving -patient was successfully extubated yesterday -he is status post bronchoscopy with removal of mucus plugging -suspect the patient has underlying COPD that has not previously been treated -hospital-acquired pneumonia likely contributing to his pulmonary dysfunction -will continue IV antibiotics -will continue high-flow oxgen 2. Healthcare associated pneumonia -patient was found to have bibasilar infiltrates on CT scan 48 hours after admission -given recent surgery and being in the hospital continue Zosyn as above 3. Probable COPD -patient with a greater than 40 pack-year history of smoking -will continue IV steroid, oxygen and nebulizer -will taper steroids at this time -recommend outpatient pulmonary function studies -recommend outpatient sleep study -continue BiPAP at night or as needed 4. Hypertension -continue lisinopril 5. Hypothyroid -continue L-thyroxine 6. Severe protein calorie malnutrition -will initiate oral feeding today if patient swallow eval has improved -if he remains a high risk of aspiration will place a PICC line for TPN 7. Continue DVT prophylaxis 8. Discontinue Mcdaniel catheter today
--- NOTE | 2019-03-04 11:11 | CM.DPC ---
DCP/continued: Reviewed chart. Per provider in AM rounds, patient currently extubated. UNISHEAR OPERATOR met briefly with patient's spouse/Snow re: SNF choice. UNISHEAR OPERATOR received phone calls from both [facility] and [email or web address] indicating that they most likely can accept if they can obtain authorization from [facility]. Spouse reports that she has not had a chance to tour the facilities but that she has spoken with family and that her current first SNF choice is [facility]. Asked NASEEM/Jazmin to fax updated clinicals to [facility]. Spoke with both [email or web address] and [facility] indicating that first choice is [facility]. [email or web address] in agreement to hold onto clinical in case choice changes. At this time d/c date unknown. Patient POD#5 from cervical fusion surgery with Dr. Osullivan. Unfortunately, patient has undergone medical complications while recovering. Hospitalist involved. P: First SNF choice is [facility]. Asked NASEEM/Jazmin to fax updated clinical. D/C date unknown at this time. PASRR completed. MARIA Sultana
--- NOTE | 2019-03-04 11:30 | ST.IPCSEOM ---
Speech-Language Pathology Swallow Evaluation [facility] Clinical Swallow Evaluation Start: 03/03/19 16:08 Freq: Status: Active Protocol: Document 03/04/19 14:14 TLC (Rec: 03/04/19 14:31 TLC [id number]) Clinical Swallow Evaluation Session Time Visit Start Time 10:30 Visit Stop Time 11:15 Total Visit Minutes 45 Visit Information Visit Number 2 Setting Assessment Location Acute Care Visit Type Note Type Re-Evaluation Next Note Type Next Note Type Treatment Note Patient Information Identification Type Name History Patient NPO pending swallow re -evaluation after doing poorly with ice chip trial yesterday . Here for medical complications post ACD sx with multiple intubations/ extubations. Subjective Observations Patient off of Bipap, on heated high flow oxygen, sitting up in chair in room with present. Alert, oriented and following directions. Patient has not had PO intake in >5 days. Did not tolerate NG tube placement yesterday. Evaluation Liquids Trialed Ice Chips,Thin Oral Phase Comments Patient has sparse lower dentition with no upper dentition. Oral motor examination demonstrates adequate lingual, labial and buccal strength and range of motion. Oral mucosa was pink and moist with no debris noted in oral cavity. Ice chips and sips of water were administered by the clinician for bolus size control. Oral acceptance was adequate. Pharyngeal Phase Comments Throat clear and cough were weak and unproductive and voice was low and weak. Patient initially had difficulty initiating dry swallow, requesting a moist sponge. With moist sponge, patient swallowed 3 times and was then able to perform dry saliva swallows. Patient's swallow was significantly audible which is not his baseline per . Patient consumed multiple tsp sips of water and ice chips with occasional throat clear and weak cough. No further textures trialed due to patient's high risk for aspiration. Verbal and written education provided regarding free water protocol as well as aspiration risks/precautions. Patient and were in agreement. Findings Impressions Patient is highly motivated to eat/drink by mouth. He was able to swallow tsp sips of water and ice chips ~20+ times during the evaluation; however, remains at high risk for aspiration which cannot be detected at bedside. He is a good candidate for free water protocol given good oral hygiene and compliance with recommendations. A Modified Barium Swallow Study is recommended in order to assess pharyngeal function and identify absence/presence of aspiration prior to initiating a diet. This has been scheduled for 10:30am tomorrow morning. Verbal and written education were provided regarding free water protocol as well as aspiration risks/precautions. Patient and verbalized understanding and were in agreement. Nursing, Qc Lab Technician, MD and RT all updated with plan and in agreement. Diet Recommendations Liquids Order Free Water Protocol Medication Recommendations Not Recommended by Mouth Aspiration Precautions Recommended Precautions Upright at 90 Degrees,Small Bites/Sips Additional Precautions Tsp sips of water only Treatment Plan Appropriate for Therapy Yes Therapy Recommendations MBS tomorrow to evaluate pharyngeal swallow function and guide plan of care. Dysphagia Goals [place] will comply with recommendations for ice chips, single sips of water only in accordance with free water protocol to increase quality of life while awaiting instrumental swallow evaluation. [facility]ER[facility] Follow Up [facility] [place] 10:30am on 03/05
--- NOTE | 2019-03-04 11:58 | DIET.PN ---
Addendum entered by Ayde Jaeger 03/04/19 12:16: total daily volume goal feed rate plus free water is 2100mL. Original Note: Dietary Progress Note RD f/u: Pt set to have MBSS on 03/05 as SLT unsure safety of pt's PO intake, currently NPO c sips of water and ice chips. Pt hx of 30% unintentional wt loss in 1 year as well as inadequate oral intake while recovering from cervical fusion, pt has severe PCM. Nursing unable to drop NG tube successfully yesterday, unable to use NG tube c pt's intermittent need for bipap. Pt in need of nutrition support and TPN is only realistic option at this time which requires central line placement. If pt passes MBSS, unlikely he will be able to meet his EERs solely through POs as he is quite deconditioned and requiring high flow o2/bipap. Pt at high risk for refeeding, please titrate TPN slowly c checks of Mg, Phos, and K+ labs daily for first three days and replete as necessary as these likely to drop when feeding initiated. Recc continuous central TPN starting at 15mL/hr for first 12h, titrating up by 10mL q8h as tolerated, watching labs for refeeding. Goal rate is 75mL/hr with no PO intake, adding 250mL IVFE on M, W, F to supplement essential fatty acids and 300mL/d free water. Goal formula provides 1800mL fluids, 1795kcal (85% needs), 75g PRO (82% needs). HT: 180.3cm WT: 74kg UBW: 100kg BMI: 22.8 MNA: 5 malnourished Ammon: 15 Nutrition Diagnosis: Acute on Chronic Severe PCM r/t multifactoral etiologies reducing appetite and ability to consume adequate POs aeb pt has end stage COPD, broke ribs in 07/13, depression, on opiate therapies for chronic px, 30% unintentional wt loss in 1y (severe), was intubated, now on bipap in ICU, <50% EERs for 6+mo. Interventions: recc continuous central TPN starting at 15mL/hr per ICU status and severe PCM c high risk for refeeding. Diet Order: NPO EER: 2100kcal, 92g PRO (1.3g/kg), 2.1L fluids Monitoring/Evaluations: following daily
--- NOTE | 2019-03-04 13:36 | PC.NURSE ---
Day Shift Note Pt switched from bipap to heated HFNC at pt's request, RT at bedside. Settings at 40L and 30% FiO2, sPo2 98-100% all shift. Lungs decreased bilaterally. Instructed to cough and deep breathe, using IS with assist. Able to use yankauer independently to assist in clearing secretions. Reports feeling very hungry. Pain to anterior neck 3/10 this AM and pt received Dilaudid 0.5 mg IV. Up to chair 2 person assist, exhibited good balance and required minimal assist once standing with FWW. Speech therapy evaluated pt at bedside. Continues NPO except for ice chips and teaspoons of water, has a very audible swallow, cough noted periodically after swallowing ice chips/water. MBS ordered for tomorrow. Dr. Lucas updated speech therapy results and was updated on oxygenation requirements and current respiratory status on morning rounds. Pt is oriented to self, place, and situation. Able to makes needs known and using call light appropriately.
--- NOTE | 2019-03-04 14:25 | OT.IP.TRT ---
Current Diagnoses Other spondylosis with myelopathy, cervical region (02/27/19) Spinal stenosis, cervical region (02/27/19) Surgery Performed Operation Date: 02/27/19 07:45 Actual Procedures p C3-7 anterior discectomy and anterior/posterior instrumentated fusion w/ bone graft - Joo Osullivan MD Operation Date: 03/02/19 18:00 Actual Procedures p Bronchoscopy(Not Applicable) - Jm Verduzco MD Occupational Therapy Treatment Note M2 OT-IP Current Condition Start: 02/27/19 15:37 Freq: Status: Active Protocol: Document 02/28/19 15:53 CGR (Rec: 02/28/19 16:10 CGR [email or web address]) Occupational Therapy Current Condition Current Condition Evaluation Date 02/28/19 Treatment Diagnosis C3-7 ACDF w bone graft, extubated 02/28 Diagnosis Onset Date 02/27/19 Post Operative Precautions Cervical Spine Precautions Soft Collar for Comfort,No Heavy Lifting,Log Roll M3 OT- IP Subjective and Pain Start: 02/27/19 15:37 Freq: Status: Active Protocol: Document 03/04/19 14:54 CCC (Rec: 03/04/19 15:09 CCC [email or web address]) OT- Subjective Occupational Therapy Visit Type Type Treatment Note Visit Start Time 14:25 Visit Stop Time 14:50 Total Visit Minutes 25 Occupational Therapy Visit Comments Patient Comments Pt agreeable to work with OT, getting tired and wanting to get back to bed. OT Pain Assessment Pain When Pain Assessed At Rest Pain Present Pain Present Denied Pain M4 OT- IP ADL's Start: 02/27/19 15:37 Freq: Status: Active Protocol: Document 03/04/19 14:54 CCC (Rec: 03/04/19 15:09 CCC [email or web address]) OT [id number] Comments OT Self-Feeding Comments Pt still NPO. OT ADL-Grooming Comments OT Grooming Comments Per nursing pt has been able to swab his mouth and suction himself on his own. OT ADL-Dressing General Eval Lower Body Dressing Ability Maximum Assistance Areas Needing Assistance Socks Assistive Devices Dressing Assistive Devices Ballistic Technician,Sock Aid Comments OT Dressing Comments Able to do gentle stretching for hip flexors so able to increase ROM and active movement to be able to lift his leg and cross it over without use of hands for assist. After treatment pt able to cross his right leg over and still needing MIRIAN for left leg at this time. Pt able to doff his socks. Showed pt LB dressing equipment and pt states good understanding for use to practice more tomorrow. OT ADL-Toileting General Evaluation Toileting Ability Total Assistance Comments OT Toileting Comments [place] in place. M5 OT- IP IADL's Start: 02/27/19 15:37 Freq: Status: Active Protocol: Document 02/28/19 15:53 CGR (Rec: 02/28/19 16:10 CGR [email or web address]) OT-Instrumental Activities of Daily Living Deficits IADL Deficits Identified Deficits Home Safety Awareness Awareness of Need for Assistance at Home Good Awareness Ability to Problem Solve Emergency Able to Problem Solve Situations M6 OT- IP Functional Cognition Start: 02/27/19 15:37 Freq: Status: Active Protocol: Document 03/04/19 14:54 CCC (Rec: 03/04/19 15:09 CCC [email or web address]) Cognitive Factors Limiting Selfcare Function Cognitive Ability Level of Alertness Alert Patient Orientation Name,Place,Situation Attention Span Ability Capable of Focused Attention, Capable of Sustained Attention Ability to Follow Commands Able to Follow One Step Commands Safety Awareness Underestimates Need for Assistance Cognitive Comments Cognitive Assessment Comments Pt able to follow directions for transfer and bed mobility better today however still needing cues for safety awareness to push up from the FWW. Pt may benefit from formal cognitive testing tomorrow. M7 OT- IP Mobility and Balance Start: 02/27/19 15:37 Freq: Status: Active Protocol: Document 03/04/19 14:54 CCC (Rec: 03/04/19 15:09 CCC [email or web address]) OT- Bed Mobility Assessment Sit to Supine Sit to Supine Assist Minimal Assistance,1 Person Assistance OT-Transfer Assessment Sit to and From Stand Sit to and from Stand Moderate Assistance,2 Person Assistance Transfers Transfer Ability Moderate Assistance,1 Person Assistance Technique Transfer Destination Bed,Chair Transfer Technique Stand Step Pivot Devices Transfer Assistive Devices Gait Belt,Front Wheeled Walker Comments Mobility Comments MODA X 2 to stand and afterwards MODA x 1 however another person to assist with all IV/cords. Pt too tired and just wanting to get back to bed. OT- Balance Assessment Sitting Balance and Reactions Static Sitting Balance Ability Good Dynamic Sitting Balance Ability Fair Standing Balance and Reactions Static Standing Balance Ability Fair M8 OT- IP Objective Assessments Start: 02/27/19 15:37 Freq: Status: Active Protocol: Document 02/28/19 15:53 CGR (Rec: 02/28/19 16:10 CGR [email or web address]) OT Gross Range of Motion Upper Extremity Range of Motion Assessment Within Functional Limits OT Strength Upper Extremity Strength Assessment Within Functional Limits OT-Muscle Tone Assessment Muscle Tone WNL Yes OT Sensation Assessment Comments Summary Comments No deficits noted Edema Edema Absent M9 OT- IP Assessment and Plan Start: 02/27/19 15:37 Freq: Status: Active Protocol: Document 03/04/19 14:54 CCC (Rec: 03/04/19 15:09 CCC [email or web address]) OT Summary Assessment and Plan Potential Rehabilitation Potential Fair Analytic Complexity at Evaluation Moderate Summary OT Impairments Pain,Range of Motion,Strength, Balance,Coordination, Functional Cognition, Functional Mobility,Self- Feeding,Grooming,Dressing, Toileting,Bathing,Toilet Transfers,Shower Transfers Progress Towards Goals Progressing Toward Goals Assessment Summary Pt following directions better today and needing less assistance for functional mobility needs. Pt still on hi -flow and limited to distance able to move. Pt still far form baseline and will benefit from skilled rehab prior to going home. Goals Grooming Goal Independent Dressing Goal Standby Assistance Toileting Goal Standby Assistance Bathing Goal Minimal Assistance Toilet Transfer Goal Contact Guard Assistance Shower Transfer Goal Minimal Assistance Patient/Caregiver Education Goal Demonstrate Post-Op Precautions,Caregiver Independent Assisting Patient Days to Meet Goals 10 Frequency of Treatment Frequency Of Treatment Once a Day Treatment Plan OT Treatment Plan ADL Training,Functional Cognition Training,Functional Mobility,Patient/Family Education,Discharge Planning Other Treatment Recommendations and Next SLUMs Treatment Focus Discharge Recommendations OT Discharge Recommendations SNF Rehab
--- NOTE | 2019-03-04 15:12 | PT.IPTN ---
Current Diagnoses Other spondylosis with myelopathy, cervical region (02/27/19) Spinal stenosis, cervical region (02/27/19) Surgery Performed Operation Date: 02/27/19 07:45 Actual Procedures p C3-7 anterior discectomy and anterior/posterior instrumentated fusion w/ bone graft - Joo Osullivan MD Operation Date: 03/02/19 18:00 Actual Procedures p Bronchoscopy(Not Applicable) - Jm Verduzco MD Physical Therapy Treatment Note M2 PT-IP Current Condition Start: 02/27/19 15:35 Freq: NEEDED Status: Active Protocol: Document 02/28/19 14:48 NFW (Rec: 02/28/19 15:29 NFW [id number]) Physical Therapy Current Condition Current Condition Evaluation Date 02/28/19 Treatment Diagnosis Cervical stenosis with myelopathy, s/p C3-8 post fusion and ACDF Precautions Cervical Spine Precautions Soft Collar for Comfort,No Heavy Lifting,Log Roll Brace Soft collar Weight Bearing Status Weight Bearing Status Full Weight Bearing M3 PT-IP Subjective Start: 02/27/19 15:35 Freq: NEEDED Status: Active Protocol: Document 03/04/19 14:41 LJ (Rec: 03/04/19 15:12 LJ [id number]) Subjective Physical Therapy Visit Type Type Treatment Note Visit Start Time 14:41 Visit Stop Time 14:50 Total Visit Minutes 11 Notes Pt in chair with OT. Pt requested to get back into bed . PT assisted OT in getting pt back into bed. Physical Therapy Visit Comments Patient Comments unwilling to do PT due to fatigue. M4 PT-IP Mobility and Gait Start: 02/27/19 15:35 Freq: NEEDED Status: Active Protocol: Document 03/04/19 14:41 LJ (Rec: 03/04/19 15:12 LJ [id number]) PT-Bed Mobility Assessment Rolling Type of Rolling Roll to Left Level of Assist Minimal Assistance,2 Person Assistance Sit to Supine Sit to Supine Minimal Assistance,1 Person Assistance Scooting Scooting Up and Down in Bed Moderate Assistance PT-Transfer Assessment Sit to and From Stand Sit to and from Stand Moderate Assistance,2 Person Assistance,Use of Upper Extremities Equipment Transfer Assistive Device Gait Belt,Front Wheeled Walker Orthotic/Prosthetic Devices or Brace: Yes Transfers Transfer Destination Chair Transfer Technique Stand Step Pivot Transfer Ability Level of Assist Moderate Assistance,2 Person Assistance,Use of Upper Extremities Comments Mobility Comments Pt in chair requesting to return to bed. ModA x2 for line management and stabilization of pt once standing. Pt did not require much assistance to stand, more so, guidance. Able to follow instructions with hand placement for transfers and bed mobility. Pt was Josiane for bed mobility be8ing able to logroll and lift his legs onto the be. PT assisted with guiding LEs onto bed to clear Mcdaniel line. Pt able to bridge to position in center of bed and he also was able to assist with LEs in scooting him to the head of bed. Gait Assessment Gait Gait Assistance Required: Moderate Assistance,2 Person Assist Distance (Feet) 2 Able to Maintain Weight Bearing Status Yes During Gait Assistive Devices Assistive Device Gait Belt,Front Wheeled Walker Orthotic/Prosthetic Devices or Brace: No Factors Limiting Gait Function Factors Limiting Gait Function Decreased Strength,Limited Range of Motion,Poor Balance, Poor Safety Awareness, Respiratory Distress Comments Gait Comments Pt stood from chair and took three steps in a step pivot manner to the bed. Mod assist for lines and balance but pt was steady on his feet. CGA for pt, ModA for line handling M5 PT-IP Objective Assessments Start: 02/27/19 15:35 Freq: NEEDED Status: Active Protocol: Document 02/28/19 14:48 NFW (Rec: 02/28/19 15:29 NFW [id number]) Orientation Orientation/Cognition Level of Alertness Lethargic Orientation Name,Place,Situation Language Function Ability Garbled Speech Safety Awareness Decreased Safety Awareness Gross Range of Motion Upper Extremity ROM Assessment Bilaterally Impaired Impairments AROM against gravity in flexion <90 degrees; abduction ~60 degrees with right weaker . AAROM against gravity in flexion to ~120 degrees; abduction to 90 degrees with right weaker. Lower Extremity ROM Impairments ROM LEs functional. Strength Upper Extremity Strength Assessment Bilaterally Impaired Shoulder 3/5 Elbow 4/5 Wrist 4/5 Hand 3/5 Lower Extremity Strength Assessment Bilaterally Impaired Hip 3/5 in flexion Knee 3+/5 in extension Comments Strength Comments Difficulty with fine hand coordination or repetitive quick movements of fingers michela . Mortgage Loan Processing Clerk strength moderate bilaterally. Left hand ability to oppose thumb to middle finger at max. Pt is left dominant. LE strength generally a grade 3 with tremorous movement. Unable to perform repetitive quick movements at ankles. Coordination Assessment Gross Coordination Gross Coordination Impaired Sensation Assessment Comments Sensation Comments Pt denies n&t in UEs. Other Assessments Other Other Assessments O2 95 BP in sitting 113/70, pulse 86 M6 PT-IP Treatment Start: 02/27/19 15:35 Freq: NEEDED Status: Active Protocol: Document 03/03/19 14:44 AB (Rec: 03/03/19 16:16 AB [id number]) Physical Therapy Treatment Education Education Provided Precautions,Safety M7 PT-IP Assessment and Plan Start: 02/27/19 15:35 Freq: NEEDED Status: Active Protocol: Document 03/04/19 14:41 LJ (Rec: 03/04/19 15:12 LJ [id number]) PT Summary Assessment and Plan Potential Rehabilitation Potential Fair Status of Condition at Evaluation Evolving Summary Impairments Pain,ROM,Strength,Balance, Coordination,Sensation,Tone, Cognition,Bed Mobility, Transfers,Gait,Activity Tolerance Progress Towards Goals Slow Progress due to Medical Issues,Slow Progress due to Activity Tolerance Assessment Summary pt requires ModA x2 for bed mobility and transfers due to the number of lines that need to be managed. For balance and steps, pt requires CGA-Josiane. Pt able to stand with no LOB but due to fatigue pt returned to bed. Until he is free from O2 restriction he will not be able to ambulate outside of the room. He fatigues quickly but is steady on his feet and has strength to sit<>stand and move in bed CGA-Josiane Goals Bed Mobility Goal Standby Assistance Transfer Goal Contact Guard Assistance,Front Wheeled Walker Gait Goal Contact Guard Assistance,Front Wheel Walker Gait Distance 50 Other Goals up/down 2 steps without rails CGA Days to Meet Goals 10 Frequency of Treatment Frequency Of Treatment Twice a Day Treatment Plan Physical Therapy Treatment Plan Bed Mobility Training,Transfer Training,Gait Training, Therapeutic Exercise,Balance Retraining,Post Op Education, Coordination Retraining Other Recommendations and Next Treatment ambulate as able, transfers Focus and bed mobility. Recommendations To Nursing Amount of Assist Needed 2 Person Assist Discharge Recommendations PT Discharge Recommendations SNF Rehab
--- NOTE | 2019-03-04 15:48 | DI.RAD.S_ITS ---
PROCEDURE: XR CHEST FOR PICC 1V INDICATIONS: PICC Placement TECHNIQUE: One view of the chest was acquired. COMPARISON: [facility], CR, XR CHEST 1V, 03/02/2019, 18:13. [facility], CR, XR CHEST 1V, 03/02/2019, 10:03. FINDINGS: Surgical changes and devices: PICC line from a left-sided approach extends into the distal SVC. Lungs and pleura: Lungs are abnormal with a retrocardiac left lower lobe pneumonia pattern, densely consolidated, and also with a mild degree of alveolar infiltration in the medial right lung base. No pleural effusions or pneumothorax. Mediastinum: Mediastinal contours appear normal. Heart size is normal. Bones and chest wall: No suspicious bony lesions. Overlying soft tissues appear unremarkable. IMPRESSION: Bibasilar pneumonia, left greater than right. No pleural effusion seen. PICC line positioning normal, into the distal SVC. Dictated by: Edouard Snider M.D. on 03/04/2019 at 16:11 Approved by: Edouard Snider M.D. on 03/04/2019 at 16:11
[2019-03-04] MEDS: AA 5 %/CALCIUM/LYTES/DEXT 20 % 1,000 ML with MULTIVITAMIN 10 ML, TRACE ELEMENTS 1 ML, P... 15 ML IV (17:48)
[2019-03-04] MEDS: FAT EMULSIONS 50 GM/250 ML EMULSION IV (17:48)
--- NOTE | 2019-03-04 18:36 | PC.NURSE ---
Addendum entered by Evelin Pino R.N. 03/04/19 22:56: 2130 - Assisted up to BSC. Expressing agitation with situation. I had a gallbladder surgery, and nothing bad happened then. Reassurance provided. Pt continues to decline side lying, turn to side and pt returns to back. Remains on HHF FIO2 32%, flow 40. Refusing SCD's. Using call light appropriately. Bed alarm on. Addendum entered by Evelin Pino R.N. 03/04/19 19:59: 1945 - Pt repositioned for linen change. Requesting to return to semi-high garcia's so that he can read. Declines side lying. Waffle cushion in place. Barrier cream applied. Lung sounds continue to be diminished throughout, significantly in the bases, Left greater than Right. Intermittent weak cough, using oral suction independently. Call light in reach. Bed alarm on. Original Note: 1819 - Pt used call light. Requesting bathroom. Assist up to BSC. Improved strength in transfer from yesterday. Void. Assist back to bed. Heated High flow 35% flow rate 40. Sats 96% following activity. Pt request supine position. Waffle cushion in place. Educated to skin integrity. Pt able to shift hips. Bed alarm on.
[2019-03-05] VITALS (18 sets, daily range): BP systolic 154–190; BP diastolic 69–119; PULSE 68–97; RESP 15–32; TEMP 36.6–37.6; O2SAT 93–100
--- NOTE | 2019-03-05 01:03 | PC.NURSE ---
Addendum entered by Ana Hernandez R.N. 03/05/19 03:44: Pt reports that he see brown stuff coming out of the bipap mask and floating in the air. He stated that he wants the doctor to explain why he should use the bipap. XAVIER Castro notified. Pt refusing bipap at this time and placed back on heated high flow NC. Addendum entered by Ana Hernandez R.N. 03/05/19 02:28: Pt has stated several times so far this shift that he is anxious and he does want to , that he is to young to and that he is afraid that he will not make it back home with his . Emotional support and reassurance given, notified the hospitalist, XAVIER Castro. Received orders for Melatonin and Buspar, both have been given. Bipap in place, ABG done as ordered by RT. Original Note: NOC Note: Pt reported feeling like he wasn't breathing as well as he had been, stated that he was anxious and did not like the Bi-pap was wanted to try it for a while. RT notified and he was put on Bi-pap at 0100.
[2019-03-05 01:31] LABS: pH ABG 7.39 (7.35-7.45)
[2019-03-05 01:32] LABS: Fractionated Inspired Oxygen 35; HCO3 ABG 41 mmol/L (22-26); Oxygen Saturation ABG 91 % (95-100); PCO2 ABG 68.6 mmHg (35-45); PO2 ABG 64 mmHg (80-100); TCO2 ABG 43 mmol/L (21-31)
[2019-03-05] MEDS: MELATONIN 3 MG TABLET 6 MG PO (01:58)
--- NOTE | 2019-03-05 01:59 | P.PN_ITS ---
Subjective Subjective Date Patient Seen: 03/05/19 Time Patient Seen: 01:59 Interval history: Received call from patient's nurse with following information... Patient felt like he had difficulty breathing and wanted to go back on BiPAP. There is concern about concurrent anxiety. I'm being made aware that he has received lorazepam for anxiety several days ago. ABG was requested... pH 7.39 pCO2 68.6 PO2 64 HC03 41 ABG was being done after patient was placed on BiPAP, 5-10 min There's degree of respiratory acidosis, however patient is compensating at this time. Given underlying h/o suspected COPD/CONSUELO, rising pCO2 level and a recent pulmonary events associated with this hospitalization it would not be unreasonable to place patient on BiPAP overnight. In regard to patient's anxiety. At this time will not pursue benzodiazepines. At present time patient is receiving gabapentin and hydromorphone. Will avoid benzodiazepines in an effort to avoid profound sedation and sequela of respiratory depression in a patient with an acute illness and recent pulmonary complications as well as suspected h/o COPD and CONSUELO. Patient has received lorazepam during this hospital admission, it appears initially it may have been given as a part of CIWA protocol and later on intermittent bases (perhaps for anxiety ??) Patient will be started on buspirone 10 mg b.i.d. for anxiety, it may be continued or stopped at time of discharge. I will also add 6 mcg of melatonin as a sleep aid. Exam Vital Signs (past 8 hours): - 03/04/19 18:35 03/04/19 19:23 03/04/19 20:00 Temperature 98.7 F Pulse Rate 97 H 98 H Respiratory Rate 12 16 Blood Pressure 156/94 H Pulse Oximetry 96 98 03/04/19 22:49 03/04/19 23:52 03/05/19 00:01 Temperature 99.2 F Pulse Rate 105 H 103 H Respiratory Rate 25 H 23 Blood Pressure 160/79 H Pulse Oximetry 99 100 100 Fraction of Inspired Oxygen 30 Oxygen Delivery Method High Flow Nasal Cannula Oxygen Flow Rate 35 Objective Labs Result Diagrams: 03/04/19 04:50 03/04/19 04:50 Labs: Laboratory Results - last 24 hr 03/04/19 03/04/19 03/05/19 04:50 04:50 01:10 WBC 8.1 RBC 4.14 L Hgb 13.4 L Hct 40.2 L MCV 96.9 MCH 32.4 MCHC 33.4 RDW 14.4 Plt Count 168 Neut % (Auto) 90.0 H Lymph % (Auto) 5.7 L [place] % (Auto) 4.3 Eos % (Auto) 0.0 L Baso % (Auto) 0.0 Neut # (Auto) 7300 H Lymph # (Auto) 500 L [place] # (Auto) 300 Eos # (Auto) 0 Baso # (Auto) 0 ABG pH 7.39 ABG pCO2 68.6 H* ABG pO2 64 L ABG HCO3 41 H ABG Total CO2 43 H ABG O2 Saturation 91 L ABG Base Excess 16.0 H FiO2 35 Sodium 143 Potassium 3.8 Chloride 105 Carbon Dioxide 35 H BUN 33 H Creatinine 0.50 L Estimated GFR > 60.0 BUN/Creatinine Ratio 66.0 H Glucose 114 H Calcium 9.1 B-Natriuretic Peptide 218 H
[2019-03-05] MEDS: BUSPIRONE 5 MG TABLET 10 MG PO (02:00)
[2019-03-05 04:55] LABS: Blood Urea Nitrogen 38 mg/dL (9-20); Calcium 9.3 mg/dL (8.4-10.2); Chloride 103 mmol/L (98-107); Estimated Glomerular Filt Rate > 60.0 mL/min (>60); Glucose 130 mg/dL (80-110); HEMOLYSIS < 15 (0-50); Potassium 3.7 mmol/L (3.4-5.1); Sodium 143 mmol/L (137-145)
[2019-03-05 05:00] LABS: Phosphorous 2.8 mg/dL (2.3-3.7)
[2019-03-05 05:05] LABS: Carbon Dioxide 38 mmol/L (22-32)
[2019-03-05] MEDS: PIPERACILLIN-TAZO 3.375 GM/50 ML FROZ.PIGGY IV ×3 (05:20→21:06)
[2019-03-05] MEDS: ALBUTEROL/IPRATROPIUM 3 ML AMPUL INH ×5 (06:04→22:34)
--- NOTE | 2019-03-05 07:42 | PM.PNPO.1 ---
Subjective Subjective Date Patient Seen: 03/05/19 Time Patient Seen: 07:42 Interval history: He is doing better. Was able to swallow small amounts of water and ice chips yesterday. Did require BiPAP again overnight. He is frustrated and wants to go home Exam Vital Signs (past 8 hours): - 03/04/19 23:52 03/05/19 00:01 03/05/19 04:30 Temperature 99.2 F 97.8 F Pulse Rate 103 H 97 H Respiratory Rate 23 19 Blood Pressure 160/79 H 157/92 H Pulse Oximetry 100 100 94 Fraction of Inspired Oxygen 35 Oxygen Delivery Method BiPAP Oxygen Flow Rate 35 Const Orientation: alert and oriented to person Back/Spine/Pelvis Other: CDI. 5/5 motor both upper extremities except for 4/5 bilateral phlebotomy services technician, 3/5 right intrinsic and 1/5 left intrinsic Objective Labs Result Diagrams: 03/04/19 04:50 03/05/19 04:30 Labs: Laboratory Results - last 24 hr 03/05/19 03/05/19 03/05/19 01:10 04:30 04:30 ABG pH 7.39 ABG pCO2 68.6 H* ABG pO2 64 L ABG HCO3 41 H ABG Total CO2 43 H ABG O2 Saturation 91 L ABG Base Excess 16.0 H FiO2 35 Sodium 143 Potassium 3.7 Chloride 103 Carbon Dioxide 38 H BUN 38 H Creatinine 0.50 L Estimated GFR > 60.0 BUN/Creatinine Ratio 76.0 H Glucose 130 H Calcium 9.3 Phosphorus 2.8 Magnesium 2.0 Assessment & Plan Post-op Postoperative Procedures: Procedures Operation Date: 02/27/19 07:45 Actual Procedures Side Surgeon p C3-7 anterior discectomy and anterior/posterior instrumentated fusion w/ bone graft Joo Osullivan MD Operation Date: 03/02/19 18:00 Actual Procedures Side Surgeon p Bronchoscopy Not Applicable Jm Verduzco MD Stable from an orthopedic standpoint. Main issues currently are swallowing and pulmonary status. He is getting a swallow study today. Still requiring BiPAP at night but has been weaning back during the day. Continue IV antibiotics for pneumonia. Continue with critical care.
--- NOTE | 2019-03-05 09:40 | OT.IP.TRT ---
Current Diagnoses Other spondylosis with myelopathy, cervical region (02/27/19) Spinal stenosis, cervical region (02/27/19) Surgery Performed Operation Date: 02/27/19 07:45 Actual Procedures p C3-7 anterior discectomy and anterior/posterior instrumentated fusion w/ bone graft - Joo Osullivan MD Operation Date: 03/02/19 18:00 Actual Procedures p Bronchoscopy(Not Applicable) - Jm Verduzco MD Occupational Therapy Treatment Note M2 OT-IP Current Condition Start: 02/27/19 15:37 Freq: Status: Active Protocol: Document 02/28/19 15:53 CGR (Rec: 02/28/19 16:10 CGR [email or web address]) Occupational Therapy Current Condition Current Condition Evaluation Date 02/28/19 Treatment Diagnosis C3-7 ACDF w bone graft, extubated 02/28 Diagnosis Onset Date 02/27/19 Post Operative Precautions Cervical Spine Precautions Soft Collar for Comfort,No Heavy Lifting,Log Roll M3 OT- IP Subjective and Pain Start: 02/27/19 15:37 Freq: Status: Active Protocol: Document 03/05/19 09:40 PJM (Rec: 03/05/19 18:02 PJM [id number]) OT- Subjective Occupational Therapy Visit Type Type Treatment Note Visit Start Time 09:12 Visit Stop Time 09:40 Total Visit Minutes 28 Notes Pt's here this session for education. Occupational Therapy Visit Comments Patient Comments voice is hoarse, pt whispers short responses to questions Patient/Caregiver Goals to be able to swallow OT Pain Assessment Pain When Pain Assessed After Treatment Pain Present Pain Present Pain Reported Location Neck Intensity 3 Scale Used Numeric (1 - 10) Description Aching,Acute M4 OT- IP ADL's Start: 02/27/19 15:37 Freq: Status: Active Protocol: Document 03/05/19 09:40 PJM (Rec: 03/05/19 18:02 PJM [id number]) OT [id number] General Evaluation Diet Level for Self-Feeding NPO with barium swallowing pending later this AM OT ADL-Dressing General Eval Lower Body Dressing Ability Moderate Assistance Areas Needing Assistance Socks Assistive Devices Dressing Assistive Devices Collaborative Physician,Sock Aid Comments OT Dressing Comments Began education re: use of elevator erector and sock aid for donning and doffing socks. Pt has weakness in L>R hand which interferes with use of adaptive equipt M6 OT- IP Functional Cognition Start: 02/27/19 15:37 Freq: Status: Active Protocol: Document 03/05/19 09:40 PJM (Rec: 03/05/19 18:02 PJM [id number]) Cognitive Factors Limiting Selfcare Function Cognitive Ability Level of Alertness Alert Patient Orientation Name,Month,Date,Year,Day of Week,Place Attention Span Ability Capable of Focused Attention, Capable of Sustained Attention Ability to Follow Commands Able to Follow One Step Commands M8 OT- IP Objective Assessments Start: 02/27/19 15:37 Freq: Status: Active Protocol: Document 03/05/19 09:40 PJM (Rec: 03/05/19 18:02 PJM [email or web address]) OT Strength Upper Extremity Strength Assessment Bilaterally Impaired Comments Strength Comments L (dominant) lumbricals, dorsal interossei, thumb abductors/opposition 3-/5; pt can flex thumb to middle finger only, lacks true opposition due to thumb weakness with tenodesis substitution pattern noted R lumbricals 3/5, dorsal interossei, 3-/5, thumb abd 3+/5 can oppose thumb to all fingers. Educated pt/ re: 3 yellow (least resistive) theraputty exercises for gross grasp, palmar pinch and finger extension to increase hand strength OT- Coordination Assessment Comments Coordination Comments B hand coordination impaired L >R by intrinsic muscle weakness with difficulty manipulating trigger on elevator erector and pulling socks onto sock aid OT-Muscle Tone Assessment Muscle Tone WNL Yes OT Sensation Assessment Comments Summary Comments Pt denies sensory deficits in B hands and detects lt touch grossly. Edema Edema Present Edema Comments Min B hand edema noted. Pt/ educated re: fist pumping and elevation M9 OT- IP Assessment and Plan Start: 02/27/19 15:37 Freq: Status: Active Protocol: Document 03/05/19 09:40 PJM (Rec: 03/05/19 18:02 PJM [id number]) OT Summary Assessment and Plan Potential Rehabilitation Potential Good Summary OT Impairments Pain,Range of Motion,Strength, Balance,Coordination, Functional Mobility,Self- Feeding,Grooming,Dressing, Toileting,Bathing Progress Towards Goals Slow Progress due to Medical Issues,Slow Progress due to Activity Tolerance Assessment Summary Pt alert, oriented this session and pt just finished with P.T. session. Pt/ seen for education and practice re: lower body dressing with adaptive equipt while pt seated in chair. B hand intrinsic muscle weakness interferes with manipulation of elevator erector and sock aid. Provided therpautty exercises for B hand strengthening. Good participation and effort from pt but activity toelrance is limited. Recommend SNF at d/c for further rehab services when pt medically stable. Goals Grooming Goal Independent Dressing Goal Standby Assistance Toileting Goal Standby Assistance Bathing Goal Minimal Assistance Toilet Transfer Goal Contact Guard Assistance Shower Transfer Goal Minimal Assistance Patient/Caregiver Education Goal Demonstrate Post-Op Precautions,Caregiver Independent Assisting Patient OT-Other Goals Pt to complete B hand strengthening program with SBA . Days to Meet Goals 10 Frequency of Treatment Frequency Of Treatment Once a Day Treatment Plan OT Treatment Plan ADL Training,Functional Cognition Training,Functional Mobility,Patient/Family Education,Discharge Planning Discharge Recommendations OT Discharge Recommendations SNF Rehab
--- NOTE | 2019-03-05 09:47 | PT.IPTN ---
Current Diagnoses Other spondylosis with myelopathy, cervical region (02/27/19) Spinal stenosis, cervical region (02/27/19) Surgery Performed Operation Date: 02/27/19 07:45 Actual Procedures p C3-7 anterior discectomy and anterior/posterior instrumentated fusion w/ bone graft - Joo Osullivan MD Operation Date: 03/02/19 18:00 Actual Procedures p Bronchoscopy(Not Applicable) - Jm Verduzco MD Physical Therapy Treatment Note M2 PT-IP Current Condition Start: 02/27/19 15:35 Freq: NEEDED Status: Active Protocol: Document 02/28/19 14:48 NFW (Rec: 02/28/19 15:29 NFW [id number]) Physical Therapy Current Condition Current Condition Evaluation Date 02/28/19 Treatment Diagnosis Cervical stenosis with myelopathy, s/p C3-8 post fusion and ACDF Precautions Cervical Spine Precautions Soft Collar for Comfort,No Heavy Lifting,Log Roll Brace Soft collar Weight Bearing Status Weight Bearing Status Full Weight Bearing M3 PT-IP Subjective Start: 02/27/19 15:35 Freq: NEEDED Status: Active Protocol: Document 03/05/19 09:43 [facility] (Rec: 03/05/19 09:47 [facility] [email or web address]) Subjective Physical Therapy Visit Type Type Treatment Note Visit Start Time 08:25 Visit Stop Time 08:50 Total Visit Minutes 25 Number of SALES SUPPORT COORDINATOR Visits 0 Physical Therapy Visit Comments Patient Comments Pt reports he is ready to try PT. motivated to get home M4 PT-IP Mobility and Gait Start: 02/27/19 15:35 Freq: NEEDED Status: Active Protocol: Document 03/05/19 09:43 [facility] (Rec: 03/05/19 09:47 [facility] [id number]) PT-Bed Mobility Assessment Rolling Type of Rolling Log Rolling,Roll to Left Level of Assist Contact Guard Assistance Supine to Sit Supine to Sit Contact Guard Assistance,Head of Bed Elevated,Bedrails Scooting Scooting to Edge of Bed Contact Guard Assistance PT-Transfer Assessment Sit to and From Stand Sit to and from Stand Contact Guard Assistance, Minimal Assistance,Use of Upper Extremities Equipment Transfer Assistive Device Gait Belt,Front Wheeled Walker Transfers Transfer Destination Chair Transfer Technique Stand Step Pivot Transfer Ability Level of Assist Contact Guard Assistance Comments Mobility Comments Pt did sit to stand from bed with min A and VC then transfered with CGA with FWW and assist only with cording. He was able to do 5x sit<> stand with min A for 3 and CGA for 2 with cueing and use of UEs. Gait Assessment Comments Gait Comments unable to at this time d/t resitriction w/cords M5 PT-IP Objective Assessments Start: 02/27/19 15:35 Freq: NEEDED Status: Active Protocol: Document 02/28/19 14:48 NFW (Rec: 02/28/19 15:29 NFW [id number]) Orientation Orientation/Cognition Level of Alertness Lethargic Orientation Name,Place,Situation Language Function Ability Garbled Speech Safety Awareness Decreased Safety Awareness Gross Range of Motion Upper Extremity ROM Assessment Bilaterally Impaired Impairments AROM against gravity in flexion <90 degrees; abduction ~60 degrees with right weaker . AAROM against gravity in flexion to ~120 degrees; abduction to 90 degrees with right weaker. Lower Extremity ROM Impairments ROM LEs functional. Strength Upper Extremity Strength Assessment Bilaterally Impaired Shoulder 3/5 Elbow 4/5 Wrist 4/5 Hand 3/5 Lower Extremity Strength Assessment Bilaterally Impaired Hip 3/5 in flexion Knee 3+/5 in extension Comments Strength Comments Difficulty with fine hand coordination or repetitive quick movements of fingers michela . Lion Trainer strength moderate bilaterally. Left hand ability to oppose thumb to middle finger at max. Pt is left dominant. LE strength generally a grade 3 with tremorous movement. Unable to perform repetitive quick movements at ankles. Coordination Assessment Gross Coordination Gross Coordination Impaired Sensation Assessment Comments Sensation Comments Pt denies n&t in UEs. Other Assessments Other Other Assessments O2 95 BP in sitting 113/70, pulse 86 M6 PT-IP Treatment Start: 02/27/19 15:35 Freq: NEEDED Status: Active Protocol: Document 03/05/19 09:43 [facility] (Rec: 03/05/19 09:47 [facility] [id number]) Physical Therapy Treatment Education Education Provided Safety Other Treatments Other Treatment Performed standing hip flex x30 B M7 PT-IP Assessment and Plan Start: 02/27/19 15:35 Freq: NEEDED Status: Active Protocol: Document 03/05/19 09:43 [facility] (Rec: 03/05/19 09:47 [facility] [email or web address]) PT Summary Assessment and Plan Summary Impairments Pain,ROM,Strength,Balance, Coordination,Sensation,Tone, Cognition,Bed Mobility, Transfers,Gait,Activity Tolerance Progress Towards Goals Progressing Toward Goals Assessment Summary Pt able to do bed mobility and transfer with dec assistance today. 2 ppl required but 2nd person only required for line management at this time. He is able to all transfers and bed mobility with min A today or less. He is very motivated to progress Goals Bed Mobility Goal Standby Assistance Transfer Goal Contact Guard Assistance,Front Wheeled Walker Gait Goal Contact Guard Assistance,Front Wheel Walker Gait Distance 50 Other Goals up/down 2 steps without rails CGA Days to Meet Goals 10 Frequency of Treatment Frequency Of Treatment Twice a Day Treatment Plan Physical Therapy Treatment Plan Bed Mobility Training,Transfer Training,Gait Training, Therapeutic Exercise,Balance Retraining,Post Op Education, Coordination Retraining Other Recommendations and Next Treatment ambulate as able, transfers Focus and bed mobilty. Recommendations To Nursing Amount of Assist Needed 2 Person Assist Discharge Recommendations PT Discharge Recommendations SNF Rehab
[2019-03-05] MEDS: ENOXAPARIN 40 MG/0.4 ML SYRINGE SUBCUT (10:08)
[2019-03-05] MEDS: NICOTINE 21 MG PATCH TOP (10:09)
--- NOTE | 2019-03-05 10:30 | DI.RAD.S_ITS ---
PROCEDURE: FL BARIUM SWALLOW W SPEECH INDICATIONS: Swallow assessment post cervial fusion/post-extubation TECHNIQUE: Examination was conducted in conjunction with speech pathology per standard protocol. In the lateral projection, filming was performed of the patient swallowing. AP projection filming may also be performed with patient swallowing. COMPARISON: [facility], CR, XR CHEST FOR PICC 1V, 03/04/2019, 15:52. FINDINGS: There is prevertebral soft tissue swelling. Postsurgical changes related to anterior cervical fusion.There is laryngotracheal penetration or aspiration. Pathologic vallecular pooling is noted. IMPRESSION: 1. Laryngotracheal penetration and aspiration. Please see separate speech pathologist's report for detail. 2. Prevertebral soft tissue swelling, presumably related to recent surgery. Dictated by: Susy De La Vega M.D. on 03/05/2019 at 11:57 Approved by: Susy De La Vega M.D. on 03/05/2019 at 11:59
--- NOTE | 2019-03-05 11:00 | ST.SWALLOW ---
ST Modified Barium Swallow Study COMMUNICATIONS AND SIGNALS SUPERVISOR Modified Barium Swallow Study Start: 03/03/19 16:08 Freq: Status: Active Protocol: Document 03/05/19 11:15 TLC (Rec: 03/05/19 11:31 TLC [id number]) Modified Barium Swallow Study Total Time Visit Start Time 10:30 Visit Stop Time 11:00 Total Visit Minutes [address] Lucas Reason for Referral Dysphagia Setting Setting Acute Care Patient Information Identification Type Name Patient History Patient is s/p ACDF at C3-4, C4-5, and C5-6 with medical complications requiring multiple intubations/ extubations. Patient has not had PO intake since admission on 02/27/19. Patient was seen by speech therapy yesterday for swallow evaluation. Signs of aspiration present at bedside included throat clear/weak cough with small ice chips and sips of water. MBS was recommended to further evaluate swallowing. Subjective Observations Patient was seated in the MBS chair. On 6 L of O2 via nasal cannula. Alert and able to follow directions. Voice and cough weak. Patient Positioning Position View Lateral Imaging Lateral View Textures Administered Trials Presented Thin Liquid via Spoon,[place] Liquid via Spoon Oral Phase Source: MBSIMP (TM) (C) Bolus Specific Scoring Grid Lip Closure Mild Impairment Bolus Transport/Lingual Motion Moderate Impairment Nasal Regurgitation No Pharyngeal Phase Source: MBSIMP (TM) (C) Bolus Specific Scoring Grid Soft Palate Elevation No Impairment (WNL) Laryngeal Elevation Moderate Impairment Anterior Hyoid Movement Severe Impairment Epiglottic Range of Motion Severe Impairment Vallecular Residue Yes Laryngeal Vestibular Closure Severe Impairment Upper Esophageal Sphincter Opening Severe Impairment Residue in the Pyriform Sinuses Yes Additional Pharyngeal Phase Observations Minimal superior movement of the thyroid cartilage with minimal approximation of arytenoids to epiglottic petiole. Epiglottic inversion was absent due to swelling of posterior pharyngeal wall. Laryngeal vestibular closure was incomplete allowing a narrow column of thin and nectar thick contrast in the laryngeal vestibule. Contrast was aspirated (past level of vocal folds). There was no sensory response to aspiration and when cued to cough, contrast was not cleared from the airway. (Penetration Aspiration Scale score of 8). There was minimal to no pharyngoesophageal segment opening requiring multiple swallows to clear 1/2 tsp thin liquid. [place] thick liquids did not pass after multiple swallows and eventually resulted in patient coughing up barium. Effortful swallow was trialed and not effective at preventing aspiration or improving swallow function. No further trials administered for patient safety. A/P View Clinical Impressions Dysphagia Type Severe oropharyngeal dysphagia Findings Patient presents with postoperative oropharyngeal dysphagia impeding his ability to swallow food and liquids safely. Specifically, epiglottic inversion and upper exophageal sphincter opening are both severely impacted. Aspiration was observed with all trials. Patient is not safe for PO intake at this time with the exception of ice chips for quality of life. Nursing should continue oral care to reduce risk of aspiration pneumonia. Education regarding findings from today's study were provided to patient and his through verbal instruction. Understanding was expressed by the patient and family/caregiver. The patient will be instructed in completing the following exercises: effortful swallow, patricia maneuver, and tongue pull-backs to strengthen swallow and prevent atrophy from disuse; however, dysphagia will likely not improve until post-surgical changes/swelling improves. Rehabilitation Potential Fair Patient Appropriate for Therapy Yes Recommendations Diet Liquids Order Ice Chips Only Diet Order NPO Medication Recommendation Not Recommended by Mouth Treatment Plan Recommended Referrals Other,Dietary Consult Additional Recommended Referrals Surgeon to assess postsurgical changes
[2019-03-05] MEDS: BUDESONIDE 0.5 MG/2 ML NEB INH ×2 (11:22→18:59)
--- NOTE | 2019-03-05 11:53 | PM.PN.1 ---
Subjective Subjective Date Patient Seen: 03/05/19 Interval history: The patient is a 63-year-old male who is status post C3-C7 diskectomy, with anterior posterior instrumentation bone graft infusion. The patient had a postoperative complication that required re-intubation. In the recovery room he became markedly short of breath. The patient was again extubated, maintained on BiPAP, unfortunately continued to have respiratory distress. He underwent CT scanning of his chest which demonstrated mucus plugging. He was electively intubated and underwent bronchoscopy for suctioning with improvement of his pulmonary status. Patient does have a prolonged history of smoking. He had not been treated for COPD prior to admission. There is also some suggestion that he may have underlying sleep apnea. Overnight events: Patient had difficulty with BiPAP last evening. He was not tolerating the machine. In addition he was having visual hallucinations both last night and today. His heart rate has improved. He has no tremor. He is calmer and cooperative at this time. The patient has come off of the BiPAP. He was earlier on high-flow. He has now been titrated to 4 L of oxygen. Patient did undergo a modified barium swallow today. He has snow aspiration. He will remain NPO at this time. Exam Vital Signs (past 8 hours): - 03/05/19 04:30 03/05/19 07:30 03/05/19 08:05 Temperature 97.8 F 99.7 F H Pulse Rate 97 H 90 Respiratory Rate 19 26 H Blood Pressure 157/92 H 190/116 H 168/69 H Pulse Oximetry 94 94 03/05/19 08:17 03/05/19 11:29 Temperature Pulse Rate 85 Respiratory Rate 24 Blood Pressure Pulse Oximetry 97 93 Fraction of Inspired Oxygen 0.33 Oxygen Delivery Method High Flow Nasal Cannula Oxygen Flow Rate 35 Narrative Exam Narrative: Pleasant elderly gentleman sitting in a chair in no obvious distress HEENT: Normocephalic atraumatic, extraocular muscles are intact, oropharynx is clear, neck: Surgical bandages are applied without exudates or drainage Lungs: Decreased breath sounds but clear to auscultation bilaterally Cardiac exam: Regular rate and rhythm normal S1-S2 Abdomen soft nontender nondistended Extremities no edema Objective Labs Result Diagrams: 03/04/19 04:50 03/05/19 04:30 Labs: Laboratory Results - last 24 hr 03/05/19 03/05/19 03/05/19 01:10 04:30 04:30 ABG pH 7.39 ABG pCO2 68.6 H* ABG pO2 64 L ABG HCO3 41 H ABG Total CO2 43 H ABG O2 Saturation 91 L ABG Base Excess 16.0 H FiO2 35 Sodium 143 Potassium 3.7 Chloride 103 Carbon Dioxide 38 H BUN 38 H Creatinine 0.50 L Estimated GFR > 60.0 BUN/Creatinine Ratio 76.0 H Glucose 130 H Calcium 9.3 Phosphorus 2.8 Magnesium 2.0 Assessment & Plan Assessment & Plan narrative: Impression 1. Acute respiratory failure, improving -patient developed mucus plugging requiring bronchoscopy -patient was extubated 2 days ago now on BiPAP at night -RT to evaluate for trilogy -will continue to taper oxygen from high-flow currently on 4 L of oxygen -patient needs an outpatient sleep study and pulmonary evaluation given history of smoking and chronic respiratory acidosis (compensated) -goal is to continue to taper oxygen off 2. Healthcare associated pneumonia -patient was found to have bibasilar infiltrates on CT scan 48 hours after admission -given recent surgery and being in the hospital continue Zosyn as above -continue Zosyn for a total of 7 days, patient is on day 3 of 7 3. Probable COPD -patient with a greater than 40 pack-year history of smoking -will continue IV steroid, oxygen and nebulizer -will continue steroids, will continue to taper -recommend outpatient pulmonary function studies -recommend outpatient sleep study -continue BiPAP at night or as needed -currently being evaluated for possible trilogy 4. Hypertension -will use IV hydralazine as the patient is now in p.o. -resume lisinopril when able to take oral 5. Hypothyroid -L-thyroxine on hold as the patient is NPO -will resume when able to swallow 6. Severe protein calorie malnutrition -patient did not tolerate A NG tube -PICC line placed yesterday and the patient was started on TPN -speech and swallow to continue to follow until swallow function improves. -suspect swallowing/dysphagia related to underlying swelling from multiple intubations and recent cervical surgery -continue steroids for COPD which may help with swelling from his surgical procedure 7. Continue DVT prophylaxis 8. Acute Metabolic Encephalopathy- Patient hallucinating last night and today Will start low dose haldol continue steroid taper
[2019-03-05] MEDS: methylPREDNISolone 125 MG/2 ML VIAL 40 MG IV (13:48)
--- NOTE | 2019-03-05 14:16 | PT.IPTN ---
Current Diagnoses Other spondylosis with myelopathy, cervical region (02/27/19) Spinal stenosis, cervical region (02/27/19) Surgery Performed Operation Date: 02/27/19 07:45 Actual Procedures p C3-7 anterior discectomy and anterior/posterior instrumentated fusion w/ bone graft - Joo Osullivan MD Operation Date: 03/02/19 18:00 Actual Procedures p Bronchoscopy(Not Applicable) - Jm Verduzco MD Physical Therapy Treatment Note M2 PT-IP Current Condition Start: 02/27/19 15:35 Freq: NEEDED Status: Active Protocol: Document 02/28/19 14:48 NFW (Rec: 02/28/19 15:29 NFW [id number]) Physical Therapy Current Condition Current Condition Evaluation Date 02/28/19 Treatment Diagnosis Cervical stenosis with myelopathy, s/p C3-8 post fusion and ACDF Precautions Cervical Spine Precautions Soft Collar for Comfort,No Heavy Lifting,Log Roll Brace Soft collar Weight Bearing Status Weight Bearing Status Full Weight Bearing M3 PT-IP Subjective Start: 02/27/19 15:35 Freq: NEEDED Status: Active Protocol: Document 03/05/19 14:16 AB (Rec: 03/05/19 16:13 AB [id number]) Subjective Physical Therapy Visit Type Type Treatment Note Visit Start Time 14:16 Visit Stop Time 14:50 Total Visit Minutes 34 Number of CLIMATE CHANGE RISK ASSESSOR Visits 0 Physical Therapy Visit Comments Patient Comments pt agreeable to do PT M4 PT-IP Mobility and Gait Start: 02/27/19 15:35 Freq: NEEDED Status: Active Protocol: Document 03/05/19 14:16 AB (Rec: 03/05/19 16:13 AB [id number]) PT-Transfer Assessment Sit to and From Stand Sit to and from Stand Maximum Assistance,1 Person Assistance,Use of Upper Extremities Comments Mobility Comments performed sit to stand from chair max A and cues for techniques and also completed sit to stand from w/c max A and cues. Gait Assessment Gait Gait Assistance Required: Minimum Assistance,1 Person Assist Distance (Feet) 40 Able to Maintain Weight Bearing Status Yes During Gait Assistive Devices Assistive Device Gait Belt,Front Wheeled Walker Orthotic/Prosthetic Devices or Brace: No Gait Deviations General Gait Pattern Decreased Stride Length, Decreased Feet Clearance Factors Limiting Gait Function Factors Limiting Gait Function Decreased Activity Tolerance, Decreased Strength,Limited Range of Motion,Poor Balance, Poor Safety Awareness, Respiratory Distress Comments Gait Comments pt completed ambulation using FWW 40 ft x 2 requiring min A and cues. O2 sat at rest on 3L O2 sat 90% . asked nurse if O2 can be increased for ambulation and nurse adjusted to 4L/min and O2 sat at rest at 92-93%. O2 sat decreased to ~ 84-85% during first ambulation but pt with cold fingers and may not be getting an accurate O2 sat reading. after 2nd ambulation O2 sat at 95% using ear piece oximeter. positioned pt on chair. call light and table placed within reach. M5 PT-IP Objective Assessments Start: 02/27/19 15:35 Freq: NEEDED Status: Active Protocol: Document 02/28/19 14:48 NFW (Rec: 02/28/19 15:29 NFW [id number]) Orientation Orientation/Cognition Level of Alertness Lethargic Orientation Name,Place,Situation Language Function Ability Garbled Speech Safety Awareness Decreased Safety Awareness Gross Range of Motion Upper Extremity ROM Assessment Bilaterally Impaired Impairments AROM against gravity in flexion <90 degrees; abduction ~60 degrees with right weaker . AAROM against gravity in flexion to ~120 degrees; abduction to 90 degrees with right weaker. Lower Extremity ROM Impairments ROM LEs functional. Strength Upper Extremity Strength Assessment Bilaterally Impaired Shoulder 3/5 Elbow 4/5 Wrist 4/5 Hand 3/5 Lower Extremity Strength Assessment Bilaterally Impaired Hip 3/5 in flexion Knee 3+/5 in extension Comments Strength Comments Difficulty with fine hand coordination or repetitive quick movements of fingers michela . Vice President [employer] strength moderate bilaterally. Left hand ability to oppose thumb to middle finger at max. Pt is left dominant. LE strength generally a grade 3 with tremorous movement. Unable to perform repetitive quick movements at ankles. Coordination Assessment Gross Coordination Gross Coordination Impaired Sensation Assessment Comments Sensation Comments Pt denies n&t in UEs. Other Assessments Other Other Assessments O2 95 BP in sitting 113/70, pulse 86 M6 PT-IP Treatment Start: 02/27/19 15:35 Freq: NEEDED Status: Active Protocol: Document 03/05/19 14:16 AB (Rec: 03/05/19 16:13 AB [id number]) Physical Therapy Treatment Education Education Provided Precautions,Safety Other Treatments Other Treatment Performed assisted pt with putting cervical soft collar on M7 PT-IP Assessment and Plan Start: 02/27/19 15:35 Freq: NEEDED Status: Active Protocol: Document 03/05/19 14:16 AB (Rec: 03/05/19 16:13 AB [id number]) PT Summary Assessment and Plan Potential Rehabilitation Potential Good Summary Impairments Pain,ROM,Strength,Balance, Coordination,Sensation,Tone, Cognition,Bed Mobility, Transfers,Gait,Activity Tolerance Progress Towards Goals Slow Progress due to Medical Issues Assessment Summary pt is progressing slowly with mobility and continues to have decrease activity tolerance. pt making good eye contact this afternoon and able to follow directions. d/c plan depending on progress but at this time will still need SNF rehab to improve strength and mobility independence. Goals Bed Mobility Goal Standby Assistance Transfer Goal Contact Guard Assistance,Front Wheeled Walker Gait Goal Contact Guard Assistance,Front Wheel Walker Gait Distance 50 Other Goals up/down 2 steps without rails CGA Days to Meet Goals 10 Frequency of Treatment Frequency Of Treatment Twice a Day Treatment Plan Physical Therapy Treatment Plan Bed Mobility Training,Transfer Training,Gait Training, Therapeutic Exercise,Balance Retraining,Post Op Education, Coordination Retraining Other Recommendations and Next Treatment ambulate as able, transfers Focus and bed mobilty. Recommendations To Nursing Amount of Assist Needed 2 Person Assist Discharge Recommendations PT Discharge Recommendations SNF Rehab
--- NOTE | 2019-03-05 14:19 | CM.DPC ---
Spoke with Di of [facility] with an update about this patient. I was requesting that they continue to pursue the auth. with [facility] so that when patient is ready for discharge there will be a facility ready to take him. She was relieved that we were weren't trying to discharge him today as they felt he was too ill yet (I agreed and assured them we wouldn't discharge him until he was deemed medically stable by MD). I explained that our concern was that the patient would be discharged this weekend and the auth. wouldn't be complete. She agreed and asked I send over the current med list. I requested Jazmin to fax this to them for their review..
--- NOTE | 2019-03-05 14:43 | PC.NURSE ---
Day Shift Note Weaned to 3L HFNC by RT, SpO2 94-95%. Lungs sounds decreased to exp. rhonchi, intermittently productive cough, using yankauer to assist in clear oral secretions. Alert and oriented to self and place, did report seeing some cats in the corner of the room. Up 1 person assist to bathroom, FWW. MBS done this AM. Call light within reach, using appropriately to make needs known.
[2019-03-05] MEDS: HYDRALAZINE 20 MG/ML VIAL 10 MG IV (15:43)
[2019-03-05] MEDS: HYDROMORPHONE 0.5 MG INJ IV (16:51)
[2019-03-05] MEDS: MULTIVITAMIN IV (17:48)
[2019-03-05] MEDS: DEXT IV (17:48)
[2019-03-05] MEDS: TRACE ELEMENTS IV (17:48)
[2019-03-05] MEDS: LYTES IV (17:48)
[2019-03-05] MEDS: CALCIUM IV (17:48)
[2019-03-05] MEDS: [UNRECOGNIZED DRUG - OTHER] IV (17:48)
[2019-03-05] MEDS: METOPROLOL TARTRATE 5 MG/5 ML INJ IV ×3 (17:49→22:51)
--- NOTE | 2019-03-05 22:29 | PC.NURSE ---
Addendum entered by Shelbi Ceja R.N. 03/05/19 23:06: IV Lopressor given a 3rd time around 2300, BP was 173/100. Patient has Bipap on but is not tolerating it well- constantly tugging at the mask. Original Note: Patient has been SOB since BP became elevated around 1500. SpO2 is still 88-92%. 1x hydralazine was given and 2x IV Lopressor. BP remains elevated. Patient was oriented and did not show any signs of delirium or hallucinations until 2230 when the room was dark and the patient attempted to get out of bed stating I don't know what's going on. Patient now has Bipap on for the night. Bedside commode was used 3x during evening shift resulting in 2 soft BMs. Bed alarm on, call light within reach.
[2019-03-06] VITALS (16 sets, daily range): BP systolic 147–177; BP diastolic 83–113; PULSE 73–141; RESP 15–28; TEMP 36.5–36.7; O2SAT 90–98
[2019-03-06] MEDS: methylPREDNISolone 125 MG/2 ML VIAL 40 MG IV
--- NOTE | 2019-03-06 00:19 | PC.NURSE ---
Addendum entered by Sharonda Agrawal R.N. 03/06/19 06:44: Patient continued to adamantly refuse Bipap. Sp02 > 94% on 4LHFNC with RR in the 20's. At 0610 Sp02 dropped rapidly to 74%. Patient symptomatic with diaphoresis, dusky skin color, increased WOB and RR 30's. Tele showing rapid Afib 125-130. BP hypertensive still. Placed immediatley back onto Bipap - patient obviously in distress and this time did not fight staff with the mask. Fi02 increased by this RN to 50%. RT at bedside. Very slow recovery of Sp02. XAVIER Pierce updated on events and patient status. Stat orders for EKG and ABG. Results provided to her. Dr. Osullivan rounding early and also updated on overnight events. Current vitals at 0649: HR 115, Sp02 94% on Fi02 50%, RR 30, BP 160/98. Addendum entered by Sharonda Agrawal R.N. 03/06/19 04:49: Bipap removed by patient at 0440 and refusing to continue. Placed on 4L HFNC. RR 20-30. Requesting to sit at 90 degrees in bed to assist with breathing. HTN persists 177/91 - Lopressor IVP per orders. Addendum entered by Sharonda Agrawal R.N. 03/06/19 02:47: Patient restless, removing Bipap mask. Noted to be attempting to call someone and finally saw that he had called 911 to tell them about his dislike of the mask. Clarified with dispatcher that patient is in the hospital and safe. RR 40 with labored breathing. Educated patient on need for Bipap. He is paranoid and hallucinating that it is blowing dirt everywhere. Medicated with haldol per orders. Reassured patient. Refusing to be turned at this time. Original Note: At start of shift during shift report patient was restless and pulling off Bipap. Previous RN placed back on HFNC @ 4L. Sp02 96% at the time. 0010 patient adamant about using BSC for BM. Assisted up to BSC with two person assist. Patient is extremely weak and unsteady. He also did not tolerate the activity with increased RR into the 30's and increased WOB. Placed back in bed and back on Bipap. Advised that Bipap is needed and he needs rest at this time, compliant for the time being. HTN persists - 170/98. Hydralazine per orders with repeat BP of 150/83. Refusing SCD's. Bed alarm verified active.
[2019-03-06] MEDS: HALOPERIDOL 5 MG/ML VIAL 2 MG IV (02:43)
[2019-03-06] MEDS: METOPROLOL TARTRATE 5 MG/5 ML INJ IV ×3 (04:42→07:46)
[2019-03-06] MEDS: PIPERACILLIN-TAZO 3.375 GM/50 ML FROZ.PIGGY IV (04:43)
[2019-03-06 05:25] LABS: Blood Urea Nitrogen 28 mg/dL (9-20); Calcium 9.2 mg/dL (8.4-10.2); Carbon Dioxide 38 mmol/L (22-32); Chloride 96 mmol/L (98-107); Estimated Glomerular Filt Rate > 60.0 mL/min (>60); Glucose 158 mg/dL (80-110); HEMOLYSIS 18 (0-50); Phosphorous 2.8 mg/dL (2.3-3.7); Potassium 3.5 mmol/L (3.4-5.1); Sodium 141 mmol/L (137-145)
[2019-03-06] MEDS: ALBUTEROL/IPRATROPIUM 3 ML AMPUL INH ×2 (06:09→10:36)
--- NOTE | 2019-03-06 06:24 | P.PN_ITS ---
Subjective Subjective Date Patient Seen: 03/06/19 Time Patient Seen: 06:24 Interval history: He was restless overnight and would not wear his BiPAP. He finally began desaturating and struggling more for breath but did better back on BiPAP. However, he just went into AFib about 15 minutes ago. Exam Vital Signs (past 8 hours): - 03/05/19 22:34 03/05/19 23:46 03/06/19 00:00 Temperature 99.1 F Pulse Rate 68 78 Respiratory Rate 22 Blood Pressure 173/100 H 170/91 H 170/91 H Pulse Oximetry 93 03/06/19 00:16 03/06/19 00:19 03/06/19 00:22 Temperature Pulse Rate 73 Respiratory Rate Blood Pressure 150/83 H 150/83 H Pulse Oximetry 92 03/06/19 02:47 03/06/19 04:25 03/06/19 06:09 Temperature 98.0 F Pulse Rate 93 H 123 H Respiratory Rate 25 H 22 Blood Pressure 177/91 H 165/84 H Pulse Oximetry 90 L 90 L 93 03/06/19 06:10 03/06/19 06:15 Temperature Pulse Rate 125 H Respiratory Rate 28 H Blood Pressure 165/84 H 165/84 H Pulse Oximetry 92 Fraction of Inspired Oxygen 50 Oxygen Delivery Method BiPAP Oxygen Flow Rate 3.5 Const Orientation: alert, awake, oriented to person and oriented to place Back/Spine/Pelvis Other: CDI. 5/5 motor both upper extremities except for 4/5 bilateral industrial locomotive operator and 3/5 right intrinsics, 1/5 left intrinsics Objective Labs Result Diagrams: 03/04/19 04:50 03/06/19 04:25 Labs: Laboratory Results - last 24 hr 03/06/19 04:25 Sodium 141 Potassium 3.5 Chloride 96 L Carbon Dioxide 38 H BUN 28 H Creatinine 0.40 L Estimated GFR > 60.0 BUN/Creatinine Ratio 70.0 H Glucose 158 H Calcium 9.2 Phosphorus 2.8 Magnesium 2.0 Assessment & Plan Post-op Postoperative Procedures: Procedures Operation Date: 02/27/19 07:45 Actual Procedures Side Surgeon p C3-7 anterior discectomy and anterior/posterior instrumentated fusion w/ bone graft Joo Osullivan MD Operation Date: 03/02/19 18:00 Actual Procedures Side Surgeon p Bronchoscopy Not Applicable Jm Verduzco MD he is still not able to maintain his respiratory status without BiPAP at night time. Currently now starting to do with AFib. He is on Lovenox. Continue with critical care management.
[2019-03-06] MEDS: SODIUM CHLORIDE 0.9% 500 ML 1000 ML IV (06:35)
[2019-03-06 06:36] LABS: HCO3 ABG 45 mmol/L (22-26); Oxygen Saturation ABG 96 % (95-100); PO2 ABG 87 mmHg (80-100); TCO2 ABG 47 mmol/L (21-31); pH ABG 7.37 (7.35-7.45)
[2019-03-06 06:37] LABS: Fractionated Inspired Oxygen 50; PCO2 ABG 78.1 mmHg (35-45)
[2019-03-06 06:44] LABS: Add Manual Diff / Slide Review NO; Basophils Absolute Auto 0 /uL (0-100); Basophils Percent Auto 0.1 % (0-2); Eosinophils Absolute Auto 0 /uL (0-450); Hematocrit 48.2 % (41-53); Hemoglobin 16.2 g/dL (13.5-17.5); Lymphocytes Absolute Auto 400 /uL (1100-4500); Lymphocytes Percent Auto 5.1 % (25-40); Mean Corpuscular HGB Conc 33.5 % (30-36); Mean Corpuscular Hemoglobin 32.6 PG (26-34); Mean Corpuscular Volume 97.3 fL (80-100); Monocytes Absolute Auto 600 /uL (0-900); Monocytes Percent Auto 8.7 % (3-14); Neutrophils Absolute Auto 6000 /uL (1500-7000); Neutrophils Percent Auto 86.1 % (50-75); Platelet Count 175 X10^3/uL (150-400); Red Blood Cell Count 4.96 X10^6/uL (4.5-5.9); Red Cell Distribution Width 13.9 % (11.6-14.8); White Blood Cell Count 6.9 X10^3/uL (4.5-11.0)
[2019-03-06] MEDS: POTASSIUM CHLORIDE 40 MEQ in SODIUM CHLORIDE 0.9% 500 ML 108 ML IV (06:45)
[2019-03-06 06:46] LABS: Creatine Kinase 36 U/L (55-170)
[2019-03-06] MEDS: HYDRALAZINE 20 MG/ML VIAL 10 MG IV ×2 (07:45)
[2019-03-06] MEDS: BUDESONIDE 0.5 MG/2 ML NEB INH (07:52)
[2019-03-06 08:07] LABS: pH ABG 7.38 (7.35-7.45)
[2019-03-06 08:08] LABS: Fractionated Inspired Oxygen 50; HCO3 ABG 39 mmol/L (22-26); Oxygen Saturation ABG 96 % (95-100); PCO2 ABG 65.7 mmHg (35-45); PO2 ABG 86 mmHg (80-100); TCO2 ABG 41 mmol/L (21-31)
--- NOTE | 2019-03-06 08:33 | SLP.IPNOTE ---
Per Nursing, patient not appropriate for dysphagia therapy this AM. Will try again this afternoon.
[2019-03-06] MEDS: ESMOLOL 2.5 GM/250 ML IV.SOLN IV (09:25)
--- NOTE | 2019-03-06 09:34 | DI.CT.S_ITS ---
PROCEDURE: CT ANGIO CHEST INDICATIONS: , pna, mucus plugs, larnygeal edema TECHNIQUE: After the administration of intravenous contrast, 2 mm thick sections acquired from the pulmonary apices to the posterior costophrenic angles. 3-dimensional maximum intensity projection (MIP) coronal and sagittal reformats were then acquired through the thorax. For radiation dose reduction, the following was used: automated exposure control, adjustment of mA and/or kV according to patient size. COMPARISON: [facility], CR, XR CHEST FOR PICC 1V, 03/04/2019, 15:52. [facility], CT, CT ANGIO CHEST, 03/02/2019, 13:37. FINDINGS: Image quality: Excellent. Pulmonary arteries: Pulmonary arteries are normal in size, and demonstrate no intraluminal filling defects to suggest central pulmonary embolism. Lungs and pleura: Emphysematous changes are seen, including subpleural bleb formation. Dense consolidation can be seen within the left lower lobe. A mild degree of consolidation can be seen within the right lower lobe. Trace pleural effusions are seen. No pneumothorax is seen. Prominent mucous plugs can be seen involving the left lower lobe, with moderate mucous plugging seen involving the left upper lobe. The right central bronchi appear normal and patent. Mediastinum: Heart size is normal, without pericardial effusion. No mediastinal or hilar adenopathy. Thoracic aorta is normal in caliber and enhancement. Esophagus is normal in caliber, without hiatal hernia. Bones and chest wall: A left-sided PICC line is seen, with the tip in the inferior aspect of the superior vena cava. No suspicious bony lesions. Moderate bony degenerative changes are seen. Accentuated thoracic kyphosis is seen. Ribs and thoracic spine appear intact throughout. Thyroid gland demonstrates no significant CT abnormality. No axillary or supraclavicular adenopathy. Cervical spine fixation hardware is partially seen. Abdomen: Cholecystectomy clips are seen. Visualized upper abdominal solid organs appear normal in the early arterial phase of enhancement. IMPRESSION: Negative for pulmonary embolism. Prominent left-sided mucous plugging, with associated prominent left lower lobe consolidation. Mild right lower lobe consolidation. Trace bilateral pleural effusions. Emphysematous changes. Incidental note is made of: Left-sided PICC line Cervical spine fixation hardware Cholecystectomy Dictated by: Juan Torres M.D. on 03/06/2019 at 8:55 Approved by: Juan Torres M.D. on 03/06/2019 at 9:01
[2019-03-06 09:40] LABS: Procalcitonin 0.16 ng/mL (<0.5)
--- NOTE | 2019-03-06 09:40 | PT.IPTN ---
Current Diagnoses Other spondylosis with myelopathy, cervical region (02/27/19) Spinal stenosis, cervical region (02/27/19) Surgery Performed Operation Date: 02/27/19 07:45 Actual Procedures p C3-7 anterior discectomy and anterior/posterior instrumentated fusion w/ bone graft - Joo Osullivan MD Operation Date: 03/02/19 18:00 Actual Procedures p Bronchoscopy(Not Applicable) - Jm Verduzco MD Physical Therapy Treatment Note M2 PT-IP Current Condition Start: 02/27/19 15:35 Freq: NEEDED Status: Active Protocol: Document 02/28/19 14:48 NFW (Rec: 02/28/19 15:29 NFW [id number]) Physical Therapy Current Condition Current Condition Evaluation Date 02/28/19 Treatment Diagnosis Cervical stenosis with myelopathy, s/p C3-8 post fusion and ACDF Precautions Cervical Spine Precautions Soft Collar for Comfort,No Heavy Lifting,Log Roll Brace Soft collar Weight Bearing Status Weight Bearing Status Full Weight Bearing M3 PT-IP Subjective Start: 02/27/19 15:35 Freq: NEEDED Status: Active Protocol: Document 03/06/19 09:39 LJ (Rec: 03/06/19 09:40 LJ [id number]) Subjective Physical Therapy Visit Type Type Patient Unavailable Notes hold per Dr. Gilliam. Pt in respiratory distress. Consult with Dr. Gilliam prior to working with pt in afternoon. M4 PT-IP Mobility and Gait Start: 02/27/19 15:35 Freq: NEEDED Status: Active Protocol: Document 03/05/19 14:16 AB (Rec: 03/05/19 16:13 AB [id number]) PT-Transfer Assessment Sit to and From Stand Sit to and from Stand Maximum Assistance,1 Person Assistance,Use of Upper Extremities Comments Mobility Comments performed sit to stand from chair max A and cues for techniques and also completed sit to stand from w/c max A and cues. Gait Assessment Gait Gait Assistance Required: Minimum Assistance,1 Person Assist Distance (Feet) 40 Able to Maintain Weight Bearing Status Yes During Gait Assistive Devices Assistive Device Gait Belt,Front Wheeled Walker Orthotic/Prosthetic Devices or Brace: No Gait Deviations General Gait Pattern Decreased Stride Length, Decreased Feet Clearance Factors Limiting Gait Function Factors Limiting Gait Function Decreased Activity Tolerance, Decreased Strength,Limited Range of Motion,Poor Balance, Poor Safety Awareness, Respiratory Distress Comments Gait Comments pt completed ambulation using FWW 40 ft x 2 requiring min A and cues. O2 sat at rest on 3L O2 sat 90% . asked nurse if O2 can be increased for ambulation and nurse adjusted to 4L/min and O2 sat at rest at 92-93%. O2 sat decreased to ~ 84-85% during first ambulation but pt with cold fingers and may not be getting an accurate O2 sat reading. after 2nd ambulation O2 sat at 95% using ear piece oximeter. positioned pt on chair. call light and table placed within reach. M5 PT-IP Objective Assessments Start: 02/27/19 15:35 Freq: NEEDED Status: Active Protocol: Document 02/28/19 14:48 NFW (Rec: 02/28/19 15:29 NFW [id number]) Orientation Orientation/Cognition Level of Alertness Lethargic Orientation Name,Place,Situation Language Function Ability Garbled Speech Safety Awareness Decreased Safety Awareness Gross Range of Motion Upper Extremity ROM Assessment Bilaterally Impaired Impairments AROM against gravity in flexion <90 degrees; abduction ~60 degrees with right weaker . AAROM against gravity in flexion to ~120 degrees; abduction to 90 degrees with right weaker. Lower Extremity ROM Impairments ROM LEs functional. Strength Upper Extremity Strength Assessment Bilaterally Impaired Shoulder 3/5 Elbow 4/5 Wrist 4/5 Hand 3/5 Lower Extremity Strength Assessment Bilaterally Impaired Hip 3/5 in flexion Knee 3+/5 in extension Comments Strength Comments Difficulty with fine hand coordination or repetitive quick movements of fingers michela . Torch Brazer strength moderate bilaterally. Left hand ability to oppose thumb to middle finger at max. Pt is left dominant. LE strength generally a grade 3 with tremorous movement. Unable to perform repetitive quick movements at ankles. Coordination Assessment Gross Coordination Gross Coordination Impaired Sensation Assessment Comments Sensation Comments Pt denies n&t in UEs. Other Assessments Other Other Assessments O2 95 BP in sitting 113/70, pulse 86 M6 PT-IP Treatment Start: 02/27/19 15:35 Freq: NEEDED Status: Active Protocol: Document 03/05/19 14:16 AB (Rec: 03/05/19 16:13 AB [id number]) Physical Therapy Treatment Education Education Provided Precautions,Safety Other Treatments Other Treatment Performed assisted pt with putting cervical soft collar on M7 PT-IP Assessment and Plan Start: 02/27/19 15:35 Freq: NEEDED Status: Active Protocol: Document 03/05/19 14:16 AB (Rec: 03/05/19 16:13 AB [id number]) PT Summary Assessment and Plan Potential Rehabilitation Potential Good Summary Impairments Pain,ROM,Strength,Balance, Coordination,Sensation,Tone, Cognition,Bed Mobility, Transfers,Gait,Activity Tolerance Progress Towards Goals Slow Progress due to Medical Issues Assessment Summary pt is progressing slowly with mobility and continues to have decrease activity tolerance. pt making good eye contact this afternoon and able to follow directions. d/c plan depending on progress but at this time will still need SNF rehab to improve strength and mobility independence. Goals Bed Mobility Goal Standby Assistance Transfer Goal Contact Guard Assistance,Front Wheeled Walker Gait Goal Contact Guard Assistance,Front Wheel Walker Gait Distance 50 Other Goals up/down 2 steps without rails CGA Days to Meet Goals 10 Frequency of Treatment Frequency Of Treatment Twice a Day Treatment Plan Physical Therapy Treatment Plan Bed Mobility Training,Transfer Training,Gait Training, Therapeutic Exercise,Balance Retraining,Post Op Education, Coordination Retraining Other Recommendations and Next Treatment ambulate as able, transfers Focus and bed mobilty. Recommendations To Nursing Amount of Assist Needed 2 Person Assist Discharge Recommendations PT Discharge Recommendations SNF Rehab
--- NOTE | 2019-03-06 10:00 | DI.RAD.S_ITS ---
PROCEDURE: XR CHEST 1V INDICATIONS: intubation TECHNIQUE: One view of the chest was acquired. COMPARISON: [facility], CR, XR CHEST FOR PICC 1V, 03/04/2019, 15:52. FINDINGS: Surgical changes and devices: ET tube tip is approximately 4 cm above the andrew. Surgical hardware in lower cervical spine are seen. Left-sided PICC line tip is in SVC. Lungs and pleura: There is blunting of left costophrenic angle suggestive of small left pleural effusion. Mild pulmonary vascular congestion is seen. No gross pneumothorax. Mediastinum: Mediastinal contours appear normal. Heart size is enlarged. Bones and chest wall: No suspicious bony lesions. Overlying soft tissues appear unremarkable. IMPRESSION: ET tube is above the andrew and is in satisfactory position. Left pleural effusion and left basilar atelectasis. Pulmonary vascular congestion. No gross pneumothorax. Dictated by: Loc Menezes M.D. on 03/06/2019 at 10:40 Approved by: Loc Menezes M.D. on 03/06/2019 at 10:45
--- NOTE | 2019-03-06 10:07 | ED.CONSULT ---
ED Provider Consult/Code Note General Date Patient Seen: 03/06/19 Time Patient Seen: 10:00 Reason for Admission: Cervical Fusion Anterior/Posterior Events leading to Consult/Code: Called to see patient in the ICU as he has a recurrence of respiratory failure. Patient has been intubated and subsequently extubated on multiple occasions. He has had postoperative complications after his cervical fusion. Given multiple intubations and recent cervical surgery I asked that difficult airway devices be at bedside and anesthesia paged. Patient had been sent to CT to rule out pulmonary embolism and became hypoxic with respiratory failure. Patient was evaluated and found to be hypoxic, cyanotic with some difficulty in bagging. RSI drugs included ketamine and rocuronium. After the ketamine the patient immediately became easier to bag and vitals improved but respiratory failure were still present. He was easily intubated with 1st attempt using a glide scope, 7.5 endotracheal tube,23 at the lips. Confirmation by visualization, condensation in the tube, end-tidal CO2. X-ray ordered and patient returned to the care of hospitalist Intubation: Decision to intubate this patient was made secondary to [Respiratory failure]. Appropriate staffing including multiple nurses and respiratory therapy were at the bedside. Glydescope and bougie as well as difficult airway cart at bedside. Patient was preoxygenated and put on monitors. Rapid sequence intubation was performed using the following drugs:[Ketamine and Rocuronium]. Intubation was successful based on visualization through the cords, condensation tube, confirmation with end tidal CO2 monitoring, equal breath sounds bilaterally, as well as radiographic confirmation of endotracheal tube just above the andrew.
--- NOTE | 2019-03-06 10:20 | OT.IP.TRT ---
Current Diagnoses Other spondylosis with myelopathy, cervical region (02/27/19) Spinal stenosis, cervical region (02/27/19) Surgery Performed Operation Date: 02/27/19 07:45 Actual Procedures p C3-7 anterior discectomy and anterior/posterior instrumentated fusion w/ bone graft - Joo Osullivan MD Operation Date: 03/02/19 18:00 Actual Procedures p Bronchoscopy(Not Applicable) - Jm Verduzco MD Occupational Therapy Treatment Note M2 OT-IP Current Condition Start: 02/27/19 15:37 Freq: Status: Active Protocol: Document 02/28/19 15:53 CGR (Rec: 02/28/19 16:10 CGR [id number]) Occupational Therapy Current Condition Current Condition Evaluation Date 02/28/19 Treatment Diagnosis C3-7 ACDF w bone graft, extubated 02/28 Diagnosis Onset Date 02/27/19 Post Operative Precautions Cervical Spine Precautions Soft Collar for Comfort,No Heavy Lifting,Log Roll M3 OT- IP Subjective and Pain Start: 02/27/19 15:37 Freq: Status: Active Protocol: Document 03/06/19 10:19 CCC (Rec: 03/06/19 10:20 CCC [id number]) OT- Subjective Occupational Therapy Visit Type Type Patient Unavailable Notes Pt not medically appropriate and looking to transfer to higher care, HOLD from OT today.
[2019-03-06 10:31] LABS: Add Manual Diff / Slide Review NO; Basophils Absolute Auto 0 /uL (0-100); Basophils Percent Auto 0.1 % (0-2); Eosinophils Absolute Auto 0 /uL (0-450); Hematocrit 47.2 % (41-53); Hemoglobin 16.1 g/dL (13.5-17.5); Lymphocytes Absolute Auto 700 /uL (1100-4500); Lymphocytes Percent Auto 6.5 % (25-40); Mean Corpuscular Hemoglobin 32.9 PG (26-34); Mean Corpuscular Volume 96.8 fL (80-100); Monocytes Absolute Auto 1200 /uL (0-900); Neutrophils Absolute Auto 8300 /uL (1500-7000); Neutrophils Percent Auto 81.4 % (50-75); Platelet Count 199 X10^3/uL (150-400); Red Blood Cell Count 4.88 X10^6/uL (4.5-5.9); Red Cell Distribution Width 14.3 % (11.6-14.8); White Blood Cell Count 10.2 X10^3/uL (4.5-11.0)
[2019-03-06 10:36] LABS: Alanine Aminotransferase 69 IU/L (<50); Albumin 3.4 g/dL (3.5-5.0); Albumin Globulin Ratio 1.2 (1.0-2.8); Alkaline Phosphatase 51 U/L (38-126); Aspartate Aminotransferase 62 IU/L (17-59); BUN Creatinine Ratio 67.5 (6-22); Bilirubin Total 1.8 mg/dL (0.2-1.3); Blood Urea Nitrogen 27 mg/dL (9-20); Carbon Dioxide 35 mmol/L (22-32); Chloride 97 mmol/L (98-107); Estimated Glomerular Filt Rate > 60.0 mL/min (>60); Globulin 2.9 g/dL (1.7-4.1); Glucose 156 mg/dL (80-110); HEMOLYSIS 20 (0-50); Potassium 4.3 mmol/L (3.4-5.1); Sodium 141 mmol/L (137-145); Total Protein 6.3 g/dL (6.3-8.2)
[2019-03-06 10:37] LABS: Lactate (Lactic Acid) 1.5 mmol/L (0.7-2.1)
--- NOTE | 2019-03-06 10:39 | P.EN_ITS ---
Event Note Date Patient Seen: 03/06/19 Event Note: The patient was transferred to CT to have a CTA chest performed. Per nursing staff, while the patient was in CT he was satting well in mid 90's and was able to hold his hands up but then upon exit from CT became cyanotic and less responsive. A rapid response was called and the patient was intubated by ER physician at bedside without difficulty. There was no laryngeal edema noted and very mild thrush. CTA chest demonstrated prominent left-sided mucous plugging, with associated prominent left lower lobe consolidation, mild right lower lobe consolidation, trace bilateral pleural effusions and emphysematous changes. No pulmonary emboli were demonstrated. Plan to transfer patient to [facility] for higher level of care and specifically bronchoscopy for left-sided mainstem bronchus plugging as there is no bronchoscopy available at this acility.
--- NOTE | 2019-03-06 10:47 | PM.DS.1 ---
History of Present Illness History of Present Illness Date Patient Seen: 02/27/19 Chief complaint: Cervical Fusion Anterior/Posterior Narrative: Medicine consultation written by Dr. Jerome: Edouard Govea is a 63-year-old male with past medical history of hypertension and hypothyroidism who is postoperative day 0 after C3-C7 posterior fusion and ACDF with cages who needed to be intubated in the PACU as the patient was extremely somnolent. Blood gas was checked and his pCO2 was 130. The patient was intubated and brought to the ICU. History is obtained from the patient's at bedside. She states over the past 2 weeks the patient has been profoundly fatigued, mumbling, and falling asleep easily while sitting on the couch or sometimes even speaking with his . She does endorse periods of apnea but not profound snoring at night when he is asleep. He has woken up on occasion with anxiety about not being able to breathe. He fell and broke a rib approximately 3 months ago for which the patient has not been breathing heavily since. He has also been on opiate pain medications intermittently. The also endorses significant dyspnea on exertion, limited to a few feet. He smokes about a pack a day. She does endorse that he did drink alcohol up until his rib fracture a few months ago quite heavily. But has cut back. She did say he had 2 glasses of whiskey the night before surgery because he has been having difficulty sleeping. She also endorses an 80-90 lb weight loss over the past year which is unintentional. See separate H&P written by primary team Dr. Osullivan Discharge Providers Provider Date of admission: 02/27/19 05:48 Discharge Date: 03/06/19 Primary care physician: Rajinder Riddle Consults: 02/26/19 12:37 Consult to Respiratory Therapy Evaluate & Treat Comment: INPT 02/27-CONSUELO-no CPAP, wants a nicotine patch Physician Instructions: Evaluate and treat 02/27/19 14:30 Consult to Dietitian, Adult Routine Comment: Reason For Exam: unintentional weight loss 02/27/19 14:31 Consult to Occupational Therapy Evaluate & Treat Comment: Physician Instructions: Evaluate and treat Consult to Physical Therapy Evaluate & Treat Comment: Physician Instructions: Evaluate and Treat 02/27/19 14:48 Consult to Respiratory Therapy Routine Comment: Physician Instructions: Evaluate and treat 02/28/19 22:21 Consult to Speech Therapy Evaluate & Treat Comment: swallow eval post cervical surgery and extubation Physician Instructions: Evaluate and treat Discharge provider: Brittany Gilliam DO Summary Hospital Course Discharge Diagnosis: 1. Acute hypoxemic and hypercarbic respiratory failure, secondary to left mainstem bronchus mucus plugging, HCAP, and COPD exacerbation, not present on admission. Active. 2. Healthcare associated pneumonia, not present on admission. Active. 3. Probable COPD exacerbation, not present on admission. Resolving. 4. Anterior cervical fusion with laryngeal edema and dysphagia, present on admission. Resolving. 5. Atrial fibrillation with RVR, not present on admission. Active. 6. Acute severe protein calorie malnutrition, not present on admission. Active. 7. Acute metabolic encephalopathy, not present on admission. Active. 8. Oral and possible esophageal candidiasis, not present on admission. Active. 9. Hypertension, chronic, present on admission. Stable. 10. Hypothyroidism, chronic, present on admission. Stable. 11. Tobacco dependence, chronic, present on admission. Active. DVT prophylaxis: Heparin GI prophylaxis: Protonix Nutrition: TPN Hospital Course: Edourad Govea was admitted for anterior cervical fusion performed by Orthopedic surgery on 02/27/2019. Upon extubation the patient had a respiratory arrest and was reintubated. Chest x-ray demonstrated bibasilar infiltrates with mucus plugging. The patient was successfully extubated the next day 02/28/2019 to BiPAP but continued to have respiratory decompensation. CTA demonstrated left mainstem mucus plugging. The patient was reintubated for bronchoscopy at bedside to clear his mucus plugs and was extubated the following day. He has been on Zosyn for pneumonia. The patient has severe COPD with both hypoxemic and hypercarbic respiratory failure. His ABGs have demonstrated chronic hypercarbia with pCO2 60 to 80s. Today 03/06/2019 the patient continued to have significant respiratory decompensation and a CTA chest was performed. During the CTA the patient became cyanotic with respiratory distress requiring bag-valve mask and was reintubated by ED physician without difficulty. No laryngeal edema was evident. There was trace thrush. CTA chest did not demonstrate any evidence of pulmonary emboli and demonstrated plugging of left mainstem bronchus. Exam Vital Signs (past 8 hours): - 03/06/19 04:25 03/06/19 06:09 03/06/19 06:10 Temperature 98.0 F Pulse Rate 93 H 123 H Respiratory Rate 25 H 22 Blood Pressure 177/91 H 165/84 H 165/84 H Pulse Oximetry 90 L 93 03/06/19 06:15 03/06/19 06:43 03/06/19 07:07 Temperature Pulse Rate 125 H 116 H Respiratory Rate 28 H 28 H Blood Pressure 165/84 H 147/83 H Pulse Oximetry 92 93 94 03/06/19 07:45 03/06/19 07:49 03/06/19 09:23 Temperature 97.7 F Pulse Rate 120 H 120 H 119 H Respiratory Rate 24 24 Blood Pressure 152/113 H 159/95 H 151/91 H Pulse Oximetry 94 93 Fraction of Inspired Oxygen 45 Oxygen Delivery Method BiPAP Oxygen Flow Rate 3.5 Narrative Exam Narrative: General: Older gentleman lying in bed and in no acute distress, appears older than stated age, intubated and sedated. HEENT: Normocephalic, atraumatic. External ears without defect. Pupils equal, round, and reactive to light. Anicteric sclerae, moist conjunctivae, and no lid lag. Oropharynx erythematous with white exudate consistent with thrush. Neck: Supple. No jugular venous distension. No lymphadenopathy or thyromegaly. Cardiovascular: Irregularly irregular without murmurs rubs or gallops. Pulmonary: Diminished throughout, minimal breath sounds on left side, scattered rhonchi. No wheeze or rales. Passive on ventilator. Abdomen: Soft, bowel sounds present, nontender, nondistended. No hepatosplenomegaly or masses appreciated. Extremities: No clubbing, cyanosis, or edema. Peripheral vascular disease. Skin: Normal temperature, turgor, and texture; no rash, ulcers, or subcutaneous nodules appreciated. Objective Labs Result Diagrams: 03/06/19 10:00 03/06/19 10:00 Labs: Laboratory Results - last 24 hr 03/06/19 03/06/19 03/06/19 04:25 04:35 04:35 WBC 6.9 RBC 4.96 Hgb 16.2 Hct 48.2 MCV 97.3 MCH 32.6 MCHC 33.5 RDW 13.9 Plt Count 175 Neut % (Auto) 86.1 H Lymph % (Auto) 5.1 L [place] % (Auto) 8.7 Eos % (Auto) 0.0 L Baso % (Auto) 0.1 Neut # (Auto) 6000 Lymph # (Auto) 400 L [place] # (Auto) 600 Eos # (Auto) 0 Baso # (Auto) 0 ABG pH ABG pCO2 ABG pO2 ABG HCO3 ABG Total CO2 ABG O2 Saturation ABG Base Excess FiO2 Sodium 141 Potassium 3.5 Chloride 96 L Carbon Dioxide 38 H BUN 28 H Creatinine 0.40 L Estimated GFR > 60.0 BUN/Creatinine Ratio 70.0 H Glucose 158 H Lactate Calcium 9.2 Phosphorus 2.8 Magnesium 2.0 Total Bilirubin AST ALT Alkaline Phosphatase Total Creatine Kinase 36 L CK-MB (CK-2) TNP CK-MB (CK-2) Rel Index TNP Troponin I 0.050 H Total Protein Albumin Globulin Albumin/Globulin Ratio Procalcitonin TSH 03/06/19 03/06/19 03/06/19 04:35 04:35 06:22 WBC RBC Hgb Hct MCV MCH MCHC RDW Plt Count Neut % (Auto) Lymph % (Auto) [place] % (Auto) Eos % (Auto) Baso % (Auto) Neut # (Auto) Lymph # (Auto) [place] # (Auto) Eos # (Auto) Baso # (Auto) ABG pH 7.37 ABG pCO2 78.1 H* ABG pO2 87 ABG HCO3 45 H ABG Total CO2 47 H ABG O2 Saturation 96 ABG Base Excess 19.0 H FiO2 50 Sodium Potassium Chloride Carbon Dioxide BUN Creatinine Estimated GFR BUN/Creatinine Ratio Glucose Lactate Calcium Phosphorus Magnesium Total Bilirubin AST ALT Alkaline Phosphatase Total Creatine Kinase CK-MB (CK-2) CK-MB (CK-2) Rel Index Troponin I Total Protein Albumin Globulin Albumin/Globulin Ratio Procalcitonin 0.16 TSH 0.70 03/06/19 03/06/19 03/06/19 07:38 10:00 10:00 WBC 10.2 RBC 4.88 Hgb 16.1 Hct 47.2 MCV 96.8 MCH 32.9 MCHC 34.0 RDW 14.3 Plt Count 199 Neut % (Auto) 81.4 H Lymph % (Auto) 6.5 L [place] % (Auto) 12.0 Eos % (Auto) 0.0 L Baso % (Auto) 0.1 Neut # (Auto) 8300 H Lymph # (Auto) 700 L [place] # (Auto) 1200 H Eos # (Auto) 0 Baso # (Auto) 0 ABG pH 7.38 ABG pCO2 65.7 H* ABG pO2 86 ABG HCO3 39 H ABG Total CO2 41 H ABG O2 Saturation 96 ABG Base Excess 14.0 H FiO2 50 Sodium 141 Potassium 4.3 Chloride 97 L Carbon Dioxide 35 H BUN 27 H Creatinine 0.40 L Estimated GFR > 60.0 BUN/Creatinine Ratio 67.5 H Glucose 156 H Lactate Calcium 9.0 Phosphorus Magnesium Total Bilirubin 1.8 H AST 62 H ALT 69 H Alkaline Phosphatase 51 Total Creatine Kinase CK-MB (CK-2) CK-MB (CK-2) Rel Index Troponin I Total Protein 6.3 Albumin 3.4 L Globulin 2.9 Albumin/Globulin Ratio 1.2 Procalcitonin TSH 03/06/19 10:00 WBC RBC Hgb Hct MCV MCH MCHC RDW Plt Count Neut % (Auto) Lymph % (Auto) [place] % (Auto) Eos % (Auto) Baso % (Auto) Neut # (Auto) Lymph # (Auto) [place] # (Auto) Eos # (Auto) Baso # (Auto) ABG pH ABG pCO2 ABG pO2 ABG HCO3 ABG Total CO2 ABG O2 Saturation ABG Base Excess FiO2 Sodium Potassium Chloride Carbon Dioxide BUN Creatinine Estimated GFR BUN/Creatinine Ratio Glucose Lactate 1.5 Calcium Phosphorus Magnesium Total Bilirubin AST ALT Alkaline Phosphatase Total Creatine Kinase CK-MB (CK-2) CK-MB (CK-2) Rel Index Troponin I Total Protein Albumin Globulin Albumin/Globulin Ratio Procalcitonin TSH Discharge Plan Discharge Plan Patient Disposition: [facility] Other facility: [facility] Under care of provider: Dr. Bee, film flat inspector Discharge orders & Medications Prescriptions: No Action lisinopril 20 mg Tablet 20 mg PO DAILY RF: 0 levothyroxine 75 mcg Tablet 75 mcg PO DAILY RF: 0 ibuprofen 200 mg Tablet 400 mg PO Q6H PRN (Reason: Pain) RF: 0 Follow up/Referrals: Rajinder Riddle [Primary Care Provider] - Diet/Activity/Treatments Diet comment: TPN but may start TF if OG obtained Discharge Data Primary Care Provider: Rajinder Riddle
[2019-03-06 11:17] LABS: Creatine Kinase 33 U/L (55-170)
[2019-03-06 11:30] LABS: Fractionated Inspired Oxygen 35; HCO3 ABG 36 mmol/L (22-26); Oxygen Saturation ABG 91 % (95-100); PO2 ABG 56 mmHg (80-100); TCO2 ABG 37 mmol/L (21-31); pH ABG 7.52 (7.35-7.45)
[2019-03-06 11:30] LABS: Troponin I 0.046 ng/mL (0.01-0.034)
[2019-03-06] MEDS: FLUCONAZOLE 200 MG/100 ML PIGGYBACK 100 MG IV (11:30)
[2019-03-06] MEDS: PROPOFOL 1,000 MG/100 ML VIAL 2.205 MG IV (11:32)
[2019-03-06] MEDS: LORazepam 2 MG/ML INJ 1 MG IV (11:47)
[2019-03-06] MEDS: PANTOPRAZOLE 40 MG VIAL IV (11:50)
[2019-03-06] MEDS: LEVOTHYROXINE INJ 100 MCG/5 ML VIAL 50 MCG IV (11:58)
--- NOTE | 2019-03-06 12:12 | SLP.IPNOTE ---
Pt unavailable for treatment. Transferring to [facility].
--- NOTE | 2019-03-06 12:39 | CM.DPNOTE ---
DCP Cont: Pt will be transferred to [facility] today, see medical notes for detail. Updated Di at [facility] that pt was transferring. JW
--- NOTE | 2019-03-06 12:46 | PC.NURSE ---
PT INITIALLY ON BIPAP THIS AM AND STRUGGLING UPON THIS RN'S ARRIVAL- HIS FACE QUITE FLUSHED AND PT DIAPHORETIC-CHEST CTA ORDERED AND THIS RN ESCORTED- PT TOLERATED CT WELL AND ABLE TO HOLD HIS BILAT ARMS ABOVE HEAD DURING SCAN AND MAINTAINING SPO2 OF 92-95% UNTIL EXITING CT MACHINE SPO2 NOTED TO BE 59% AND PT CYANOTIC VERY RAPIDLY- URGNETLY BROUGHT BACK TO ICU WHERE HE REQUIRED INTUBATION- ETT 7.7- 23 AT TEETH TOLERATED WELL ( 10AM) TRANSFERRED TO [facility]IA [facility]- REPORT CALLED TO [facility] [place]
== END 2019-03-06 12:20 | disposition short-term general hospital (02) | DRG 453 ==
LOC: AC 07:08 → ICU 15:37 → AC 03-06 13:36
PROVIDERS: Anesthesiology; Internal Medicine; Nurse Practitioner Adult Health; Nurse Practitioner Gerontology; Specialist; Admitting Provider Orthopaedic Surgery; PCP Family Medicine Sports Medicine; Visit Provider Orthopaedic Surgery
PROC: 0RG20A0 Fusion of 2 or more Cervical Vertebral Joints with Interbody Fusion Device, Anterior Approach, Anterior Column, Open Approach (ICD-10-PCS; principal; 2019-02-27 07:45)
PROC: 0BJ08ZZ Inspection of Tracheobronchial Tree, Via Natural or Artificial Opening Endoscopic (ICD-10-PCS; CPT 31622; principal; 2019-03-02 18:00)
DX: M48.02 Spinal stenosis, cervical region (principal); J96.22 Acute and chronic respiratory failure with hypercapnia; J96.01 Acute respiratory failure with hypoxia; G93.41 Metabolic encephalopathy; J18.9 Pneumonia, unspecified organism; E43 Unspecified severe protein-calorie malnutrition; T17.590A Other foreign object in bronchus causing asphyxiation, initial encounter; J44.1 Chronic obstructive pulmonary disease with (acute) exacerbation; B37.0 Candidal stomatitis; M47.12 Other spondylosis with myelopathy, cervical region; F10.230 Alcohol dependence with withdrawal, uncomplicated; E87.2 Acidosis; Z68.23 Body mass index [BMI] 23.0-23.9, adult; Y95 Nosocomial condition; R25.2 Cramp and spasm; I10 Essential (primary) hypertension; I48.91 Unspecified atrial fibrillation; E03.9 Hypothyroidism, unspecified; F17.210 Nicotine dependence, cigarettes, uncomplicated; E87.6 Hypokalemia; X58.XXXA Exposure to other specified factors, initial encounter
CPT/HCPCS: 36415; 36569; 36600; 71045; 71275; 72040; 74230; 76000; 76705; 80048; 80053; 80076; 80305; 82550; 82805; 82962; 83605; 83735; 83880; 84100; 84145; 84443; 84484; 85025; 85610; 85730; 87070; 87077; 87147; 87186; 87205; 87797; 92526; 92610; 92611; 92950; 93005; 94002; 94003; 94640; 94660; 94667; 94668; 94762; 94770; 94799; 97110; 97116; 97162; 97166; 97530; 97535; C1776; G0378; B4189; C9113; G0379; J0360; J0690; J1100; J1170; J1450; J1630; J1642; J1650; J2060; J2250; J2310; J2405; J2543; J2704; J2920; J2930; J3010; J3480; Q9967